=== PATIENT | female | born 1945 | race Caucasian/White ===

== ENCOUNTER 2019-07-25 00:56 | Inpatient (IN) | payer MEDICARE, SELFPAY ==
[2019-07-25] VITALS (36 sets, daily range): BP systolic 105–158; BP diastolic 72–129; PULSE 76–140; RESP 17–31; TEMP 36.4–36.8; O2SAT 91–100; BMI 19.4
--- NOTE | ~2019-07-25 | XR_ITS ---
EXAMINATION: XR chest 1V portable EXAM DATE: 07/28/2019 08:06 INDICATION: Acute on chronic respiratory failure. TECHNIQUE: Portable AP frontal chest x-ray was obtained. Comparison is made to prior examination from 07/27/2019. FINDINGS: There is moderate chronic hyperinflation. Some scattered regions of post infectious residua . No confluent consolidation, pneumothorax or pleural effusion suspected. There are mild bony degener ative changes. Right shoulder replacement. IMPRESSION: Hyperinflation. No acute cardiopulmonary findings. Reviewed, dictated and finalized at location A. SETTER LOCKSTITCH
--- NOTE | ~2019-07-25 | XR_ITS ---
EXAMINATION: XR chest 1V portable DATE: 07/26/2019 05:18 INDICATION: Acute on chronic respiratory failure. TECHNIQUE: A single frontal view of the chest was obtained. COMPARISON: Chest single view 07/25/2019 FINDINGS: The lungs are hyperexpanded with lucencies, consistent with emphysema. A calcified left magdy g nodule is consistent with old granulomatous disease. There is mild atelectasis in the lower lung zo jamila. Skinfolds overlie the chest bilaterally. No pleural effusion or pneumothorax. The heart size is normal. There is a total right shoulder arthroplasty. IMPRESSION: 1. Mild atelectasis in the lower lung zones. 2. Emphysema. Reviewed, dictated and finalized at location A. BUILDER MACHINE
--- NOTE | ~2019-07-25 | XR_ITS ---
EXAMINATION: XR chest PICC line DATE: 07/28/2019 12:34 INDICATION: Central line placement. TECHNIQUE: A single frontal view of the chest was obtained. COMPARISON: Chest single view at 8:01 AM FINDINGS: The lungs are hyperexpanded with lucencies, consistent with emphysema. There is mild atelec tasis in the lower lung zones. No pleural effusion or pneumothorax. The heart size is normal. A left upper extremity peripherally inserted central venous catheter (PICC) is seen with tip at superior cav oatrial junction. There is a total right shoulder arthroplasty. IMPRESSION: 1. PICC tip at superior cavoatrial junction. 2. Mild atelectasis in the lower lung zones. 3. Emphysema. Reviewed, dictated and finalized at location A. EOTYPE MOLDER
--- NOTE | ~2019-07-25 | XR_ITS ---
EXAMINATION: XR chest 1V portable DATE: 07/29/2019 08:05 INDICATION: Chronic obstructive pulmonary disease exacerbation. TECHNIQUE: A single frontal view of the chest was obtained. COMPARISON: Chest single view 07/28/2019 FINDINGS: The lungs are hyperexpanded with lucencies, consistent with emphysema. There is mild atelec tasis in the lower lung zones. A calcified left lung nodule is consistent with old granulomatous dise ase. No pleural effusion or pneumothorax. The heart size is normal. A left upper extremity peripheral ly inserted central venous catheter (PICC) is seen with tip in the superior vena cava. There is a tot al right shoulder arthroplasty. IMPRESSION: 1. Mild atelectasis in the lower lung zones. 2. Emphysema. Reviewed, dictated and finalized at location A. GER INTERMEDIATE
--- NOTE | ~2019-07-25 | CT_ITS ---
EXAMINATION:CT chest high resolution wo al DATE: 07/30/2019 00:59 INDICATION: Hypoxemia. TECHNIQUE: Computed tomography (CT) of the chest was performed without intravenous contrast. Automate d exposure control and iterative reconstruction technique were employed. The dose-length product (DLP ) was 116.01 mGy-cm. COMPARISON: Chest single view 07/29/2019, chest CT 06/07/2007 FINDINGS: There is severe emphysema. There is mild atelectasis in the lower lobes. A calcified left l frances nodule and calcified left hilar lymph nodes are consistent with old granulomatous disease. No ple ural effusion. The heart size is normal. There are coronary artery calcifications. No pericardial eff usion. A left upper extremity peripherally inserted central venous catheter (PICC) is seen with tip a t the superior cavoatrial junction. There is a total right shoulder arthroplasty. There is a stable 2 .4 cm nodule in left thyroid lobe, likely benign. There is moderate thoracic spondylosis and severe c ervical and lumbar spondylosis. IMPRESSION: 1. Severe emphysema. 2. Mild atelectasis in the lower lobes. Reviewed, dictated and finalized at location A. K WAGON COOK
--- NOTE | ~2019-07-25 | XR_ITS ---
EXAMINATION: XR chest 1V portable DATE: 07/25/2019 01:57 INDICATION: Shortness of breath. TECHNIQUE: A single frontal view of the chest was obtained. COMPARISON: Chest single view 06/07/2007 FINDINGS: The lungs are hyperexpanded with lucencies, consistent with emphysema. There is mild atelec tasis in the lower lung zones. A calcified left lung nodule and calcified left hilar lymph nodes are consistent with old granulomatous disease. No pleural effusion or pneumothorax. The heart size is nor mal. There is a total right shoulder arthroplasty. IMPRESSION: 1. Emphysema. 2. Mild atelectasis in the lower lung zones. Reviewed, dictated and finalized at location A. TH ANALYTICS CONSULTANT
--- NOTE | ~2019-07-25 | XR_ITS ---
EXAMINATION: XR chest 1V portable DATE: 07/27/2019 12:13 INDICATION: Chronic obstructive pulmonary disease exacerbation. TECHNIQUE: A single frontal view of the chest was obtained. COMPARISON: Chest single view 07/26/2019 FINDINGS: There are lucencies in the lungs, consistent with emphysema. There is mild atelectasis in t he lower lung zones. No pleural effusion or pneumothorax. The heart size is normal. There is a total right shoulder arthroplasty. IMPRESSION: 1. Mild atelectasis in the lower lung zones. 2. Emphysema. Reviewed, dictated and finalized at location A. CLE INSPECTOR
--- NOTE | 2019-07-25 00:59 | ECG_ITS ---
Measurements Intervals [place] Rate: 133 P: 72 PA: 112 QRS: 71 QRSD: 82 T: 148 QT: 221 QTc: 329 Interpretive Statements SINUS TACHYCARDIA WITH SHORT PA INTERVAL ATRIAL AND VENTRICULAR PREMATURE COMPLEXES NONSPECIFIC ST & T-WAVE ABNORMALITY- DIFFUSE LEADS BASELINE ARTIFACT- I, II, III, AVR, AVL, AVF, V1-V6 ABNORMAL ECG Electronically Signed On 07-25-2019 6:57:35 CONTENT ANALYST by Keny Marcos D.O.
--- NOTE | 2019-07-25 01:00 | ED.SOB ---
HPI - SOB/Dyspnea General Chief Complaint: Shortness of Breath/Dyspnea Stated Complaint: SOB Time Seen by Provider: 07/25/19 00:59 Source: patient and RN notes reviewed Mode of arrival: other Limitations: other (hypoxia and respiratory distress) History of Present Illness HPI Narrative: Pt is a 74 y/o female who presents to the ED with c/o SOB that began 3 days ago (07/22/19). Pt has a hx of COPD and is a former smoker. Pt states that she is not on O2 NC at all times. Pt arrived to the ED with an O2 saturation a in the 70s. Pt states that she can tell whenever her sx starts and she normally goes to her as400 operator at [place] [facility] to get an abx and Prednisone. Pt denies having any nebulizers at home, but she states that she has inhalers. Pt believes she has a bad infection. She states her sx are alleviated minimally whenever she lays in her bed. Pt states that she recently had a chemical stress test. Pt reports a cough producing green phlegm, but deneis a fever, CP, and leg swelling. HPI is limited due to pt hypoxia and pt's respiratory distress. MD elicited complaint: shortness of breath Pertinent past history: COPD and pneumonia Timing: other (still present) Relieving factors: other (minimally while laying in her bed) Known history of: COPD and recurrent pneumonia Associated symptoms: cough (producing green phlegm) and other (limited due to pt hypoxia and respiratory distress) Treatment prior to arrival: oxygen Related Data Home oxygen amount: none Allergies Allergy/AdvReac Type Severity Reaction Status Date / Time No Known Allergies Allergy Unknown Verified 07/25/19 01:17 Review of Systems Review of Systems: Narrative: CONSTITUTIONAL: Denies a fever. CARDIOVASCULAR: Denies chest pain. RESPIRATORY: Reports dyspnea and a cough producing green phlegm. MUSCULOSKELETAL: Denies leg swelling. A complete ROS limited due to pt hypoxia and respiratory distress. [facility] Past Medical History Medical History (Updated 07/25/19 @ 02:15 by Callie Rowe MD) Arthritis Asthma Bronchitis COPD (chronic obstructive pulmonary disease) 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 Emphysema of lung GERD (gastroesophageal reflux disease) Headache IBS (irritable bowel syndrome) Pneumonia Surgical History Surgical History (Updated 07/25/19 @ 01:02 by Nelli Fuentes) History of hysterectomy History of spinal surgery History of thumb surgery right History of tubal ligation Hx of appendectomy Family History Family History (Updated 07/25/19 @ 01:03 by Nelli Fuentes) Other Arthritis Cerebrovascular accident Hypertension Social History Social History (Updated 07/25/19 @ 01:03 by Nelli Fuentes) Smoking status: Former smoker Tobacco type: cigarettes Smoking end date: 10/18/03 Gender identity (if verbalized by the patient): Female Exam Narrative: Exam Narrative: GENERAL: Thin, Severe respiratory distress. HEAD: Normocephalic, atraumatic. EYES: PERRLA and EOMI. ENT: Nares clear, no rhinorrhea or epistaxis. Mucous membranes dry NECK: Supple. CHEST: Coarse respirations throughout, poor aeration, with inspiratory and expiratory wheezing, severe respiratory distress. Use of accessory muscles. Hypoxic. HEART: Tachycardiac with regular rhythm. No murmur heard. Normal peripheral pulses. ABDOMEN: Soft, nontender, nondistended, normal active bowel sounds. EXTREMITIES: Normal range of motion. No edema. SKIN: Warm, dry, no rash. NEURO: No focal deficits. Alert and oriented X3. Course Course Emergency Course: Patient presented for evaluation of shortness of breath. At the time of initial assessment, ABCs are intact, vital signs notable for hypertension, tachycardia, tachypnea, hypoxia. Patient is not on home oxygen, oxygen saturation when she arrived to her room are in the 70s. Patient was immediately placed on a nonrebreather, respiratory therapy was called to bedside, immediately patient was given IV fluids, Solu-Medr
[2019-07-25] MEDS: ALBUTEROL SULFATE NEB 2.5 MG/0.5 ML INH 20 MG INHALATION (01:20)
[2019-07-25] MEDS: IPRATROPIUM BR 0.02% INH SOLN 0.5 MG/2.5 ML VIAL 2 MG INHALATION (01:21)
[2019-07-25 01:23] LABS: Basophils Percent Auto 0.2 % (0.2-1.2); Hematocrit 48.9 % (37.0-47.0); Immature Granulocyte Absolute 0.05 K/mm3 (0.00-0.031); Immature Granulocyte Percent A 0.4 % (0-0.5); Lymphocytes Absolute Auto 0.59 K/mm3 (0.9-3.2); Lymphocytes Percent Auto 4.8 % (18.3-44.2); Mean Corpuscular HGB Conc 32.7 g/dl (32-36); Mean Corpuscular Hemoglobin 29.7 pg (26-34); Mean Corpuscular Volume 90.9 fl (80-100); Mean Platelet Volume 9.8 fl (7.4-10.4); Monocytes Absolute Auto 0.5 K/mm3 (0.1-0.6); Monocytes Percent Auto 3.9 % (2.6-8.5); Neutrophils Absolute Auto 11.2 K/mm3 (1.3-6.7); Neutrophils Percent Auto 90.7 % (45.5-73.1); Platelet Count Result 398 k/mm3 (150-375); Red Blood Count 5.38 M/mm3 (4.2-5.4); Red Cell Distribution Width 14.4 % (11.5-14.5); White Blood Count 12.3 K/mm3 (4.5-10.0)
[2019-07-25] MEDS: SODIUM CHLORIDE 0.9% IV 1,000 ML 999 ML IV CONT ×2 (01:24→02:16)
[2019-07-25] MEDS: methylPREDNISolone SOD SUCC 125 MG VIAL IV PUSH ×3 (01:24→21:21)
[2019-07-25] MEDS: MAGNESIUM SULF 2 GM/WATER 50ML 2 GM/50 ML BAG IVPB (01:25)
[2019-07-25 01:34] LABS: Alveolar/Arterial O2 Gradient 168.5 mmHg; Base Excess ABG 2.3 mEq/l (+/-2.0); Carboxyhemoglobin 0.7 % THb (0-2.0); Device NASAL CANNULA; Fractional Inspired Oxygen 40 %; HCO3 ABG 27.2 mEq/l (22.0-26.0); Methemoglobin ABG 0.2 %THb (0-1.5); Oxygen Content ABG 19.7 %vol (16.0-22.0); Oxygen Saturation ABG 93.6 % (95.0-100.0); Oxyhemoglobin 92.1 % THb (90.0-100.0); PCO2 ABG 43.2 mmHg (35.0-45.0); PO2 FiO2 Ratio Arterial Blood 1.67 %; Site Drawn RIGHT BRACHIAL; Total Hemoglobin 15.2 g/dL (12.0-18.0); pH ABG 7.417 (7.350-7.450)
[2019-07-25 01:35] LABS: INR 1.7; Prothrombin Time 19.7 Seconds (11.1-14.7)
[2019-07-25 01:36] LABS: Partial Thromboplastin Time 28.6 SECONDS (22.3-36.8)
[2019-07-25 02:15] LABS: Blood Urea Nitrogen 18 mg/dL (7-17); Calcium 8.6 mg/dL (8.4-10.2); Carbon Dioxide 27 mmol/L (22-30); Chloride 99 mmol/L (98-107); Estimated Glomerular Filt Rate > 60; Glucose 151 mg/dL (65-105); Potassium 4.2 mmol/L (3.4-5.0); Sodium 136 mmol/L (137-145)
[2019-07-25] MEDS: LORAZEPAM INJ 2 MG/ML VIAL 0.5 MG IV PUSH (02:16)
[2019-07-25 02:24] LABS: NT Pro B Type Natriuretic Pept 345 PG/ML (5-100)
[2019-07-25 02:37] LABS: Lactic Acid Reflex 1.1 mmol/L (0.7-2.1)
[2019-07-25] MEDS: LORAZEPAM INJ 2 MG/ML VIAL 1 MG IV PUSH (02:57)
[2019-07-25] MEDS: SODIUM CHLORIDE 0.9% IV 1,000 ML 125 ML IV CONT ×2 (04:00→12:28)
[2019-07-25 06:01] LABS: Base Excess ABG -3.4 mEq/l (+/-2.0); HCO3 ABG 24.2 mEq/l (22.0-26.0); Oxygen Saturation ABG 96.3 % (95.0-100.0); PCO2 ABG 53.8 mmHg (35.0-45.0); PO2 ABG 95.8 mmHg (80.0-100.0)
[2019-07-25 06:02] LABS: Alveolar/Arterial O2 Gradient 127.5 mmHg; Carboxyhemoglobin 0.9 % THb (0-2.0); Methemoglobin ABG 0.1 %THb (0-1.5); Oxygen Content ABG 17.9 %vol (16.0-22.0); Oxyhemoglobin 95.1 % THb (90.0-100.0); PO2 FiO2 Ratio Arterial Blood 2.39 %; Reduced Hemoglobin 3.9 %THb (0-5.0); Total Hemoglobin 13.3 g/dL (12.0-18.0)
[2019-07-25 06:03] LABS: Device NON-INVASIVE VENT; Fractional Inspired Oxygen 40 %; Site Drawn RIGHT BRACHIAL
[2019-07-25 06:04] LABS: Non-Invasive Expiratory Pressure 5 CMH2O; Non-Invasive Inspiratory Pressure 12 CMH2O; Non-Invasive Vent Rate 8 /MIN
[2019-07-25] MEDS: methylPREDNISolone SOD SUCC 125 MG VIAL 60 MG IV PUSH (06:24)
[2019-07-25 06:44] LABS: Troponin I 0.391 ng/mL (0.000-0.034)
[2019-07-25] MEDS: ALBUTEROL SULFATE NEB 2.5 MG/0.5 ML INH 5 MG INHALATION ×3 (07:49→20:04)
[2019-07-25] MEDS: IPRATROPIUM BR 0.02% INH SOLN 0.5 MG/2.5 ML VIAL INHALATION ×3 (07:49→20:04)
[2019-07-25 09:05] LABS: Troponin I 0.527 ng/mL (0.000-0.034)
--- NOTE | 2019-07-25 10:10 | HP_ITS ---
DATE OF SERVICE: 07/25/2019 TIME: 035 CHIEF COMPLAINT: Shortness of breath. HISTORY OF PRESENT ILLNESS: The patient is a 74-year-old female with a past medical history of COPD, who presented to the ER with shortness of breath for the last 3 days. The patient is a former smoker, who quit smoking about 15 years ago. She has not been hospitalized for respiratory symptoms in over 10 years. Her last COPD exacerbation was in 2006. She has never required intubation due to her respiratory symptoms. The patient reports that for the last 3 days she has had a productive cough of green sputum with some green rhinorrhea as well. She has been having some mildly elevated temperatures up to 99 degrees at home, which occurred the day prior to presentation. She reports that her symptoms were relatively manageable, but then suddenly last night she became acutely more short of breath and came to the ER. She initially thought her symptoms were due to an upper respiratory tract infection and was not all that concerned until her shortness of breath worsened. When the patient arrived to the ER, she was saturating 76% on room air and required 5 L nasal cannula in order to get her oxygen saturations to 93%. She denies any nausea or vomiting. She reports her appetite has been relatively stable. 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 During that period of time, she had lost several pounds, but reports that she has always had a rather relatively thin body habitus. She thinks that her weight has been stable since that time. She denies any chest pain, palpitations, orthopnea, or paroxysmal nocturnal dyspnea. She has not noticed any lower extremity swelling. When she arrived to the ER, her heart rate was in the 120s to 130s, but she remained in sinus rhythm. She does not have any nebulizers at home. She reports her symptoms are improved minimally when she lays down. She recently had a chemical stress test that was reportedly negative. She denies any recent ill contacts. The patient does have a history of irritable bowel syndrome and has intermittent constipation. She denies any recent hematochezia or melena. REVIEW OF SYSTEMS: Except as documented, all systems were reviewed and are negative with pertinent positives and negatives per HPI. PAST MEDICAL HISTORY: 1. Moderate COPD noted on PFTs from January 2005. 2. Hypertension. 3. Chronic pain. 4. Rheumatoid arthritis affecting the hands and knees bilaterally. 5. Vitamin D deficiency. 6. Distant history of left lower extremity DVT in 2006. 7. Lumbar spine surgery x3. She reports that they told her that the next surgery she would have to have would be a fusion, but she is unsure if she would want to undergo that procedure. 8. 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 9. Right thumb reconstructive surgery. 10. Appendectomy. 11. Hysterectomy with bilateral salpingo-oophorectomy. 12. Right bunionectomy, November 2008. 13. Right reverse shoulder surgery 3 or 4 years ago. FAMILY HISTORY: Mother who was obese and of heart disease at 62 years old. Father who was an alcoholic and of complications of cirrhosis. A younger sister had a history of breast cancer but is still living and otherwise healthy. SOCIAL HISTORY: The patient lives with her of 40 years in [place]. She is a retired chartered accountant. She rarely drinks any alcohol. She quit smoking in 2003. Prior to quitting, she smoked a pack of cigarettes per day since a teenager for a little over a 43-[id number]-[id number]-year smoking history. She denies any illicit substance use. She is independent in activities of daily living. PRIMARY CARE [facility]YSI
--- NOTE | 2019-07-25 12:29 | WPDCNINT ---
Assessment and Plan Assessment and plan (1) Acute and chronic respiratory failure: Code(s): J96.20 - Acute and chronic respiratory failure, unspecified whether with hypoxia or hypercapnia Status: Acute Assessment and Plan: acute on chronic respiratory failure most likely related to pneumonia, COPD exacerbation - continue azithromycin, ceftriaxone - continue bronchodilators, Solu-Medrol - continue BiPAP (2) Pneumonia: Qualifiers: Laterality: bilateral Lung location: lower lobe of lung Pneumonia type: due to unspecified organism Qualified Code(s): J18.9 - Pneumonia, unspecified organism Code(s): J18.9 - Pneumonia, unspecified organism Status: Acute Assessment and Plan: patient with cough, green sputum likely bronchitis/pneumonia - continue antibiotics as above - sputum cultures have been ordered (3) Acute exacerbation of chronic obstructive airways disease: Code(s): J44.1 - Chronic obstructive pulmonary disease with (acute) exacerbation Status: Acute Assessment and Plan: continue BiPAP, steroids, antibiotics and bronchodilators (4) Anxiety: Code(s): F41.9 - Anxiety disorder, unspecified Status: Acute Assessment and Plan: patient very anxious, - started on Precedex infusion and tolerating BiPAP better (5) Elevated troponin: Code(s): R79.89 - Other specified abnormal findings of blood chemistry Status: Acute Assessment and Plan: patient with elevated troponin likely related to severe respiratory distress and acute on chronic respiratory failure - will obtain 1 more value of troponin. (6) DVT prophylaxis: Code(s): Z29.9 - Encounter for prophylactic measures, unspecified Status: Acute Assessment and Plan: Lovenox Additional Plan Discussed with patient, her and her daughter and updated them with patient's condition and plan of care. I answered all questions. We will work with the patient and help her get the right fit for her BiPAP mask so she is more compliant. Also discussed with them regarding intubation if necessary which the patient agreed for intubation. Code status: Full code Critical care time spent: 41 minutes Due to a high probability of clinically significant, life threatening deterioration, the patient required my highest level of preparedness to intervene emergently and I personally spent this critical care time directly and personally managing the patient. This critical care time included obtaining a history; examining the patient; pulse oximetry; ordering and review of studies; arranging urgent treatment with development of a management plan; evaluation of patient's response to treatment; frequent reassessment; and discussions with other providers. It was exclusive of separately billable procedures and treating other patients and teaching time. Please see Assessment and Plan section and the rest of the note for further information on patient assessment and treatment Pin Game Machine Inspector Consult Note Consult date: 07/25/19 Time Seen: 06:58 Reason for consult: acute on chronic respiratory failure, pneumonia, cough, COPD exacerbation HPI: Pamela Gallegos is a 74 year old female with past medical history of COPD, emphysema, GERD, IBS, pneumonia, arthritis a bronchitis presented the ED on 07/25/2019 with complains of shortness of breath /dyspnea along with cough and green sputum production. Patient denies any fevers, chest pain leg swelling. symptoms have been ongoing for about 3 days which worsened on the day of admission which prompted her to come to the ED. Upon arrival in the ER patient was saturating 76% on room air, required 5 L nasal cannula which brought her oxygen saturations 93%. patient was placed on BiPAP and transfer the ICU for further management. Patient seen examined the ICU, is in respiratory distress and using accessory muscles. Patient has been been
[2019-07-25] MEDS: MORPHINE SULFATE 4 MG/ML INJ IV PUSH ×3 (12:32→20:30)
[2019-07-25 14:59] LABS: Troponin I 0.409 ng/mL (0.000-0.034)
--- NOTE | 2019-07-25 15:19 | PM.IMPN ---
Progress Note: A&P Assessment and Plan (1) Elevated troponin: Code(s): R79.89 - Other specified abnormal findings of blood chemistry Status: Acute Assessment and Plan: Likley secondary to respiratory distress (2) Anxiety: Code(s): F41.9 - Anxiety disorder, unspecified Status: Acute Assessment and Plan: Precedex started by ICU Attending (3) DVT prophylaxis: Code(s): Z29.9 - Encounter for prophylactic measures, unspecified Status: Acute Assessment and Plan: Lovenox (4) Acute and chronic respiratory failure: Code(s): J96.20 - Acute and chronic respiratory failure, unspecified whether with hypoxia or hypercapnia Status: Acute Assessment and Plan: Secondary to copd excerbation , breathing treatments, Iv steroids and iv rocephin and zithromax Pt is npo with iv fluids Pt encouraged to wear her BIPAP machine as she is still in distress Cxr shows emphysema Pt is still smoking (5) Acute exacerbation of chronic obstructive airways disease: Code(s): J44.1 - Chronic obstructive pulmonary disease with (acute) exacerbation Status: Acute Assessment and Plan: Previous admission in 2006 Subjective Date/time seen: 07/25/19 15:19 Interval history: 74-year-old female with a past medical history of COPD, who presented to the ER with shortness of breath for the last 3 days. Admitted with acute on chronic respiratory distress secondary to COPD. Pt is not tolerating the BIPAP encouraged to wear the mask today. Pt feels hungry and thirsty. Pt is NPO due to ongoing respiratory distress. Review of Systems Review of Systems: Narrative: Tired, fatigue Cardiovascular: Cardiovascular: Denies chest pain and Denies palpitations Respiratory: Respiratory: Reports chest congestion, Reports cough, Reports dyspnea, Reports dyspnea on exertion and Reports wheezing Exam Narrative: Exam Narrative: Thin appearing, Const: General: in distress Neck: Neck: No no JVD Resp: Auscultation: wheezes and diminished lung sounds (Bilaterally ) Cardio: Rate: tachycardic GI: Auscultation: normal bowel sounds Neuro: Cognition (Neuro): normal cognition Extrem: General: normal to inspection Psych: Affect: Anxious affect present Objective Data Vital Signs Vital Signs: Vital Signs - 24 hr 07/25/19 01:00 07/25/19 01:19 07/25/19 01:25 Temperature 36.5 C Pulse Rate 138 H 128 H 120 H Respiratory Rate 22 H 30 H 22 H Blood Pressure 158/109 H Pulse Oximetry 94 96 07/25/19 01:30 07/25/19 01:34 07/25/19 01:45 Temperature Pulse Rate 118 H 119 H 129 H Respiratory Rate 22 H 19 31 H Blood Pressure 117/83 Pulse Oximetry 97 97 98 07/25/19 01:46 07/25/19 01:55 07/25/19 02:00 Temperature Pulse Rate 128 H 130 H 132 H Respiratory Rate 20 29 H 30 H Blood Pressure 146/102 H Pulse Oximetry 97 100 98 07/25/19 02:01 07/25/19 02:15 07/25/19 02:16 Temperature Pulse Rate 132 H 136 H 134 H Respiratory Rate 31 H 26 H 29 H Blood Pressure 145/129 H 147/112 H Pulse Oximetry 99 100 99 07/25/19 02:30 07/25/19 02:32 07/25/19 02:41 Temperature Pulse Rate 133 H 134 H 134 H Respiratory Rate 31 H 21 H 23 H Blood Pressure 139/95 H Pulse Oximetry 99 99 07/25/19 03:35 07/25/19 03:40 07/25/19 06:00 Temperature 36.8 C Pulse Rate 90 130 H 128 H Respiratory Rate 28 H 27 H 28 H Blood Pressure 112/72 118/80 Pulse Oximetry 96 97 96 07/25/19 07:30 07/25/19 07:50 07/25/19 08:00 Temperature 36.4 C Pulse Rate 120 H 120 H 120 H Respiratory Rate 25 H 20 26 H Blood Pressure 131/78 Pulse Oximetry 98 98 07/25/19 10:00 07/25/19 12:00 07/25/19 14:00 Temperature 36.8 C Pulse Rate 111 H 140 H 83 Respiratory Rate 24 H 25 H 17 Blood Pressure 136/75 139/97 H 105/79 Pulse Oximetry 91 96 97 Intake/Output Intake/Output: Intake & Output 07/22/19 07/23/19 07/24/19 07/25/19 23:59 23:59 23:59 23:59 Intak
[2019-07-25 15:49] LABS: Alveolar/Arterial O2 Gradient 52.9 mmHg; Base Excess ABG -0.5 mEq/l (+/-2.0); Fractional Inspired Oxygen 24 %; HCO3 ABG 25.1 mEq/l (22.0-26.0); Oxygen Content ABG 16.7 %vol (16.0-22.0); Oxyhemoglobin 91.2 % THb (90.0-100.0); PCO2 ABG 44.9 mmHg (35.0-45.0); PO2 ABG 64.8 mmHg (80.0-100.0); pH ABG 7.365 (7.350-7.450)
[2019-07-25] MEDS: ENOXAPARIN 40 MG/0.4 ML SYRINGE SUB-Q (16:22)
[2019-07-26] VITALS (26 sets, daily range): BP systolic 116–174; BP diastolic 71–130; PULSE 77–175; RESP 14–32; TEMP 36.4–37; O2SAT 92–100; BMI 19.5
[2019-07-26] MEDS: SODIUM CHLORIDE 0.9% IV 1,000 ML 75 ML IV CONT (00:45)
[2019-07-26] MEDS: MORPHINE SULFATE 4 MG/ML INJ IV PUSH ×3 (01:06→19:25)
[2019-07-26] MEDS: IPRATROPIUM BR 0.02% INH SOLN 0.5 MG/2.5 ML VIAL INHALATION ×4 (01:51→19:25)
[2019-07-26] MEDS: ALBUTEROL SULFATE NEB 2.5 MG/0.5 ML INH 5 MG INHALATION ×3 (01:51→13:38)
[2019-07-26 04:34] LABS: Hematocrit 35.2 % (37.0-47.0); Hemoglobin 11.7 g/dL (12.0-15.0); Immature Granulocyte Absolute 0.02 K/mm3 (0.00-0.031); Immature Granulocyte Percent A 0.3 % (0-0.5); Lymphocytes Absolute Auto 0.66 K/mm3 (0.9-3.2); Lymphocytes Percent Auto 9.8 % (18.3-44.2); Mean Corpuscular HGB Conc 33.2 g/dl (32-36); Mean Corpuscular Hemoglobin 29.9 pg (26-34); Mean Platelet Volume 9.6 fl (7.4-10.4); Monocytes Absolute Auto 0.4 K/mm3 (0.1-0.6); Monocytes Percent Auto 5.5 % (2.6-8.5); Neutrophils Absolute Auto 5.7 K/mm3 (1.3-6.7); Neutrophils Percent Auto 84.4 % (45.5-73.1); Platelet Count Result 248 k/mm3 (150-375); Red Blood Count 3.91 M/mm3 (4.2-5.4); Red Cell Distribution Width 14.6 % (11.5-14.5); White Blood Count 6.7 K/mm3 (4.5-10.0)
[2019-07-26 05:03] LABS: Alanine Aminotransferase 33 U/L (4-35); Albumin Level 3.3 g/dL (3.5-5.1); Alkaline Phosphatase 79 U/L (38-126); Aspartate Amino Transferase 28 U/L (14-36); Bilirubin,Total 0.1 mg/dL (0.2-1.3); Blood Urea Nitrogen 25 mg/dL (7-17); CRP 1.5 mg/dL (<1.0); Calcium 7.9 mg/dL (8.4-10.2); Carbon Dioxide 25 mmol/L (22-30); Chloride 102 mmol/L (98-107); Estimated Glomerular Filt Rate > 60; Glucose 146 mg/dL (65-105); Magnesium 2.3 mg/dL (1.6-2.3); Phosphorus 2.4 mg/dL (2.5-4.5); Potassium 3.8 mmol/L (3.4-5.0); Sodium 135 mmol/L (137-145)
[2019-07-26 05:08] LABS: Alveolar/Arterial O2 Gradient 137.4 mmHg; Base Excess ABG -0.8 mEq/l (+/-2.0); Carboxyhemoglobin 0.3 % THb (0-2.0); Fractional Inspired Oxygen 40 %; HCO3 ABG 24.2 mEq/l (22.0-26.0); Methemoglobin ABG 0.3 %THb (0-1.5); Oxygen Content ABG 17.1 %vol (16.0-22.0); Oxygen Saturation ABG 97.5 % (95.0-100.0); Oxyhemoglobin 96.4 % THb (90.0-100.0); PO2 ABG 100.7 mmHg (80.0-100.0); PO2 FiO2 Ratio Arterial Blood 2.52 %; Total Hemoglobin 12.5 g/dL (12.0-18.0); pH ABG 7.388 (7.350-7.450)
[2019-07-26 05:14] LABS: Device NON-INVASIVE VENT; Non-Invasive Expiratory Pressure 5 CMH2O; Non-Invasive Inspiratory Pressure 12 CMH2O; Non-Invasive Vent Rate 4 /MIN; Site Drawn RIGHT BRACHIAL
[2019-07-26] MEDS: methylPREDNISolone SOD SUCC 125 MG VIAL IV PUSH (05:21)
--- NOTE | 2019-07-26 06:00 | ECG_ITS ---
Measurements Intervals [place] Rate: 81 P: 61 ND: 118 QRS: 55 QRSD: 79 T: -9 QT: 373 QTc: 434 Interpretive Statements SINUS RHYTHM WITH SHORT ND INTERVAL NONSPECIFIC T-WAVE ABNORMALITY- INFERIOR LEADS BORDERLINE ECG Electronically Signed On 07-26-2019 9:18:37 BOXING PROMOTER by Keny Marcos D.O.
[2019-07-26 07:06] LABS: Device NASAL CANNULA; Site Drawn RIGHT BRACHIAL
[2019-07-26] MEDS: ALPRAZOLAM 0.25 MG TABLET PO ×3 (08:48→19:11)
--- NOTE | 2019-07-26 11:05 | WPDINTPN ---
Progress Note: A&P Assessment and Plan (1) Acute and chronic respiratory failure: Code(s): J96.20 - Acute and chronic respiratory failure, unspecified whether with hypoxia or hypercapnia Status: Acute Assessment and Plan: acute on chronic respiratory failure most likely related to pneumonia, COPD exacerbation - continue azithromycin, ceftriaxone - continue bronchodilators, Solu-Medrol, will decrease Solu-Medrol to 60 mg q.6 hours as patient continues to wheeze - continue BiPAP - ABGs and chest x-ray reviewed (2) Pneumonia: Qualifiers: Laterality: bilateral Lung location: lower lobe of lung Pneumonia type: due to unspecified organism Qualified Code(s): J18.9 - Pneumonia, unspecified organism Code(s): J18.9 - Pneumonia, unspecified organism Status: Acute Assessment and Plan: patient with cough, green sputum likely bronchitis/pneumonia - continue antibiotics as above - sputum cultures have been ordered (3) Acute exacerbation of chronic obstructive airways disease: Code(s): J44.1 - Chronic obstructive pulmonary disease with (acute) exacerbation Status: Acute Assessment and Plan: continue BiPAP, steroids, antibiotics and bronchodilators (4) Anxiety: Code(s): F41.9 - Anxiety disorder, unspecified Status: Acute Assessment and Plan: patient very anxious, - will wean Precedex, started patient on small dose Xanax (5) Elevated troponin: Code(s): R79.89 - Other specified abnormal findings of blood chemistry Status: Acute Assessment and Plan: patient with elevated troponin likely related to severe respiratory distress and acute on chronic respiratory failure - troponins have plateaued and trending down, (6) DVT prophylaxis: Code(s): Z29.9 - Encounter for prophylactic measures, unspecified Status: Acute Assessment and Plan: Lovenox Additional Plan Discussed with patient, her and her daughter and updated them with patient's condition and plan of care. I answered all questions. I will allow the patient to eat and drink. Discussed with patient regarding intermittent BiPAP use to which she agrees Code status: Full code Critical care time spent: 32 minutes Due to a high probability of clinically significant, life threatening deterioration, the patient required my highest level of preparedness to intervene emergently and I personally spent this critical care time directly and personally managing the patient. This critical care time included obtaining a history; examining the patient; pulse oximetry; ordering and review of studies; arranging urgent treatment with development of a management plan; evaluation of patient's response to treatment; frequent reassessment; and discussions with other providers. It was exclusive of separately billable procedures and treating other patients and teaching time. Please see Assessment and Plan section and the rest of the note for further information on patient assessment and treatment Subjective Date/time seen: 07/26/19 11:05 chief complaint: acute on chronic respiratory failure, COPD exacerbation, cough, pneumonia /bronchitis 07/26/2019: Patient seen and examined this morning. Remains on Precedex infusion at 0.5 mcg. Patient is receiving Solu-Medrol 125 mg q.8 hours per hospitalist. According the bedside RN, the patient is very anxious and the state of panic attack after receiving Solu-Medrol. Patient states her breathing is much better, wants to eat and drink, denies any chest pain, abdominal pain, nausea vomiting. Patient still complains of being winded. Review of Systems Review of Systems: All systems reviewed & are unremarkable except as noted in HPI and below Exam Const: General: in distress ( Respiratory distress) and uncomfortable HENMT: Other: BiPAP mask in place Eyes: Sclera: sclerae normal Pupils: Equal, round and reactive pu
--- NOTE | 2019-07-26 11:12 | PM.IMPN ---
Progress Note: A&P Assessment and Plan (1) Elevated troponin: Code(s): R79.89 - Other specified abnormal findings of blood chemistry Status: Acute Assessment and Plan: Likley secondary to respiratory distress (2) Anxiety: Code(s): F41.9 - Anxiety disorder, unspecified Status: Acute Assessment and Plan: Precedex started by ICU Attending, wean of today. restart pts home medications (3) DVT prophylaxis: Code(s): Z29.9 - Encounter for prophylactic measures, unspecified Status: Acute Assessment and Plan: Lovenox (4) Acute and chronic respiratory failure: Code(s): J96.20 - Acute and chronic respiratory failure, unspecified whether with hypoxia or hypercapnia Status: Acute Assessment and Plan: Secondary to copd excerbation , breathing treatments, Iv steroids and iv rocephin and zithromax Pt is respiratory distress is better, can start regular diet today Pt encouraged to wear her BIPAP mask as tolerated prn Cxr shows emphysema Pt is still smoking (5) Acute exacerbation of chronic obstructive airways disease: Code(s): J44.1 - Chronic obstructive pulmonary disease with (acute) exacerbation Status: Acute Assessment and Plan: Previous admission in 2006 Subjective Date/time seen: 07/26/19 11:12 Interval history: 74-year-old female with a past medical history of COPD, who presented to the ER with shortness of breath for the last 3 days. Admitted with acute on chronic respiratory distress secondary to COPD. Pt is not tolerating the BIPAP encouraged to wear the mask today. Pt feels better today less SOB. Pt can start a regular diet today. Pt to have water to drink near by as the mask dries her mouth. Can restart her home medications today. Pt to wean of precedex hopeful transfer to medical floor soon. Review of Systems Review of Systems: All systems reviewed & are unremarkable except as noted in HPI and below Cardiovascular: Cardiovascular: Denies chest pain, Denies palpitations, Reports dyspnea and Reports dyspnea on exertion Respiratory: Respiratory: Reports chest congestion, Reports cough, Reports dyspnea, Reports dyspnea on exertion and Reports wheezing Endocrine: Endocrine: Denies palpitations Allergic/Immunologic: Allergic/Immunologic: Reports wheezing Exam Narrative: Exam Narrative: Thin appearing, Const: General: in distress Neck: Neck: No no JVD Resp: Auscultation: wheezes and diminished lung sounds (Bilaterally ) Cardio: Rate: tachycardic GI: Auscultation: normal bowel sounds Neuro: Cognition (Neuro): normal cognition Extrem: General: normal to inspection Psych: Affect: Anxious affect present Objective Data Vital Signs Vital Signs: Vital Signs - 24 hr 07/25/19 12:00 07/25/19 13:20 07/25/19 13:45 Temperature 36.8 C Pulse Rate 140 H 108 H 116 H Respiratory Rate 25 H 24 H 20 Blood Pressure 139/97 H Pulse Oximetry 96 98 07/25/19 13:55 07/25/19 14:00 07/25/19 16:00 Temperature 36.4 C Pulse Rate 118 H 83 83 Respiratory Rate 20 17 19 Blood Pressure 105/79 109/72 Pulse Oximetry 97 92 07/25/19 18:00 07/25/19 20:00 07/25/19 20:04 Temperature 36.6 C Pulse Rate 87 84 88 Respiratory Rate 23 H 25 H 22 H Blood Pressure 125/76 136/90 Pulse Oximetry 97 96 07/25/19 20:16 07/25/19 20:19 07/25/19 22:00 Temperature Pulse Rate 81 76 83 Respiratory Rate 24 H 26 H 26 H Blood Pressure 111/75 Pulse Oximetry 98 96 07/25/19 23:10 07/26/19 00:00 07/26/19 01:52 Temperature 36.6 C Pulse Rate 84 77 87 Respiratory Rate 25 H 16 27 H Blood Pressure 120/81 Pulse Oximetry 96 97 07/26/19 01:56 07/26/19 01:59 07/26/19 02:00 Temperature Pulse Rate 85 86 103 H Respiratory Rate 23 H 23 H 19 Blood Pressure 116/90 Pulse Oximetry 96 96 07/26/19 04:00 07/26/19 05:11 07/26/19 06:00 Temperature 36.4 C Pulse Rate 77 79 106 H Respiratory Rate 14 22
[2019-07-26] MEDS: ENOXAPARIN 40 MG/0.4 ML SYRINGE SUB-Q (11:50)
[2019-07-26] MEDS: methylPREDNISolone SOD SUCC 125 MG VIAL 60 MG IV PUSH ×2 (12:55→17:26)
--- NOTE | 2019-07-26 19:15 | P.PNCROSS_ITS ---
Event Note Event Note Event Note: S: I received a call from the patient's nurse, Brenda, at 19:14 with an update on the patient. For the last several hours, the patient has become progressively more tachycardic and is now in a narrow complex rhythm with a ventricular rate in the 170s. Patient feeling more short of breath and has been started back on the BiPAP. At the time my evaluation, the patient is complaining only of shortness of breath and anxiety. She is coughing up dark lawrence/green phlegm. She denies palpitations and feeling of a racing heart. No lightheadedness or dizziness. No chest or pleuritic pain. She denies nausea and diaphoresis. O: Thin, frail elderly female sitting up in bed, cross-legged style. She is receiving a nebulizer via BiPAP. She is tachypneic and tachycardic, with a respiratory rate between 30 and 35 breaths per minute and a heart rate currently at 172 beats per minute. She is using accessory muscles to help ventilate. Lung sounds are significantly diminished throughout with inspiratory and expiratory wheezing, with increased inspiratory to expiratory phase. Scattered rhonchi clear with coughing. She appears mildly anxious. She is able to speak in 4 to 5 word sentences through the BiPAP. No edema noted. Skin is warm and slightly moist. Imaging and labs were reviewed from today, and she has significant emphysematous changes on chest x-rayWith mild atelectasis. A: Acute bronchospasm and tachycardia in a patient currently being treated for pneumonia, acute on chronic respiratory failure, and COPD exacerbation. P: Stat nebulizer, but change albuterol to Xopenex. Continue BiPAP. Morphine 4 milligrams given for air hunger as well as Ativan 1 milligram for anxiety. Solu-Medrol was decreased this afternoon to 60 milligrams q.6 hours; apparently patient did have some issues with higher doses of steroids. In fact, she was requiring a Precedex drip in order to tolerate such high doses of steroids. I think that she is tachycardic due to her work of breathing, and do not feel any intervention is necessary at this time, except for trying to improve her respiratory status. Should she not improve, she will be intubated and she is agreeable to that if need be. The patient needs to stop using her vape pen, and this subject was broached for short period of time. Due to a high probability of clinically significant, life threatening deterioration, the patient required my highest level of preparedness to intervene emergently and I personally spent this critical care time directly and personally managing the patient. This critical care time included obtaining a history; examining the patient; pulse oximetry; ordering and review of studies; arranging urgent treatment with development of a management plan; evaluation of patient's response to treatment; frequent reassessment; and discussions with the enrobing machine corder. It was exclusive of separately billable procedures and treating other patients and teaching time. Please see Assessment and Plan section and the rest of the note for further information on patient assessment and treatment. A total of 36 minutes critical care time was spent in attention of this patient.
--- NOTE | 2019-07-26 19:51 | ECG_ITS ---
Measurements Intervals [place] Rate: 137 P: 61 VT: 115 QRS: 55 QRSD: 73 T: -60 QT: 270 QTc: 408 Interpretive Statements SINUS TACHYCARDIA WITH SHORT VT INTERVAL BORDERLINE ST-T WAVE ABNORMALITY- INF/LAT LEADS BASELINE ARTIFACT- V5 ABNORMAL ECG Electronically Signed On 07-27-2019 7:20:56 CERTIFIED ANESTHESIOLOGIST ASSISTANT by Keny Marcos D.O.
[2019-07-26] MEDS: LORAZEPAM INJ 2 MG/ML VIAL 0.5 MG IV PUSH ×2 (19:55→21:20)
[2019-07-26 20:21] LABS: Alveolar/Arterial O2 Gradient 137.1 mmHg; Base Excess ABG 1.1 mEq/l (+/-2.0); Carboxyhemoglobin 0.3 % THb (0-2.0); Device NON-INVASIVE VENT; Fractional Inspired Oxygen 40 %; HCO3 ABG 27.1 mEq/l (22.0-26.0); Methemoglobin ABG 0.4 %THb (0-1.5); Oxygen Content ABG 19.4 %vol (16.0-22.0); Oxygen Saturation ABG 96.8 % (95.0-100.0); Oxyhemoglobin 95.6 % THb (90.0-100.0); PCO2 ABG 48.1 mmHg (35.0-45.0); PO2 ABG 92.8 mmHg (80.0-100.0); PO2 FiO2 Ratio Arterial Blood 2.32 %; Reduced Hemoglobin 3.7 %THb (0-5.0); Site Drawn LEFT BRACHIAL; Total Hemoglobin 14.4 g/dL (12.0-18.0); pH ABG 7.368 (7.350-7.450)
[2019-07-26 20:22] LABS: Non-Invasive Expiratory Pressure 5 CMH2O; Non-Invasive Inspiratory Pressure 12 CMH2O; Non-Invasive Vent Rate 4 /MIN
[2019-07-27] VITALS (26 sets, daily range): BP systolic 102–194; BP diastolic 74–162; PULSE 69–177; RESP 17–29; TEMP 36.1–37.1; O2SAT 91–98
[2019-07-27] MEDS: methylPREDNISolone SOD SUCC 125 MG VIAL 60 MG IV PUSH ×4 (00:42→17:05)
[2019-07-27] MEDS: IPRATROPIUM BR 0.02% INH SOLN 0.5 MG/2.5 ML VIAL INHALATION ×4 (01:37→20:55)
[2019-07-27] MEDS: LORAZEPAM INJ 2 MG/ML VIAL 1 MG IV PUSH ×2 (01:47→10:24)
[2019-07-27 04:54] LABS: Basophils Percent Auto 0.1 % (0.2-1.2); Hematocrit 39.1 % (37.0-47.0); Hemoglobin 12.8 g/dL (12.0-15.0); Immature Granulocyte Absolute 0.02 K/mm3 (0.00-0.031); Immature Granulocyte Percent A 0.2 % (0-0.5); Lymphocytes Absolute Auto 0.42 K/mm3 (0.9-3.2); Lymphocytes Percent Auto 4.8 % (18.3-44.2); Mean Corpuscular HGB Conc 32.7 g/dl (32-36); Mean Corpuscular Hemoglobin 29.9 pg (26-34); Mean Corpuscular Volume 91.4 fl (80-100); Mean Platelet Volume 9.8 fl (7.4-10.4); Monocytes Absolute Auto 0.4 K/mm3 (0.1-0.6); Monocytes Percent Auto 4.6 % (2.6-8.5); Neutrophils Absolute Auto 7.9 K/mm3 (1.3-6.7); Neutrophils Percent Auto 90.3 % (45.5-73.1); Platelet Count Result 280 k/mm3 (150-375); Red Blood Count 4.28 M/mm3 (4.2-5.4); Red Cell Distribution Width 14.6 % (11.5-14.5); White Blood Count 8.8 K/mm3 (4.5-10.0)
[2019-07-27 05:13] LABS: Blood Urea Nitrogen 22 mg/dL (7-17); Calcium 8.5 mg/dL (8.4-10.2); Carbon Dioxide 29 mmol/L (22-30); Chloride 103 mmol/L (98-107); Estimated Glomerular Filt Rate > 60; Glucose 135 mg/dL (65-105); Magnesium 2.3 mg/dL (1.6-2.3); Phosphorus 2.5 mg/dL (2.5-4.5); Potassium 3.4 mmol/L (3.4-5.0); Sodium 139 mmol/L (137-145)
[2019-07-27] MEDS: AMLODIPINE BESYLATE 5 MG TABLET 10 MG PO (09:36)
[2019-07-27] MEDS: MORPHINE SULFATE 4 MG/ML INJ IV PUSH (09:36)
[2019-07-27] MEDS: ALPRAZOLAM 0.25 MG TABLET PO (09:36)
[2019-07-27] MEDS: FOLIC ACID 1 MG TABLET PO (09:36)
[2019-07-27] MEDS: ENOXAPARIN 40 MG/0.4 ML SYRINGE SUB-Q (09:36)
--- NOTE | 2019-07-27 10:37 | PCDIET ---
Patient IMU status; consumed 25-50% of meals yesterday and has not been taking Ensure Clear. Currently on breathing mask with reported anxiety. Will follow up with patient 07/28/19, as previously scheduled.
--- NOTE | 2019-07-27 11:43 | WPDINTPN ---
Progress Note: A&P Assessment and Plan (1) Acute and chronic respiratory failure: Qualifiers: Respiratory failure complication: unspecified whether with hypoxia or hypercapnia Qualified Code(s): J96.20 - Acute and chronic respiratory failure, unspecified whether with hypoxia or hypercapnia Code(s): J96.20 - Acute and chronic respiratory failure, unspecified whether with hypoxia or hypercapnia Status: Acute Assessment and Plan: acute on chronic respiratory failure most likely related to pneumonia, COPD exacerbation. PATIENT HAS BEEN COMPLIANT WITH WEARING HER BIPAP - continue azithromycin, ceftriaxone - continue bronchodilators, Solu-Medrol, - continue BiPAP - will recheck ABGs chest x-ray - pulmonology consulted - patient started on Precedex infusion, added Seroquel, patient already on p.r.n. Ativan (2) Pneumonia: Qualifiers: Laterality: bilateral Lung location: lower lobe of lung Pneumonia type: due to unspecified organism Qualified Code(s): J18.9 - Pneumonia, unspecified organism Code(s): J18.9 - Pneumonia, unspecified organism Status: Acute Assessment and Plan: patient with cough, green sputum likely bronchitis/pneumonia - continue antibiotics as above - sputum cultures have been ordered - blood cultures negative x2 from 07/25/2019 (3) Acute exacerbation of chronic obstructive airways disease: Code(s): J44.1 - Chronic obstructive pulmonary disease with (acute) exacerbation Status: Acute Assessment and Plan: continue BiPAP, steroids, antibiotics and bronchodilators (4) Anxiety: Code(s): F41.9 - Anxiety disorder, unspecified Status: Acute Assessment and Plan: patient very anxious, - restarted on Precedex, patient is on p.r.n. Ativan - will add low-dose of Seroquel (5) Elevated troponin: Code(s): R79.89 - Other specified abnormal findings of blood chemistry Status: Acute Assessment and Plan: patient with elevated troponin likely related to severe respiratory distress and acute on chronic respiratory failure - troponins have plateaued and trending down, (6) DVT prophylaxis: Code(s): Z29.9 - Encounter for prophylactic measures, unspecified Status: Acute Assessment and Plan: Lovenox Additional Plan Discussed with patient, her and her daughter and updated them with patient's condition and plan of care. I answered all questions. \ Code status: Full code Critical care time spent: 32 minutes Due to a high probability of clinically significant, life threatening deterioration, the patient required my highest level of preparedness to intervene emergently and I personally spent this critical care time directly and personally managing the patient. This critical care time included obtaining a history; examining the patient; pulse oximetry; ordering and review of studies; arranging urgent treatment with development of a management plan; evaluation of patient's response to treatment; frequent reassessment; and discussions with other providers. It was exclusive of separately billable procedures and treating other patients and teaching time. Please see Assessment and Plan section and the rest of the note for further information on patient assessment and treatment Subjective Date/time seen: 07/27/19 11:43 REASON FOR CONSULT: acute on chronic respiratory failure, COPD exacerbation, cough, pneumonia /bronchitis 07/27/2019: patient was off Precedex on 07/26/2019 and was transferred to IMU status. Last evening patient was anxious, tachycardic in the 160s to 180s, tachypneic, seemed to be in a panic attack state. Patient was given Ativan morphine with mild improvement. This morning. Patient is tachycardic in the 140s, tachypnea. I was reconsulted to start Precedex infusion. Patient seen and examined the ICU later in the morning after being reconsulted. Patient is
[2019-07-27 12:32] LABS: Base Excess ABG 5.4 mEq/l (+/-2.0); Fractional Inspired Oxygen 30 %; HCO3 ABG 31.9 mEq/l (22.0-26.0); Oxygen Content ABG 19.6 %vol (16.0-22.0); Oxygen Saturation ABG 95.6 % (95.0-100.0); Oxyhemoglobin 95.1 % THb (90.0-100.0); PO2 ABG 80.5 mmHg (80.0-100.0); PO2 FiO2 Ratio Arterial Blood 2.68 %; Total Hemoglobin 14.6 g/dL (12.0-18.0); pH ABG 7.389 (7.350-7.450)
[2019-07-27 12:33] LABS: Device NON-INVASIVE VENT; Non-Invasive Expiratory Pressure 5 CMH2O; Non-Invasive Inspiratory Pressure 12 CMH2O; Non-Invasive Vent Rate 4 /MIN; Site Drawn LEFT BRACHIAL
[2019-07-27] MEDS: QUEtiapine FUMARATE 25 MG TABLET PO ×2 (12:43→22:05)
[2019-07-27] MEDS: ALPRAZOLAM 0.5 MG TABLET PO ×2 (12:43→17:06)
--- NOTE | 2019-07-27 13:04 | PM.IMPN ---
Progress Note: A&P Assessment and Plan (1) Elevated troponin: Code(s): R79.89 - Other specified abnormal findings of blood chemistry Status: Acute Assessment and Plan: Likley secondary to respiratory distress (2) Anxiety: Code(s): F41.9 - Anxiety disorder, unspecified Status: Acute Assessment and Plan: Pt restarted on precedex, pt is back to ICU status due to respiratory distress. Restart pts home anxiety medications (3) DVT prophylaxis: Code(s): Z29.9 - Encounter for prophylactic measures, unspecified Status: Acute Assessment and Plan: Lovenox (4) Acute and chronic respiratory failure: Qualifiers: Respiratory failure complication: unspecified whether with hypoxia or hypercapnia Qualified Code(s): J96.20 - Acute and chronic respiratory failure, unspecified whether with hypoxia or hypercapnia Code(s): J96.20 - Acute and chronic respiratory failure, unspecified whether with hypoxia or hypercapnia Status: Acute Assessment and Plan: Secondary to copd excerbation , breathing treatments, Iv steroids and iv rocephin and zithromax Pt is respiratory distress is worse today Pt encouraged to wear her BIPAP mask as tolerated prn Cxr shows emphysema Pt is still smoking (5) Acute exacerbation of chronic obstructive airways disease: Code(s): J44.1 - Chronic obstructive pulmonary disease with (acute) exacerbation Status: Acute Assessment and Plan: Previous admission in 2006 Subjective Date/time seen: 07/27/19 13:04 Interval history: 74-year-old female with a past medical history of COPD, who presented to the ER with shortness of breath for the last 3 days. Admitted with acute on chronic respiratory distress secondary to COPD. Pt is not tolerating the BIPAP encouraged to wear the mask today. Pt getting very anxious when she wears the mask her HR goes up. Anxiety medications increased and precedex restarted. Pt to be watched for further resp distress may need to be intubated if she cannot tolerate the BIPAP mask. Review of Systems Review of Systems: All systems reviewed & are unremarkable except as noted in HPI and below Cardiovascular: Cardiovascular: Denies chest pain, Denies palpitations, Reports dyspnea and Reports dyspnea on exertion Respiratory: Respiratory: Reports chest congestion, Reports cough, Reports dyspnea, Reports dyspnea on exertion and Reports wheezing Psychiatric: Psychiatric: Reports anxiety Endocrine: Endocrine: Denies palpitations Allergic/Immunologic: Allergic/Immunologic: Reports wheezing Exam Narrative: Exam Narrative: Thin appearing, Const: General: in distress Neck: Neck: No no JVD Resp: Auscultation: wheezes and diminished lung sounds (Bilaterally ) Cardio: Rate: tachycardic GI: Auscultation: normal bowel sounds Neuro: Cognition (Neuro): normal cognition Extrem: General: normal to inspection Psych: Affect: Anxious affect present Objective Data Vital Signs Vital Signs: Vital Signs - 24 hr 07/26/19 13:38 07/26/19 13:46 07/26/19 14:00 Temperature Pulse Rate 106 H 104 H 89 Respiratory Rate 29 H 25 H 16 Blood Pressure 122/79 Pulse Oximetry 100 07/26/19 16:00 07/26/19 18:00 07/26/19 19:00 Temperature 36.7 C Pulse Rate 132 H 133 H 141 H Respiratory Rate 20 22 H 32 H Blood Pressure 156/98 H 156/100 H 174/130 H Pulse Oximetry 96 92 95 07/26/19 19:20 07/26/19 19:23 07/26/19 19:33 Temperature Pulse Rate 175 H 175 H 166 H Respiratory Rate 27 H 27 H 30 H Blood Pressure Pulse Oximetry 98 07/26/19 20:00 07/26/19 22:00 07/27/19 00:00 Temperature 37.0 C 36.9 C Pulse Rate 152 H 117 H 112 H Respiratory Rate 30 H 16 17 Blood Pressure 129/114 H 116/75 115/83 Pulse Oximetry 98 96 98 07/27/19 01:37 07/27/19 01:47 07/27/19 02:00 Temperature Pulse Rate 130 H 124 H 130 H Respiratory Rate 28 H 28 H 28 H Blood Pressure 141/106
--- NOTE | 2019-07-27 19:26 | P.PCNBED_ITS ---
Procedures Central Line Placement: Right Femoral: Discussed w/ patient and/or surrogate, the non-emergent placement of a central venous catheter, including its clinical necessity/indication & associated potential risks & complications.: Yes (I have discussed with the patient and/or surrogate) The patient and/or surrogate understand(s) and acknowledge(s) the need to proceed with central venous catheter insertion as an important element of the patient's clinical management.: Yes (I have discussed with the patient and/or surrogate) Emergently Placed - (Given emergent patient conditions, temporal constraints may not have permitted and aforementioned informed consent.): No Consent: Impressions Chest X-Ray 07/27/19 12:14 IMPRESSION: 1. Mild atelectasis in the lower lung zones. 2. Emphysema. Central Line Date: 07/27/19 Central Line Time: 19:00 Pre-procedural Time-Out was completed immediately before starting the procedure and confirmed: Patient Identification, Site, Procedure, Patient Position and the Availability of Requisite Equipment.: Yes Patient Position: supine Patient placed on monitor/pulse ox: Yes Provider Prep: mask, sterile gown, sterile gloves, Max. sterile barrier precaut ions, cap and hand hygiene Central line prep: Povidone-Iodine 1% and sterile full body sheet applied Local anesthesia used: lidocaine 2% Amount of anesthesia used (ml): 3 Ultrasound used for placement: Yes Central line lumen inserted: triple Faroese: 7 Length (cm): 16 Depth of Insertion (cm): 15 Post procedure: sutured in place, good blood return and all ports aspirated, flushed, capped Post procedure x-ray: other (no x ray needed) Patient tolerated procedure: well Complications: none
[2019-07-28] VITALS (24 sets, daily range): BP systolic 101–154; BP diastolic 71–118; PULSE 72–125; RESP 17–26; TEMP 36.2–36.7; O2SAT 90–97
[2019-07-28] MEDS: methylPREDNISolone SOD SUCC 125 MG VIAL 60 MG IV PUSH ×4 (00:15→16:58)
[2019-07-28] MEDS: IPRATROPIUM BR 0.02% INH SOLN 0.5 MG/2.5 ML VIAL INHALATION ×4 (03:40→19:46)
[2019-07-28 05:20] LABS: Hematocrit 39.3 % (37.0-47.0); Hemoglobin 12.8 g/dL (12.0-15.0); Immature Granulocyte Absolute 0.03 K/mm3 (0.00-0.031); Immature Granulocyte Percent A 0.4 % (0-0.5); Lymphocytes Absolute Auto 0.44 K/mm3 (0.9-3.2); Mean Corpuscular HGB Conc 32.6 g/dl (32-36); Mean Corpuscular Hemoglobin 29.3 pg (26-34); Mean Corpuscular Volume 89.9 fl (80-100); Mean Platelet Volume 9.6 fl (7.4-10.4); Monocytes Absolute Auto 0.4 K/mm3 (0.1-0.6); Monocytes Percent Auto 5.3 % (2.6-8.5); Neutrophils Absolute Auto 6.4 K/mm3 (1.3-6.7); Neutrophils Percent Auto 88.3 % (45.5-73.1); Platelet Count Result 281 k/mm3 (150-375); Red Blood Count 4.37 M/mm3 (4.2-5.4); Red Cell Distribution Width 14.2 % (11.5-14.5); White Blood Count 7.3 K/mm3 (4.5-10.0)
[2019-07-28 05:37] LABS: Alveolar/Arterial O2 Gradient 115.5 mmHg; Base Excess ABG 7.9 mEq/l (+/-2.0); Carboxyhemoglobin 0.1 % THb (0-2.0); Fractional Inspired Oxygen 35 %; HCO3 ABG 31.7 mEq/l (22.0-26.0); Methemoglobin ABG 0.3 %THb (0-1.5); Modified Allen's Test Pass; Oxygen Content ABG 19.1 %vol (16.0-22.0); Oxygen Saturation ABG 97.2 % (95.0-100.0); Oxyhemoglobin 96.3 % THb (90.0-100.0); PCO2 ABG 41.2 mmHg (35.0-45.0); PO2 ABG 86.2 mmHg (80.0-100.0); PO2 FiO2 Ratio Arterial Blood 2.46 %; Reduced Hemoglobin 3.3 %THb (0-5.0); Site Drawn LEFT RADIAL; Total Hemoglobin 14.1 g/dL (12.0-18.0); pH ABG 7.504 (7.350-7.450)
[2019-07-28 05:37] LABS: Blood Urea Nitrogen 20 mg/dL (7-17); Calcium 8.2 mg/dL (8.4-10.2); Carbon Dioxide 34 mmol/L (22-30); Chloride 98 mmol/L (98-107); Estimated Glomerular Filt Rate > 60; Glucose 138 mg/dL (65-105); Magnesium 2.2 mg/dL (1.6-2.3); Phosphorus 1.9 mg/dL (2.5-4.5); Sodium 138 mmol/L (137-145)
[2019-07-28 05:38] LABS: Device NON-INVASIVE VENT
[2019-07-28 05:39] LABS: Non-Invasive Expiratory Pressure 5 CMH2O; Non-Invasive Inspiratory Pressure 12 CMH2O; Non-Invasive Vent Rate 4 /MIN
--- NOTE | 2019-07-28 06:38 | P.CDI_ITS ---
CDI Query Clarification Request -Dr Vizcaino has documented Pneumonia. -Grisel documented, Acute bronchospasm and tachycardia in a patient currently being treated for pneumonia, acute on chronic respiratory failure, and COPD exacerbation. - Pt is on Ceftriaxone and Zithromax -You don't mention pneumonia. Please clarify if pneumonia has been ruled in or ruled out. <Tamra Mercado RN - Last Filed: 07/28/19 06:42> Clarified Diagnosis (1) Acute exacerbation of chronic obstructive airways disease: Code(s): J44.1 - Chronic obstructive pulmonary disease with (acute) exac erbation <Tamra Mercado RN - Last Filed: 07/28/19 06:42> Status: Acute <Tamra Mercado RN - Last Filed: 07/28/19 06:42> Assessment and Plan: Acute on chronic respiratory failure, secondary to COPD exacerbati on. CXR did not show pneumonia <Natacha Dumont MD - Last Filed: 07/28/19 15:45>
[2019-07-28] MEDS: POTASSIUM PHOS,M-BASIC-D-BASIC 20 MMOL in SODIUM CHLORIDE 0.9% IV 250 ML 62.5 MMOL IVPB (08:22)
[2019-07-28] MEDS: ENOXAPARIN 40 MG/0.4 ML SYRINGE SUB-Q (08:37)
[2019-07-28] MEDS: FOLIC ACID 1 MG TABLET PO (08:37)
[2019-07-28] MEDS: AMLODIPINE BESYLATE 5 MG TABLET 10 MG PO (08:37)
[2019-07-28] MEDS: POTASSIUM CHLORIDE 20 MEQ TABLET 40 MEQ PO (08:37)
[2019-07-28] MEDS: ALPRAZOLAM 0.5 MG TABLET PO ×2 (08:37→13:10)
[2019-07-28] MEDS: QUEtiapine FUMARATE 25 MG TABLET PO ×2 (08:37→19:52)
[2019-07-28] MEDS: QUEtiapine FUMARATE 12.5 MG TABLET PO ×2 (08:38→19:52)
--- NOTE | 2019-07-28 09:37 | WPDINTPN ---
Progress Note: A&P Assessment and Plan (1) Acute and chronic respiratory failure: Qualifiers: Respiratory failure complication: unspecified whether with hypoxia or hypercapnia Qualified Code(s): J96.20 - Acute and chronic respiratory failure, unspecified whether with hypoxia or hypercapnia Code(s): J96.20 - Acute and chronic respiratory failure, unspecified whether with hypoxia or hypercapnia Status: Acute Assessment and Plan: acute on chronic respiratory failure likely related to pneumonia, COPD exacerbation, bronchitis. PATIENT HAS BEEN COMPLIANT WITH WEARING HER BIPAP - continue azithromycin, ceftriaxone for total of 5 days - continue bronchodilators, Solu-Medrol, - continue BiPAP when patient to sleep and during the day as needed - ABGs and chest x-ray reviewed - pulmonology consulted - patient started on Precedex infusion and Seroquel, - patient was placed on scheduled Xanax (2) Pneumonia: Qualifiers: Laterality: bilateral Lung location: lower lobe of lung Pneumonia type: due to unspecified organism Qualified Code(s): J18.9 - Pneumonia, unspecified organism Code(s): J18.9 - Pneumonia, unspecified organism Status: Acute Assessment and Plan: patient with cough, green sputum likely bronchitis/pneumonia - continue antibiotics as above - sputum cultures have been ordered - blood cultures negative x2 from 07/25/2019 (3) Acute exacerbation of chronic obstructive airways disease: Code(s): J44.1 - Chronic obstructive pulmonary disease with (acute) exacerbation Status: Acute Assessment and Plan: continue BiPAP, steroids, antibiotics and bronchodilators (4) Anxiety: Code(s): F41.9 - Anxiety disorder, unspecified Status: Acute Assessment and Plan: patient very anxious, - continue Seroquel and Xanax - wean Precedex gradually (5) Elevated troponin: Code(s): R79.89 - Other specified abnormal findings of blood chemistry Status: Acute Assessment and Plan: patient with elevated troponin likely related to severe respiratory distress and acute on chronic respiratory failure - troponins have plateaued and trending down, (6) DVT prophylaxis: Code(s): Z29.9 - Encounter for prophylactic measures, unspecified Status: Acute Assessment and Plan: Lovenox Additional Plan Discussed with patient, her and updated them with patient's condition and plan of care. I answered all questions. Code status: Full code Critical care time spent: 33 minutes Due to a high probability of clinically significant, life threatening deterioration, the patient required my highest level of preparedness to intervene emergently and I personally spent this critical care time directly and personally managing the patient. This critical care time included obtaining a history; examining the patient; pulse oximetry; ordering and review of studies; arranging urgent treatment with development of a management plan; evaluation of patient's response to treatment; frequent reassessment; and discussions with other providers. It was exclusive of separately billable procedures and treating other patients and teaching time. Please see Assessment and Plan section and the rest of the note for further information on patient assessment and treatment Subjective Date/time seen: 07/28/19 09:37 REASON FOR CONSULT: acute on chronic respiratory failure, COPD exacerbation, cough, pneumonia /bronchitis 07/28/2019: patient seen and examined in the ICU this morning. Is awake, alert, slightly confused but knows she is at the hospital. Patient follows simple commands. Patient states she has forgotten what to place between last night and this morning. Remains tachycardic 120s blood pressures have been stable. Patient on Precedex infusion at 0.3 mcg. States she continues to have some difficulty breathing from time to t
--- NOTE | 2019-07-28 10:41 | PCDIET ---
Nutrition Follow-Up Complete: Nutrition Diagnosis: Inadequate oral intake related to decreased appetite as evidenced by patient/spouse statements, reported weight loss, apparent wasting. Nutrition Goals: Intakes >50%, supplement acceptance Goal not met. Patient did not eat yesterday due to breathing difficulty, but now has breakfast tray and feels ready to eat. Has not yet tried Ensure Clear but would like to give it a try. Reviewed higher kcal/protein supplements available; patient only agreeable to try Thrive Ice Cream (270kcal, 9g protein). Recommend continuing regular diet with Ensure Clear (240kcal, 8g protein) and adding Thrive Ice Cream BID. Last recorded weight is 44.4 kg which is increased from admission. Bowel Motility: No documented bowel movement. Labs Reviewed: BUN (20), Cr (0.6), K (3.0), PO4 (1.9) Meds Noted: Rocephin, Precedex, Folic Acid, Methotrexate, Solu Medrol, K-Phos Additional Notes: s/p KCl. No documented skin breakdown. Will continue to monitor with same goals. Nutrition Monitoring and Evaluation: Follow up in 3 days.
[2019-07-28] MEDS: LIDOCAINE HCL 1% PF INJ 5 ML VIAL INFILTRATE (11:45)
[2019-07-28] MEDS: MORPHINE SULFATE 4 MG/ML INJ IV PUSH (11:48)
--- NOTE | 2019-07-28 14:59 | PM.IMPN ---
Progress Note: A&P Assessment and Plan (1) Elevated troponin: Code(s): R79.89 - Other specified abnormal findings of blood chemistry Status: Acute Assessment and Plan: Likley secondary to respiratory distress (2) Anxiety: Code(s): F41.9 - Anxiety disorder, unspecified Status: Acute Assessment and Plan: Pt restarted on precedex, pt is back to ICU status due to respiratory distress. Restart pts home anxiety medications (3) DVT prophylaxis: Code(s): Z29.9 - Encounter for prophylactic measures, unspecified Status: Acute Assessment and Plan: Lovenox (4) Acute and chronic respiratory failure: Qualifiers: Respiratory failure complication: unspecified whether with hypoxia or hypercapnia Qualified Code(s): J96.20 - Acute and chronic respiratory failure, unspecified whether with hypoxia or hypercapnia Code(s): J96.20 - Acute and chronic respiratory failure, unspecified whether with hypoxia or hypercapnia Status: Acute Assessment and Plan: Secondary to copd excerbation, breathing treatments, Iv steroids and iv rocephin and zithromax Pt is respiratory distress is ongoing Pt encouraged to wear her BIPAP mask as tolerated prn Cxr shows emphysema Pt is still smoking CXR daily and ABG daily (5) Acute exacerbation of chronic obstructive airways disease: Code(s): J44.1 - Chronic obstructive pulmonary disease with (acute) exacerbation Status: Acute Assessment and Plan: Previous admission in 2006 (6) Sinus tachycardia: Code(s): R00.0 - Tachycardia, unspecified Status: Acute Assessment and Plan: Likely secondary to anxiety and hypoxia (7) Acute hypokalemia: Code(s): E87.6 - Hypokalemia Status: Acute Assessment and Plan: Continue to watch, pt had potassium supplements and potassium rider Subjective Date/time seen: 07/28/19 14:59 Interval history: 74-year-old female with a past medical history of COPD, who presented to the ER with shortness of breath for the last 3 days. Admitted with acute on chronic respiratory distress secondary to COPD. Pt getting very anxious HR is 120-130s today. Precedex restarted. Pt to be watched for further respiratory distress, awaiting improvement in her HR. Review of Systems Review of Systems: All systems reviewed & are unremarkable except as noted in HPI and below Cardiovascular: Cardiovascular: Denies chest pain, Denies palpitations, Reports dyspnea and Reports dyspnea on exertion Respiratory: Respiratory: Reports chest congestion, Reports cough, Reports dyspnea, Reports dyspnea on exertion and Reports wheezing Psychiatric: Psychiatric: Reports anxiety Endocrine: Endocrine: Denies palpitations Allergic/Immunologic: Allergic/Immunologic: Reports wheezing Exam Narrative: Exam Narrative: Thin appearing, thin, emphysematous Const: General: in distress Neck: Neck: No no JVD Resp: Auscultation: wheezes and diminished lung sounds (Bilaterally ) Cardio: Rate: tachycardic GI: Auscultation: normal bowel sounds Neuro: Cognition (Neuro): normal cognition Extrem: General: normal to inspection Psych: Affect: Anxious affect present Objective Data Vital Signs Vital Signs: Vital Signs - 24 hr 07/27/19 16:00 07/27/19 16:01 07/27/19 17:10 Temperature 36.1 C L Pulse Rate 80 82 79 Respiratory Rate 19 18 Blood Pressure 102/74 Pulse Oximetry 91 93 07/27/19 18:00 07/27/19 18:01 07/27/19 20:00 Temperature 36.1 C L Pulse Rate 69 69 79 Respiratory Rate 18 22 H Blood Pressure 124/80 115/81 Pulse Oximetry 94 93 07/27/19 20:55 07/27/19 21:05 07/27/19 22:00 Temperature Pulse Rate 78 73 117 H Respiratory Rate 19 20 Blood Pressure Pulse Oximetry 91 07/27/19 22:30 07/28/19 00:00 07/28/19 02:00 Temperature 36.6 C Pulse Rate 96 81 78 Respiratory Rate 21 H 21 H 18 Blood Pressure 115/82 101/71 125
[2019-07-28] MEDS: ALPRAZOLAM 0.5 MG TABLET 1 MG PO (16:58)
[2019-07-28] MEDS: METOPROLOL TARTRATE 12.5 MG TABLET PO (19:52)
[2019-07-28] MEDS: TRAMADOL HCL 50 MG TABLET PO (21:43)
--- NOTE | 2019-07-28 22:00 | PC.NURSE ---
This RN at bedside to check on patient. Pt upset and states that other nurse who responded to call light looked at her like a drug addict when she asked for pain medication. Pt is crying at this time and states that they were giving me morphine like candy this whole time and that the tramadol that was given to her for her pain will not help. Explained that if the tramadol does not help that we can try stronger pain meds and offered to get patient a heating pad. Pt emotional but calmed down and thanked this RN for listening and helping her.
[2019-07-28] MEDS: LORAZEPAM INJ 2 MG/ML VIAL 1 MG IV PUSH (22:11)
[2019-07-29] VITALS (27 sets, daily range): BP systolic 115–159; BP diastolic 78–110; PULSE 61–122; RESP 14–27; TEMP 36.3–36.8; O2SAT 92–98
[2019-07-29] MEDS: methylPREDNISolone SOD SUCC 125 MG VIAL 60 MG IV PUSH ×4 (00:07→18:18)
--- NOTE | 2019-07-29 00:17 | PC.NURSE ---
This RN went to pt bedside to put patient on bipap. Pt asked earlier that we wait since she wanted to stay up later and watch some tv. Patient asks for ice water so that she can lift up bipap mask and sip ice water through a straw. This RN explained to pt that this is inappropriate and can put pt at high risk for aspiration and can also break the seal on pt's bipap. Asked that pt call when she needs a break and this RN will come to bedside to assist her with getting a drink of water. Pt became irate immediately and claims that her RN last night allowed her to do this as well and that the doctor told her she could as well. This RN was her nurse last night and did not allow this. Pt became increasingly agitated and intentionally threw trash on the floor and when asked not to throw trash on the floor states I'm sorry if you don't like your job.
[2019-07-29] MEDS: IPRATROPIUM BR 0.02% INH SOLN 0.5 MG/2.5 ML VIAL INHALATION ×4 (01:51→20:35)
[2019-07-29 04:42] LABS: Hematocrit 36.4 % (37.0-47.0); Hemoglobin 11.9 g/dL (12.0-15.0); Mean Corpuscular HGB Conc 32.7 g/dl (32-36); Mean Corpuscular Hemoglobin 29.8 pg (26-34); Mean Platelet Volume 9.4 fl (7.4-10.4); Platelet Count Result 232 k/mm3 (150-375); Red Cell Distribution Width 14.5 % (11.5-14.5)
[2019-07-29 05:16] LABS: Blood Urea Nitrogen 22 mg/dL (7-17); Calcium 7.6 mg/dL (8.4-10.2); Carbon Dioxide 34 mmol/L (22-30); Chloride 100 mmol/L (98-107); Estimated Glomerular Filt Rate > 60; Glucose 177 mg/dL (65-105); Potassium 4.3 mmol/L (3.4-5.0); Sodium 138 mmol/L (137-145)
[2019-07-29] MEDS: ALPRAZOLAM 0.5 MG TABLET 1 MG PO (08:00)
[2019-07-29] MEDS: QUEtiapine FUMARATE 25 MG TABLET 50 MG PO (08:00)
[2019-07-29] MEDS: AMLODIPINE BESYLATE 5 MG TABLET 10 MG PO (08:02)
[2019-07-29] MEDS: ENOXAPARIN 40 MG/0.4 ML SYRINGE SUB-Q (08:03)
[2019-07-29] MEDS: METOPROLOL TARTRATE 12.5 MG TABLET PO ×2 (08:03→20:56)
[2019-07-29] MEDS: FOLIC ACID 1 MG TABLET PO (08:04)
[2019-07-29 08:13] LABS: Blood Urea Nitrogen 22 mg/dL (7-17); Carbon Dioxide 35 mmol/L (22-30); Chloride 99 mmol/L (98-107); Estimated Glomerular Filt Rate > 60; Glucose 151 mg/dL (65-105); Potassium 4.1 mmol/L (3.4-5.0); Sodium 138 mmol/L (137-145)
[2019-07-29 08:20] LABS: Alveolar/Arterial O2 Gradient 147.9 mmHg; Base Excess ABG 5.4 mEq/l (+/-2.0); Carboxyhemoglobin 0.2 % THb (0-2.0); Device NASAL CANNULA; Fractional Inspired Oxygen 36 %; HCO3 ABG 29.1 mEq/l (22.0-26.0); Methemoglobin ABG 0.3 %THb (0-1.5); Modified Allen's Test Pass; Oxygen Content ABG 18.8 %vol (16.0-22.0); Oxygen Saturation ABG 93.7 % (95.0-100.0); Oxyhemoglobin 92.7 % THb (90.0-100.0); PCO2 ABG 39.4 mmHg (35.0-45.0); PO2 ABG 63.1 mmHg (80.0-100.0); PO2 FiO2 Ratio Arterial Blood 1.75 %; Reduced Hemoglobin 6.8 %THb (0-5.0); Site Drawn RIGHT RADIAL; Total Hemoglobin 14.4 g/dL (12.0-18.0); pH ABG 7.486 (7.350-7.450)
--- NOTE | 2019-07-29 09:57 | WPDINTPN ---
Progress Note: A&P Assessment and Plan (1) Acute and chronic respiratory failure: Qualifiers: Respiratory failure complication: unspecified whether with hypoxia or hypercapnia Qualified Code(s): J96.20 - Acute and chronic respiratory failure, unspecified whether with hypoxia or hypercapnia Code(s): J96.20 - Acute and chronic respiratory failure, unspecified whether with hypoxia or hypercapnia Status: Acute Assessment and Plan: acute on chronic respiratory failure likely related to pneumonia, COPD exacerbation, bronchitis. PATIENT HAS BEEN COMPLIANT WITH WEARING HER BIPAP - continue azithromycin, ceftriaxone stop antibiotics - continue bronchodilators, Solu-Medrol, - continue BiPAP when patient to sleep and during the day as needed - ABGs and chest x-ray reviewed - pulmonology consulted, await evaluation and recommendation - Seroquel does decreased - will decrease Xanax to 0.5 mg Q 8 hours scheduled - OFF PRECEDEX INFUSION (2) Pneumonia: Qualifiers: Laterality: bilateral Lung location: lower lobe of lung Pneumonia type: due to unspecified organism Qualified Code(s): J18.9 - Pneumonia, unspecified organism Code(s): J18.9 - Pneumonia, unspecified organism Status: Acute Assessment and Plan: patient with cough, green sputum likely bronchitis/pneumonia - antibiotics stopped on 07/29/2019 - sputum cultures have been ordered and pending - blood cultures negative x2 from 07/25/2019 (3) Acute exacerbation of chronic obstructive airways disease: Code(s): J44.1 - Chronic obstructive pulmonary disease with (acute) exacerbation Status: Acute Assessment and Plan: continue BiPAP, steroids, and bronchodilators (4) Anxiety: Code(s): F41.9 - Anxiety disorder, unspecified Status: Acute Assessment and Plan: patient very anxious, - continue Seroquel and Xanax, will will reduce dosage of both medication - off Precedex infusion (5) Elevated troponin: Code(s): R79.89 - Other specified abnormal findings of blood chemistry Status: Acute Assessment and Plan: patient with elevated troponin likely related to severe respiratory distress and acute on chronic respiratory failure - troponins have plateaued and trending down, (6) DVT prophylaxis: Code(s): Z29.9 - Encounter for prophylactic measures, unspecified Status: Acute Assessment and Plan: Lovenox Additional Plan Discussed with patient, her and updated them with patient's condition and plan of care. I answered all questions. Code status: Full code Critical care time spent: 31 minutes Due to a high probability of clinically significant, life threatening deterioration, the patient required my highest level of preparedness to intervene emergently and I personally spent this critical care time directly and personally managing the patient. This critical care time included obtaining a history; examining the patient; pulse oximetry; ordering and review of studies; arranging urgent treatment with development of a management plan; evaluation of patient's response to treatment; frequent reassessment; and discussions with other providers. It was exclusive of separately billable procedures and treating other patients and teaching time. Please see Assessment and Plan section and the rest of the note for further information on patient assessment and treatment Subjective Date/time seen: 07/29/19 09:57 REASON FOR CONSULT: acute on chronic respiratory failure, COPD exacerbation, cough, pneumonia /bronchitis 07/29/2019: patient seen and examined in the ICU this morning. Is awake, alert, More coherent this morning. Less tachycardic, on 4 L nasal cannula with good O2 sats, She did wear her BiPAP overnight. OFF Precedex infusion. Hemodynamically stable, adequate urine output. Review of Systems Review of Systems: Jas
[2019-07-29] MEDS: ALPRAZOLAM 0.5 MG TABLET PO ×2 (14:19→20:56)
--- NOTE | 2019-07-29 16:28 | PM.IMPN ---
Progress Note: A&P Assessment and Plan (1) Acute exacerbation of chronic obstructive airways disease: Code(s): J44.1 - Chronic obstructive pulmonary disease with (acute) exacerbation Status: Acute Assessment and Plan: Acute on chronic respiratory failure, secondary to COPD exacerbation. CXR did not show pneumonia Additional Plan Assessment and Plan (1) Elevated troponin: Code(s): R79.89 - Other specified abnormal findings of blood chemistry Status: Acute Assessment and Plan: Likely secondary to respiratory distress (2) Anxiety: Code(s): F41.9 - Anxiety disorder, unspecified Status: Acute Assessment and Plan: Continue anxiety medications. Add metoprolol orally to bring down HR (3) DVT prophylaxis: Code(s): Z29.9 - Encounter for prophylactic measures, unspecified Status: Acute Assessment and Plan: Lovenox (4) Acute and chronic respiratory failure: Qualifiers: Respiratory failure complication: unspecified whether with hypoxia or hypercapnia Qualified Code(s): J96.20 - Acute and chronic respiratory failure, unspecified whether with hypoxia or hypercapnia Code(s): J96.20 - Acute and chronic respiratory failure, unspecified whether with hypoxia or hypercapnia Status: Acute Assessment and Plan: Secondary to copd excerbation, breathing treatments, Iv steroids and iv rocephin and zithromax Pt is respiratory distress is ongoing Pt encouraged to wear her BIPAP mask as tolerated prn Cxr shows emphysema Pt is still smoking CXR daily and ABG daily (5) Acute exacerbation of chronic obstructive airways disease: Code(s): J44.1 - Chronic obstructive pulmonary disease with (acute) exacerbation Status: Acute Assessment and Plan: Previous admission in 2006 (6) Sinus tachycardia: Code(s): R00.0 - Tachycardia, unspecified Status: Acute Assessment and Plan: Likely secondary to anxiety and hypoxia (7) Acute hypokalemia: Code(s): E87.6 - Hypokalemia Resolved Subjective Date/time seen: 07/29/19 16:28 Interval history: 74-year-old female with a past medical history of COPD, who presented to the ER with shortness of breath for the last 3 days. Admitted with acute on chronic respiratory distress secondary to COPD. Pt getting very anxious HR is 118 today. Bp is high 150/101. Pt had panic attack yesterday had to have anxoltyics and seroquel. Pt is off precedex HR and Bp raising up continue to watch in ICU increase dose of metoprolol Review of Systems Review of Systems: All systems reviewed & are unremarkable except as noted in HPI and below Cardiovascular: Cardiovascular: Denies chest pain, Denies palpitations, Reports dyspnea and Reports dyspnea on exertion Respiratory: Respiratory: Reports chest congestion, Reports cough, Reports dyspnea, Reports dyspnea on exertion and Reports wheezing Psychiatric: Psychiatric: Reports anxiety Endocrine: Endocrine: Denies palpitations Allergic/Immunologic: Allergic/Immunologic: Reports wheezing Exam Narrative: Exam Narrative: Thin appearing, thin, emphysematous Const: General: in distress Neck: Neck: No no JVD Resp: Auscultation: wheezes and diminished lung sounds (Bilaterally ) Cardio: Rate: tachycardic GI: Auscultation: normal bowel sounds Neuro: Cognition (Neuro): normal cognition Extrem: General: normal to inspection Psych: Affect: Anxious affect present Objective Data Vital Signs Vital Signs: Vital Signs - 24 hr 07/28/19 18:00 07/28/19 19:46 07/28/19 19:52 Temperature Pulse Rate 112 H 119 H 112 H Respiratory Rate 23 H 20 Blood Pressure 141/81 H Pulse Oximetry 94 07/28/19 19:53 07/28/19 20:00 07/28/19 22:00 Temperature 36.7 C Pulse Rate 118 H 118 H 104 H Respiratory Rate 20 26 H 18 Blood Pressure 146/104 H 154/113 H Pulse Oximetry 96 93 07/28/19 22:45 07/29/19 00:00 07/29/19 01:51 Jazzy
[2019-07-29] MEDS: METOPROLOL TARTRATE 25 MG TABLET PO (17:13)
[2019-07-29] MEDS: SODIUM CHLORIDE 0.9% IV 1,000 ML 75 ML IV CONT (18:18)
[2019-07-29] MEDS: TRAMADOL HCL 50 MG TABLET PO (18:20)
--- NOTE | 2019-07-29 20:49 | PM.PNPUL ---
Subjective Date/time seen: 07/29/19 20:49 Please see dictation#[id number]. Thank you for the consultation. 1. COPD exacerbation 2. Acute hypoxemic resp failure now on 4 L/min, none at home 2. history tobacco none x 15 years 3. 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 *Check HRCT for possible signs of pneumonia that cannot be seen on plain CXR, as well as RA-related lung changes or side effects from mtx/hydroxychloriquine. RA can be associated with opportunistic infections. *Will check an echo for possible cardiac dysfunction that may be contributing to this prolonged episode of hypoxemia. She is taking a while to improve, which may be normal for her, or may be due to something else in addition to her COPD. Objective Data Vital Signs Vital Signs: Vital Signs - 24 hr 07/28/19 22:00 07/28/19 22:45 07/29/19 00:00 Temperature 36.8 C Pulse Rate 104 H 72 112 H Respiratory Rate 18 20 21 H Blood Pressure 154/113 H 148/110 H Pulse Oximetry 93 93 92 07/29/19 01:51 07/29/19 01:57 07/29/19 01:59 Temperature Pulse Rate 88 77 86 Respiratory Rate 20 22 H 20 Blood Pressure Pulse Oximetry 94 07/29/19 02:00 07/29/19 04:00 07/29/19 05:55 Temperature 36.5 C Pulse Rate 72 66 62 Respiratory Rate 21 H 20 Blood Pressure 115/78 120/83 Pulse Oximetry 92 93 07/29/19 06:00 07/29/19 08:00 07/29/19 08:03 Temperature 36.3 C L Pulse Rate 61 80 82 Respiratory Rate 16 21 H Blood Pressure 139/94 H 135/92 H Pulse Oximetry 94 93 07/29/19 08:35 07/29/19 08:45 07/29/19 10:00 Temperature Pulse Rate 73 75 88 Respiratory Rate 20 20 21 H Blood Pressure 119/84 Pulse Oximetry 92 92 07/29/19 12:00 07/29/19 13:40 07/29/19 13:50 Temperature 36.5 C Pulse Rate 89 95 93 Respiratory Rate 17 20 20 Blood Pressure 131/87 Pulse Oximetry 95 07/29/19 14:00 07/29/19 15:56 07/29/19 16:00 Temperature 36.8 C Pulse Rate 103 H 118 H Respiratory Rate 24 H 27 H Blood Pressure 140/89 150/101 H Pulse Oximetry 93 94 94 07/29/19 17:13 07/29/19 18:00 07/29/19 20:00 Temperature 36.6 C Pulse Rate 122 H 91 110 H Respiratory Rate 14 18 Blood Pressure 159/96 H 147/92 H Pulse Oximetry 96 94 07/29/19 20:36 Temperature Pulse Rate 99 Respiratory Rate 20 Blood Pressure Pulse Oximetry 96 Intake/Output Intake/Output: Intake & Output 07/26/19 07/27/19 07/28/19 07/29/19 23:59 23:59 23:59 23:59 Intake Total 1975 814.2 1645.8 960 Output Total 952 1450 2350 1325 Balance 1023 -635.8 -704.2 -365 Meds/Results Medications: Active Medications Generic Name Dose Route Start Last Admin Trade Name Freq PRN Reason Stop Dose Admin Alprazolam 0.5 mg 07/29/19 10:15 07/29/19 14:19 Xanax PO 0.5 mg Q8HR NATALIE Administration Amlodipine Besylate 10 mg 07/27/19 09:00 07/29/19 08:02 Norvasc PO 10 mg DAILY NATALIE Administration Folic Acid 1 mg 07/27/19 09:00 07/29/19 08:04 Folic Acid PO 1 mg DAILY NATALIE Administration Sodium Chloride 1,000 mls @ 75 mls/hr 07/29/19 17:40 07/29/19 18:18 Normal Saline Iv IV CONT 75 mls/hr .[id number] NATALIE Administration Ipratropium [place] 0.5 mg 07/25/19 08:00 07/29/19 20:35 Atrovent Neb INHALATION 0.5 mg Q6HRT NATALIE Administration Levalbuterol HCl 1.25 mg 07/27/19 02:00 07/29/19 20:35 Xopenex 1.25 Mg/0.5 Ml INHALATION 1.25 mg Q6HRT NATALIE Administration Lorazepam 1 mg 07/26/19 21:34 07/28/19 22:11 Ativan Inj IV PUSH 1 mg Q6H PRN Administration Anxiety Methotrexate 7.5 mg 07/26/19 09:00 07/26/19 11:51 Methotrexate Tab (*Chemo) PO Not Given We@0900 NATALIE Methylprednisolone Sodium Succinate 60 mg 07/26/19 12:00 07/29/19 18:18 Solu-Medrol IV PUSH 60 mg Q6HR NATALIE Administration Metoprolol Tartrate 12.5 mg 07/28/19 21:00 07/29/19 08:03 Lopressor PO 12.5
[2019-07-29] MEDS: QUEtiapine FUMARATE 25 MG TABLET PO (20:56)
[2019-07-29] MEDS: MORPHINE SULFATE 4 MG/ML INJ IV PUSH (23:29)
--- NOTE | 2019-07-29 23:58 | PC.NURSE ---
I went into Pamela's room at approximately 2330 on 07/29/19 to check on her and bring her mouth swabs because she had expressed earlier that the bipap was making her mouth extra dry. When I got into her room she started crying and yelling at me that her mask was digging into her face so I told her I would go grab some padding and be right back. I came back to her room with some foam pads to put under the mask to keep it from digging into her skin but she again was crying and yelling and cursing at me and she ripped the mask off her face. She said I would like to see you all take a walk in my shoes and lay in this bed in pain and have no one try to help you. You're making me wear this thing and it's cutting into my face and my mouth is so dry I'm gagging. This is the most cruel thing anyone has ever done to me. She again started crying hysterically and cursing at me so I told her that I would leave the mouth swabs for her and we could just wear the nasal cannula for a little bit instead of the bipap. She kept saying she wanted to talk to the doctor in the morning about all of this even though Dr. Reyes was in her room about an hour before this started and she said she was not going to wear that bipap anymore tonight. I told her that's fine and that she has the right to refuse and I would just pass it along to the doctor in the morning, and then all of a sudden her whole attitude changed and she again began crying and saying she would wear the bipap and she's so sorry and she told me she didn't want me to get in trouble by anyone for her not doing what she is supposed to. I suggested that we just take a break from the bipap and stay on the nasal cannula and maybe try the mask again in a little while. She was ok with this solution and she is now laying in bed quietly on 4L NC.
[2019-07-30] VITALS (26 sets, daily range): BP systolic 127–160; BP diastolic 69–108; PULSE 75–137; RESP 11–23; TEMP 36.7–36.9; O2SAT 93–97
--- NOTE | 2019-07-30 00:30 | CONS_ITS ---
DATE OF CONSULTATION: 07/29/2019 REASON FOR CONSULTATION: Dr. Vizcaino consulted me to see the patient for hypoxemic respiratory failure, severe COPD. HISTORY: This is a charming 74-year-old woman, who is in ICU bed 6, and her , Vargas, is at the bedside. She was admitted on July 25 with at least 3 days of increasing shortness of breath, increased purulent sputum production with failure to respond to outpatient prednisone taper and amoxicillin. She is followed by the Pulmonary group at [facility]. The patient is very cautious to avoid taking excessive antibiotics. Her last COPD exacerbation was in 2006, She has not had antibiotics for many years. She does not use oxygen at home. Her COPD regimen includes Symbicort, Spiriva and p.r.n. albuterol. At 1 point in the past, she was on Combivent. She described having a low-grade fever at home below 100 degrees, no sore throat, nasal congestion, earache, nausea, vomiting, diarrhea or abdominal pain. Around the holidays, she and her were around 6 grand children, who were below the age of 55 years old. None of them were obviously sick. As soon as she began developing symptoms, she went ahead and started the prednisone taper with the amoxicillin, but even after 3 days, her symptoms were worsening. When she arrived in the emergency department saturation was 76% on room air, she required 5 L/minute nasal cannula to improve the saturation to 93%. Overall, she says that she has been doing well with her chronic obstructive pulmonary disease and it sounds like that accurate. She does not use a nebulizer at home. Never been intubated. Chest x-ray showed atelectasis in the bases and hyperinflation. She has had several x-rays and none of them have showed an infiltrate. Her initial white blood cell count was elevated at 12.3 thousand and she had some erythrocytosis. Hemoglobin was 16 and hematocrit was 48.9%. She had a left shift with 90.7 neutrophils. She does not have any elevated eosinophils. Her CRP was minimally elevated at 1.5. Initial blood gas showed pH 7.38, pCO2 41, pO2 100.7, HCO3 is 24.2, saturation 97.5% with an elevated PF ratio of 252. She was started on high-dose Solu-Medrol 125 mg and has been maintained on 60 mg IV q.6 hours. She feels much improved. Yesterday, she was quite anxious, receives Seroquel 25 mg q.12 hours and Xanax 0.5 mg q.8 hours, but became a little over-sedated. She had a PICC line placed yesterday July 28, due to access issues. The patient has rheumatoid arthritis, but no history of any lung involvement. She is on hydroxychloroquine and methotrexate. There is no history of any opportunistic infections. Her rheumatoid arthritis is under good control. Her initial joints included her ankles. Now, she has mild symptoms in the hands and her knees. She is followed by Dr. Marquez in [place]. She smoked for years, none in approximately 15 years. Last admission for COPD was 2006. She is up to date on flu shot and pneumonia vaccines. She has no exposure to secondhand smoke. ALLERGIES: NO DRUG ALLERGIES. HOME MEDICATIONS: 1. Amlodipine 10 mg a day. 2. Diclofenac 50 mg t.i.d. p.r.n. 3. Folic acid 1 mg a day. 4. Hydroxychloroquine 200 mg daily. 5. Methotrexate 7.5 mg weekly. 6. Tramadol 50 mg p.o. t.i.d. p.r.n. pain. 7. Symbicort 160/4.5 two puffs twice a day. 8. Spiriva 1 puff daily. 9. Albuterol rescue inhaler p.r.n. infrequent use. PAST MEDICAL HISTORY: 1. Moderate chronic obstructive pulmonary disease. 2. Hypertension. 3. Rheumatoid arthritis involving hands and knees, diagnosed about 5 years ago. 4. Remote history of a left lower extremity DVT 2006. 5. 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 6. History of a type 2 myocardial infarct
[2019-07-30] MEDS: IPRATROPIUM BR 0.02% INH SOLN 0.5 MG/2.5 ML VIAL INHALATION ×4 (02:16→21:01)
--- NOTE | 2019-07-30 03:30 | PC.NURSE ---
This patient used her call light to ask to use the bathroom so I (her RN for the night) went in her room to assist her to the commode. When I got in there this patient was asking about the bipap and why she should have to use it since she's never had to before. As mentioned in my earlier note she was refusing to wear it at this time. I explained to her again the benefit of the bipap and that she has a chronic condition so she might require different forms of treatment with each new exacerbation. She was also upset that someone had told her she couldn't use her mouth swabs to moisten her mouth, however I told her this was fine as long as she put the mask back on as soon as she was done swabbing. At this time radiology called my vocera and asked if they could take this patient down for a CT tonight instead of tomorrow and I said yes since the patient was wide awake and I also explained that by getting it done tonight then Dr. Reyes would have the results to look at as soon as she gets here tomorrow. This patient was very emotional during this whole conversation and my charge nurse Jessica entered the room. The two of us talked to her for an hour. The patient expressed the fact that she had been in [place] years back and she caught two staph infections while here. She then said she's not impressed with us again and she is scared to ever come here again. She told Jessica and I that it wasn't us specifically that was the problem, but the hospital as a whole because no other hospitals use machines like the bipap because these machines are just cruel to use on somebody and because whoever puts these things together doesn't know what they're doing because my mask is tighter today than it was yesterday. She ended up letting me take her down for the CT scan but she still didn't want to wear the bipap.
[2019-07-30 04:42] LABS: Hematocrit 38.9 % (37.0-47.0); Hemoglobin 12.7 g/dL (12.0-15.0); Mean Corpuscular HGB Conc 32.6 g/dl (32-36); Mean Corpuscular Hemoglobin 29.9 pg (26-34); Mean Corpuscular Volume 91.5 fl (80-100); Mean Platelet Volume 9.7 fl (7.4-10.4); Platelet Count Result 250 k/mm3 (150-375); Red Blood Count 4.25 M/mm3 (4.2-5.4); Red Cell Distribution Width 14.4 % (11.5-14.5); White Blood Count 13.3 K/mm3 (4.5-10.0)
[2019-07-30 05:07] LABS: Blood Urea Nitrogen 21 mg/dL (7-17); Calcium 7.9 mg/dL (8.4-10.2); Carbon Dioxide 34 mmol/L (22-30); Chloride 97 mmol/L (98-107); Estimated Glomerular Filt Rate > 60; Glucose 145 mg/dL (65-105); Potassium 3.4 mmol/L (3.4-5.0); Sodium 136 mmol/L (137-145)
[2019-07-30] MEDS: ALPRAZOLAM 0.5 MG TABLET PO ×3 (06:21→20:50)
[2019-07-30] MEDS: methylPREDNISolone SOD SUCC 40 MG VIAL IV PUSH ×3 (06:21→20:50)
[2019-07-30] MEDS: METOPROLOL TARTRATE 12.5 MG TABLET PO (08:11)
[2019-07-30] MEDS: AMLODIPINE BESYLATE 5 MG TABLET 10 MG PO (08:12)
[2019-07-30] MEDS: FOLIC ACID 1 MG TABLET PO (08:12)
[2019-07-30] MEDS: QUEtiapine FUMARATE 25 MG TABLET PO ×2 (08:12→20:50)
[2019-07-30] MEDS: SODIUM CHLORIDE 0.9% IV 1,000 ML 75 ML IV CONT (08:50)
--- NOTE | 2019-07-30 10:27 | PC.NURSE ---
Patient transferred to room 203 on tele, bedside report given to AYE Willard. Belongings sent with patient.
--- NOTE | 2019-07-30 10:35 | PC.NURSE ---
This patient, Pamela Gallegos, was received from ICU 6 on 07/30/19 at 1030. Personal belongings list checked and signed. Patient/family oriented to unit policies and routines
[2019-07-30] MEDS: FAMOTIDINE 20 MG TABLET PO ×2 (11:40→20:50)
--- NOTE | 2019-07-30 12:45 | PM.IMPN ---
Progress Note: A&P Assessment and Plan (1) Acute exacerbation of chronic obstructive airways disease: Code(s): J44.1 - Chronic obstructive pulmonary disease with (acute) exacerbation Status: Acute Assessment and Plan: Acute on chronic respiratory failure, secondary to COPD exacerbation. CXR did not show pneumonia. Pt has stabilised , transfer to medical floor, HR and resp much better today. Additional Plan Assessment and Plan (1) Elevated troponin: Code(s): R79.89 - Other specified abnormal findings of blood chemistry Status: Acute Assessment and Plan: Likely secondary to respiratory distress (2) Anxiety: Code(s): F41.9 - Anxiety disorder, unspecified Status: Acute Assessment and Plan: Continue anxiety medications. Add metoprolol orally to bring down HR (3) DVT prophylaxis: Code(s): Z29.9 - Encounter for prophylactic measures, unspecified Status: Acute Assessment and Plan: Lovenox (4) Acute and chronic respiratory failure: Qualifiers: Respiratory failure complication: unspecified whether with hypoxia or hypercapnia Qualified Code(s): J96.20 - Acute and chronic respiratory failure, unspecified whether with hypoxia or hypercapnia Code(s): J96.20 - Acute and chronic respiratory failure, unspecified whether with hypoxia or hypercapnia Status: Acute Assessment and Plan: Secondary to copd excerbation, breathing treatments, Iv steroids and iv rocephin and zithromax Pt is respiratory distress is ongoing Pt encouraged to wear her BIPAP mask as tolerated prn Cxr shows emphysema Ex smoker of 40 pk year history (5) Acute exacerbation of chronic obstructive airways disease: Code(s): J44.1 - Chronic obstructive pulmonary disease with (acute) exacerbation Status: Acute Assessment and Plan: Previous admission in 2006 (6) Sinus tachycardia: controlled with anxiety medications Code(s): R00.0 - Tachycardia, unspecified Status: Acute Assessment and Plan: Likely secondary to anxiety and hypoxia (7) Acute hypokalemia: Code(s): E87.6 - Hypokalemia Resolved Subjective Date/time seen: 07/30/19 12:45 Interval history: 74-year-old female with a past medical history of COPD, who presented to the ER with shortness of breath for the last 3 days. Admitted with acute on chronic respiratory distress secondary to COPD. Pt HR is better breathing better through face mask. Stable for transfer to medical floor. Cxr is improving. Long discussion about nebulizer treatments on discharge. Pt states she has quit smoking. EX smoker 40 pk year history. Review of Systems Review of Systems: All systems reviewed & are unremarkable except as noted in HPI and below Cardiovascular: Cardiovascular: Denies chest pain, Denies palpitations, Reports dyspnea and Reports dyspnea on exertion Respiratory: Respiratory: Reports chest congestion, Reports cough, Reports dyspnea, Reports dyspnea on exertion and Reports wheezing Psychiatric: Psychiatric: Reports anxiety Endocrine: Endocrine: Denies palpitations Allergic/Immunologic: Allergic/Immunologic: Reports wheezing Exam Narrative: Exam Narrative: Thin appearing, thin, emphysematous Const: General: in distress Neck: Neck: No no JVD Resp: Auscultation: wheezes and diminished lung sounds (Bilaterally ) Cardio: Rate: tachycardic GI: Auscultation: normal bowel sounds Neuro: Cognition (Neuro): normal cognition Extrem: General: normal to inspection Psych: Affect: Anxious affect present Objective Data Vital Signs Vital Signs: Vital Signs - 24 hr 07/29/19 13:40 07/29/19 13:50 07/29/19 14:00 Temperature Pulse Rate 95 93 103 H Respiratory Rate 20 20 24 H Blood Pressure 140/89 Pulse Oximetry 93 07/29/19 15:56 07/29/19 16:00 07/29/19 17:13 Temperature 36.8 C Pulse Rate 118 H 122 H Respiratory Rate 27 H Blood Pressure 150/1
[2019-07-30] MEDS: METOPROLOL TARTRATE 50 MG TAB PO (15:46)
--- NOTE | 2019-07-30 16:58 | WPDCN ---
Assessment and Plan Assessment and plan (1) Sinus tachycardia: Code(s): R00.0 - Tachycardia, unspecified Status: Acute Assessment and Plan: Some sinus tachycardia, generally reasonable rate, reactive secondary to COPD exacerbation. (2) PSVT (paroxysmal supraventricular tachycardia): Code(s): I47.1 - Supraventricular tachycardia Status: Acute Assessment and Plan: A couple brief episodes of PSVT have been noted. Likely a consequence of her COPD exacerbation and physiologic stress. So far no atrial fibrillation or sustained SVT. She was started on metoprolol 50 mg p.o. x1 then 25 mg b.i.d. which should be adequate. Will follow to see if there was any sustained episodes. Check an echo. P.r.n. Cardizem for sustained tachycardia. (3) Pneumonia: Qualifiers: Laterality: bilateral Lung location: lower lobe of lung Pneumonia type: due to unspecified organism Qualified Code(s): J18.9 - Pneumonia, unspecified organism Code(s): J18.9 - Pneumonia, unspecified organism Status: Acute (4) History of DVT (deep vein thrombosis): Code(s): Z86.718 - Personal history of other venous thrombosis and embolism Status: Acute Assessment and Plan: Patient has had 2 DVTs in her life, once when she was in her 30s and once in her 60s. She states that she was taking Xarelto prior to admission though I do not see it on her medication list. Had been on Lovenox which was discontinued today. Not sure why. DVT prophylaxis? (5) Chronic anticoagulation: Code(s): Z79.01 - skilled nursing (current) use of anticoagulants Status: Acute Assessment and Plan: Took Xarelto chronically prior to admission (6) Elevated troponin: Code(s): R79.89 - Other specified abnormal findings of blood chemistry Status: Acute Assessment and Plan: Elevated troponins on admission secondary to physiologic stress, no NC (7) Hypertension: Code(s): I10 - Essential (primary) hypertension Status: Acute Assessment and Plan: Takes amlodipine at home, metoprolol just started HPI Data of Consult Date/Time: 07/30/19 16:58 Requesting Physician: Jessica Girard DO Primary Care Provider: Shey QuezadaMD Consult Narrative Narrative: Date of service: 07/30/2019 Pamela Gallegos is a 74 year old female whom we are asked to see at the request of Dr. Dumont for our advice and opinion for her SVT and tachycardia in consultation. Mrs. Gallegos was admitted July 25 with an exacerbation of COPD and pneumonia. She was in the ICU for several days on CPAP, and was transferred to telemetry recently. She has had problems with some sinus tachycardia at times, heart rate going up into the 120s to 130s, though generally in the 90-100 beat per minute range. She has also had a couple runs of rapid SVT, the longest being for 16 beats. Telemetry also shows occasional APCs. The patient has no history of any heart disease. She has hypertension but no diabetes or hyperlipidemia. She quit smoking 40 years ago. 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 She denies any chest pain, palpitations, dizziness or edema. She of course does have some LUI but has not been hospitalized for many years. She has a history of DVTs, 1 time when she was in her 30s and once in her 60s. She saw risk reduction counselor a couple years ago who recommended Xarelto, which she states that she was taking on admission but is not on her med list.. No known prothrombotic disorder. Review of Systems Review of Systems: Narrative: No history of any cancers or strokes, no infection such as TB or hepatitis. Constitutional: Constitutional: Denies fatigue, Denies fever(s), Denies frequent falls and Denies lethargy Eyes: Eyes: Denies blurry vision ENT: Reports Normal hearing present Cardiovascular: Cardiovascular: Denies chest pain, Denies chest maty
[2019-07-30] MEDS: TRAMADOL HCL 50 MG TABLET PO (19:30)
--- NOTE | 2019-07-30 20:27 | PM.PNPUL ---
Progress Note: A&P Assessment and Plan (1) Acute exacerbation of chronic obstructive airways disease: Code(s): J44.1 - Chronic obstructive pulmonary disease with (acute) exacerbation Status: Acute Assessment and Plan: Gradual improvement, remains on 4 L/min, was not on supplemental O2 prior to admission. HRCT shows no infiltrate, severe emphysema. She is now off antibiotics, can tolerate lower steroids, can convert to prednisone orally. Echo is ordered for tomorrow. She is followed by Dinah Abbott NP at [facility] in [place]. (2) Respiratory failure: Qualifiers: Chronicity: acute on chronic Respiratory failure complication: hypoxia Qualified Code(s): J96.21 - Acute and chronic respiratory failure with hypoxia Code(s): J96.90 - Respiratory failure, unspecified, unspecified whether with hypoxia or hypercapnia Status: Acute Assessment and Plan: She has been on supplemental O2 since admission, was not on O2 before admission. She remains on 4 L/min. Saturation is 92 to 96%, indicating that O2 can be weaned. (3) History of DVT (deep vein thrombosis): Code(s): Z86.718 - Personal history of other venous thrombosis and embolism Status: Acute Assessment and Plan: history of LE DVT in her 30s and in her 60s (4) DVT prophylaxis: Code(s): Z29.9 - Encounter for prophylactic measures, unspecified Status: Acute Assessment and Plan: Lovenox 40 mg subcutaneously Q day. Subjective Date/time seen: 07/30/19 20:27 This 74 yo female is seen in follow up for COPD exacerbation with acute hypoxemic respiratory failure. She does not use supplemental O2 at home. She has RA and is treated with methotrexate and hydroxychloriquine. She has had persistent hypoxemia, and an echo was requested. Today she is feeling much improved, has moved from ICU to IMU Room 203. She has been out of the bed, able to walk to the bathroom with supervision although she does not need assistance. She has had episodes of sinus tachycardia and PSVT due tophysiologic stress of COPD exacerbation. She failed outpatient amoxicillin; on admission was on IV Rocephin, azithromycin, IV steroids. High res chest CT showed no infiltrate, only emphysema. She is on no antibiotics, and lower steroid dose. We can continue to wean O2, check echo results tomorrow. She has a history of DVT in the lower extremity in her 30s and again in her 60s, was on Xarelto prior to admission. Lovenox is now at DVT dose, 40 mg subcut daily. Review of Systems Review of Systems: Narrative: Good appetite. Feeling better overall. Eyes: Eyes: Reports no additional eye complaints ENT: Reports system reviewed and no additional complaints, except as documented Cardiovascular: Cardiovascular: Denies chest pain Musculoskeletal: Musculoskeletal: Reports back pain (chronic; she is not planning to have any surgical treatment.) Neurologic: Reports system reviewed and no additional complaints, except as documented Exam Const: General: no acute distress Eyes: General: appearance normal, both eyes and all related structures Neck: Neck: no JVD Resp: Auscultation: diminished lung sounds Other: Increased chest wall excursion with improved air movement. Cardio: Rate: regular rate Rhythm: regular rhythm Heart sounds: no gallops and no murmurs Skin: General skin exam: normal color Neuro: Speech: normal speech Extrem: General: normal to inspection Psych: Mental Status: mental status grossly normal Objective Data Vital Signs Vital Signs: Vital Signs - 24 hr 07/29/19 20:36 07/29/19 20:50 07/29/19 20:56 Temperature Pulse Rate 99 95 105 H Respiratory Rate 20 20 Blood Pressure Pulse Oximetry 96 07/29/19 22:00 07/29/19 22:39 07/30/19 00:00 Temperature 36.8 C Pulse Rate 92 84 95 Respiratory Rate 19 19 19 Blood Pressure 137/92 H 146/94 H Pulse Oximetry 98 94 94 07/30/19 02:00 07/30/19 02:18 01
[2019-07-30] MEDS: METOPROLOL TARTRATE 25 MG TABLET PO (20:51)
[2019-07-31] VITALS (26 sets, daily range): BP systolic 125–163; BP diastolic 79–96; PULSE 74–135; RESP 16–24; TEMP 36.5–37; O2SAT 92–99
--- NOTE | 2019-07-31 | ECHO_ITS ---
Patient Info Name: Pamela Gallegos Age: 74 years : 1945 Gender: Female Ht: 58 in Wt: 94 lbs BSA: 1.32 m2 HR: 88 bpm BP: 125 / 88 mmHg Heart Rhythm: Tachycardia Technical Quality: Good Exam Date: 07/31/2019 9:12 AM Exam Location: [facility] Patient Status: Inpatient Admit Date: 07/25/2019 Staff Ordering Physician: Karin Reyes MD Lip Reading Teacher: Aliyah Hassan RDCS Attending Provider: Jessica Girard DO Referring Physician: Amy BARNTLEY; Exam Type: CA echo doppler color flow Study Info Indications - sob Complete two-dimensional, color flow and Doppler transthoracic echocardiogram is performed. Summary 1. Left ventricular systolic function is normal, estimated at >70%. 2. There is no increased left ventricular wall thickness. 3. Left ventricular septal wall motion is normal. 4. The left ventricular diastolic function is grade I diastolic dysfunction. 5. There is mild mitral valve regurgitation. 6. Moderate pulmonary hypertension, estimated pulmonary arterial systolic pressure is 42 mmHg. 7. There is trace tricuspid valve regurgitation. 8. There is small pericardial effusion without evidence of tamponade physiology. Left Ventricle Left ventricular chamber dimension is normal. Left ventricular systolic function is normal, estimated at >70%. There is no increased left ventricular wall thickness. Left ventricular septal wall motion is normal. The left ventricular diastolic function is grade I diastolic dysfunction. Right Ventricle Right ventricular chamber dimension is normal. Right ventricular systolic function is normal. Left Atria Left atrial chamber dimension is normal. Right Atria Right atrial chamber dimension is normal. Aortic Valve The aortic valve is trileaflet. There is mild aortic valve sclerosis. There is no aortic valve stenosis. There is trace aortic valve regurgitation. Pulmonic Valve The pulmonic valve is not well visualized. Mitral Valve The mitral valve has normal leaflets. There is mild mitral valve regurgitation. Tricuspid Valve The tricuspid valve leaflets are normal. There is trace tricuspid valve regurgitation. Moderate pulmonary hypertension, estimated pulmonary arterial systolic pressure is 42 mmHg. Pericardium/Pleural The pericardium appears normal. There is small pericardial effusion without evidence of tamponade physiology. Inferior Vena Cava Normal inferior vena cava with >50% collapse upon inspiration consistent with normal right atrial pressure, 5 mmHg. Aorta The aortic root size at the sinus of Valsalva is normal. There is mild aortic atherosclerosis. Left Ventricular Outflow Tract Name Value Normal LVOT 2D LVOT Diameter 2.0 cm LVOT Doppler LVOT Peak Velocity 157 cm/s LVOT Peak Gradient 10 mmHg LVOT Mean Gradient 4 mmHg LVOT VTI 22 cm LVOT VTI/AV VTI Ratio 0.9 LVOT Stroke Volume 68 ml LVOT CO
[2019-07-31] MEDS: IPRATROPIUM BR 0.02% INH SOLN 0.5 MG/2.5 ML VIAL INHALATION ×4 (03:01→19:36)
[2019-07-31] MEDS: ALPRAZOLAM 0.5 MG TABLET PO ×3 (05:08→21:15)
[2019-07-31 05:20] LABS: Hematocrit 42.9 % (37.0-47.0); Hemoglobin 13.8 g/dL (12.0-15.0); Mean Corpuscular HGB Conc 32.2 g/dl (32-36); Mean Corpuscular Hemoglobin 29.4 pg (26-34); Mean Corpuscular Volume 91.5 fl (80-100); Mean Platelet Volume 9.7 fl (7.4-10.4); Platelet Count Result 216 k/mm3 (150-375); Red Blood Count 4.69 M/mm3 (4.2-5.4); Red Cell Distribution Width 14.5 % (11.5-14.5); White Blood Count 17.1 K/mm3 (4.5-10.0)
[2019-07-31 05:35] LABS: Blood Urea Nitrogen 19 mg/dL (7-17); Calcium 8.3 mg/dL (8.4-10.2); Carbon Dioxide 33 mmol/L (22-30); Chloride 97 mmol/L (98-107); Estimated Glomerular Filt Rate > 60; Glucose 143 mg/dL (65-105); Sodium 137 mmol/L (137-145)
[2019-07-31] MEDS: METOPROLOL TARTRATE 25 MG TABLET PO ×2 (08:59→21:15)
[2019-07-31] MEDS: FOLIC ACID 1 MG TABLET PO (08:59)
[2019-07-31] MEDS: QUEtiapine FUMARATE 25 MG TABLET PO ×2 (08:59→21:15)
[2019-07-31] MEDS: ENOXAPARIN 40 MG/0.4 ML SYRINGE SUB-Q (08:59)
[2019-07-31] MEDS: FAMOTIDINE 20 MG TABLET PO ×2 (08:59→21:15)
[2019-07-31] MEDS: AMLODIPINE BESYLATE 5 MG TABLET 10 MG PO (08:59)
[2019-07-31] MEDS: methylPREDNISolone SOD SUCC 40 MG VIAL IV PUSH ×2 (09:00→21:15)
--- NOTE | 2019-07-31 12:23 | PCDIET ---
Nutrition Follow-Up Complete: Nutrition Diagnosis: Inadequate oral intake related to decreased appetite as evidenced by patient/spouse statements, reported weight loss, apparent wasting. Nutrititon Goals: Intakes >50%, supplement acceptance Goals met. Patient consumed average of 59% of meals since 07/28/19 and reports appetite much improved. Does not take all supplements, but tries to take them most of the time, she reports. Discussed where patient may obtain these supplements on discharge. present during visit. Last recorded weight is 43 kg which is stable. Bowel Motility: +BM on 07/30/19. Labs Reviewed: Glu (143), BUN (19), Cr (0.4) Meds Noted: Folic Acid, Solu Medrol, Methotrexate Additional Notes: No documented skin breakdown. Will continue to monitor with same goals. Agree with diet and supplement orders. Nutrition Monitoring and Evaluation: Follow up in 5 days.
--- NOTE | 2019-07-31 15:31 | PM.PNCARD ---
Progress Note: A&P Assessment and Plan (1) Sinus tachycardia: Code(s): R00.0 - Tachycardia, unspecified Status: Acute Assessment and Plan: Some sinus tachycardia, generally reasonable rate, reactive secondary to COPD exacerbation. (2) PSVT (paroxysmal supraventricular tachycardia): Code(s): I47.1 - Supraventricular tachycardia Status: Acute Assessment and Plan: A couple brief episodes of PSVT have been noted. Mostly sinus tachycardia worsen with activity improves at rest. Continue for now with beta-rayne therapy. Likely a consequence of her COPD exacerbation and physiologic stress. So far no atrial fibrillation or sustained SVT. Will review echocardiogram when available. Pjuan manuel Mallory for sustained tachycardia. (3) Pneumonia: Qualifiers: Laterality: bilateral Lung location: lower lobe of lung Pneumonia type: due to unspecified organism Qualified Code(s): J18.9 - Pneumonia, unspecified organism Code(s): J18.9 - Pneumonia, unspecified organism Status: Acute Assessment and Plan: Per primary service, antibiotics, bronchodilator therapy. 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 She states that she was taking Xarelto prior to admission though I do not see it on her medication list. (5) Chronic anticoagulation: Code(s): Z79.01 - shelter (current) use of anticoagulants Status: Acute Assessment and Plan: Took Xarelto chronically prior to admission (6) Elevated troponin: Code(s): R79.89 - Other specified abnormal findings of blood chemistry Status: Acute Assessment and Plan: Elevated troponins on admission secondary to physiologic stress, no IL (7) Hypertension: Code(s): I10 - Essential (primary) hypertension Status: Acute Assessment and Plan: Takes amlodipine at home, metoprolol just started Subjective Date/time seen: Date of service: 07/31/2019 15:31 Follow-up for SVT tachycardia patient feeling much better. Denies significant shortness of breath. Occasional cough persists. Denies dizziness or lightheadedness. Discussed her extensive back pain, plans to cancel her surgery in detail an likelihood for referral for pain management in the future. Denies palpitations, chest pain. Remains tachycardic heart rate faster with any activity slows down at rest. Review of Systems Constitutional: Constitutional: Denies fatigue, Denies fever(s), Denies frequent falls and Denies lethargy Eyes: Eyes: Denies blurry vision ENT: Reports Normal hearing present Cardiovascular: Cardiovascular: Denies chest pain, Denies chest pain with activity, Denies syncope, Denies rapid heart rate, Denies pedal edema, Denies edema, Denies leg edema, Denies lightheadedness, Reports dyspnea, Reports dyspnea on exertion and Denies orthopnea Respiratory: Respiratory: Reports chest congestion, Reports cough, Reports dyspnea and Reports dyspnea on exertion Gastrointestinal: Gastrointestinal: Denies abdominal pain and Denies hematochezia Genitourinary: Genitourinary: Denies hematuria Musculoskeletal: Musculoskeletal: Reports back pain (Has bad DJD of the spine) and Denies arthralgias Integumentary/Breasts: Skin/Breast: Denies rash and Denies wounds Neurologic: Reports Normal hearing present, Denies confusion, Denies syncope and Denies frequent falls Psychiatric: Psychiatric: Reports anxiety and Denies confusion Endocrine: Endocrine: Denies fatigue Hematologic/Lymphatic: Hematologic/Lymphatic: Denies easy bleeding Exam Narrative: Exam Narrative: Very petite older lady, very talkative and chatty, no distress Const: General: comfortable and no acute distress; No confusion Orientation/conscio
--- NOTE | 2019-07-31 17:29 | PM.IMPN ---
Progress Note: A&P Assessment and Plan (1) Acute exacerbation of chronic obstructive airways disease: Code(s): J44.1 - Chronic obstructive pulmonary disease with (acute) exacerbation Status: Acute Assessment and Plan: 74-year-old female with a past medical history of COPD, who presented to the ER with shortness of breath for the last 3 days. Admitted with acute on chronic respiratory distress secondary to COPD. Pt HR was better breathing better through face mask and transferred out of ICU to IMU. Cxr is improving. Today patient is feeling better was able to ambulate to the bathroom without getting significant shortness of breath, . Pt states she has quit smoking. EX smoker 40 pk year history. Patient denies any chest pain shortness of breath dizziness palpitation fever or chills at rest, however does get short winded with a significant exertion patient seen by Dr. Reyes being treated with Solu-Medrol updraft symptoms are improving will taper her Solu-Medrol. (2) PSVT (paroxysmal supraventricular tachycardia): Code(s): I47.1 - Supraventricular tachycardia Status: Acute Assessment and Plan: Patient with a proximal supplemental tachycardia most likely secondary to exacerbation of COPD patient is on beta-rayne seen by recruiter coordinator rate is now controlled unlikely AFib Additional Plan Assessment and Plan (1) Elevated troponin: Code(s): R79.89 - Other specified abnormal findings of blood chemistry Status: Acute Assessment and Plan: Likely secondary to respiratory distress (2) Anxiety: Code(s): F41.9 - Anxiety disorder, unspecified Status: Acute Assessment and Plan: Continue anxiety medications. Add metoprolol orally to bring down HR (3) DVT prophylaxis: Code(s): Z29.9 - Encounter for prophylactic measures, unspecified Status: Acute Assessment and Plan: Lovenox (4) Acute and chronic respiratory failure: Qualifiers: Respiratory failure complication: unspecified whether with hypoxia or hypercapnia Qualified Code(s): J96.20 - Acute and chronic respiratory failure, unspecified whether with hypoxia or hypercapnia Code(s): J96.20 - Acute and chronic respiratory failure, unspecified whether with hypoxia or hypercapnia Status: Acute Assessment and Plan: Secondary to copd excerbation, breathing treatments, Iv steroids and iv rocephin and zithromax Pt is respiratory distress is ongoing Pt encouraged to wear her BIPAP mask as tolerated prn Cxr shows emphysema Ex smoker of 40 pk year history (5) Acute exacerbation of chronic obstructive airways disease: Code(s): J44.1 - Chronic obstructive pulmonary disease with (acute) exacerbation Status: Acute Assessment and Plan: Previous admission in 2006 (6) Sinus tachycardia: controlled with anxiety medications Code(s): R00.0 - Tachycardia, unspecified Status: Acute Assessment and Plan: Likely secondary to anxiety and hypoxia (7) Acute hypokalemia: Code(s): E87.6 - Hypokalemia Resolved Subjective Date/time seen: 07/31/19 17:29 Interval history: 74-year-old female with a past medical history of COPD, who presented to the ER with shortness of breath for the last 3 days. Admitted with acute on chronic respiratory distress secondary to COPD. Pt HR was better breathing better through face mask and transferred out of ICU to IMU. Cxr is improving. Today patient is feeling better was able to ambulate to the bathroom without getting significant shortness of breath, . Pt states she has quit smoking. EX smoker 40 pk year history. Patient denies any chest pain shortness of breath dizziness palpitation fever or chills at rest, however does get short winded with a significant exertion Review of Systems Review of Systems: All systems reviewed & are unremarkable except as noted in HPI and below Exam Narrative: Exam Narrative: Marge
--- NOTE | 2019-07-31 21:50 | PM.PNPUL ---
Progress Note: A&P Assessment and Plan (1) COPD exacerbation: Code(s): J44.1 - Chronic obstructive pulmonary disease with (acute) exacerbation Status: Acute Assessment and Plan: - continue current nebulized regimen, systemic steroids for 5-7 days - resume Spiriva and Symbicort upon disharge home - flue and pneumoonia immunizations are up to date. - f/u in pulmonary clinc 2-4 weeks after discharge. - PT/OT Time Spent With Patient Time with patient: 25 - 35 minutes Subjective Date/time seen: 07/31/19 21:50 Interval history: Feeling much better and wants to go home Review of Systems Review of Systems: All systems reviewed & are unremarkable except as noted in HPI and below Exam Const: General: comfortable and no acute distress Neck: Neck: supple and no JVD Resp: Auscultation: wheezes and diminished lung sounds Cardio: Rate: regular rate Rhythm: regular rhythm Heart sounds: no murmurs and no rubs GI: Auscultation: normal bowel sounds Neuro: Speech: normal speech Extrem: General: normal to inspection and no edema Objective Data Vital Signs Vital Signs: Vital Signs - 24 hr 07/30/19 22:00 07/30/19 23:41 07/31/19 00:00 Temperature Pulse Rate 79 102 H 76 Respiratory Rate 18 Blood Pressure Pulse Oximetry 07/31/19 02:00 07/31/19 03:01 07/31/19 03:10 Temperature Pulse Rate 74 77 86 Respiratory Rate 18 18 Blood Pressure Pulse Oximetry 07/31/19 04:00 07/31/19 06:00 07/31/19 07:51 Temperature 36.6 C 36.8 C Pulse Rate 88 88 89 Respiratory Rate 22 H 24 H Blood Pressure 125/88 163/96 H Pulse Oximetry 95 95 07/31/19 08:00 07/31/19 08:59 07/31/19 09:50 Temperature Pulse Rate 89 123 H 106 H Respiratory Rate 20 Blood Pressure Pulse Oximetry 94 07/31/19 10:02 07/31/19 10:15 07/31/19 12:00 Temperature 37.0 C Pulse Rate 113 H 114 H 112 H Respiratory Rate 20 16 Blood Pressure 134/79 Pulse Oximetry 94 07/31/19 14:25 07/31/19 15:40 07/31/19 15:51 Temperature Pulse Rate 108 H 116 H 112 H Respiratory Rate 20 18 Blood Pressure Pulse Oximetry 07/31/19 16:00 07/31/19 18:00 07/31/19 19:37 Temperature 36.5 C Pulse Rate 119 H 126 H 124 H Respiratory Rate 24 H 18 Blood Pressure 146/96 H Pulse Oximetry 95 07/31/19 19:39 07/31/19 19:41 07/31/19 19:44 Temperature 36.7 C Pulse Rate 130 H 129 H Respiratory Rate 20 18 Blood Pressure 163/89 H Pulse Oximetry 95 92 07/31/19 20:00 07/31/19 21:15 Temperature Pulse Rate 129 H 135 H Respiratory Rate Blood Pressure Pulse Oximetry Intake/Output Intake/Output: Intake & Output 07/28/19 07/29/19 07/30/19 07/31/19 23:59 23:59 23:59 23:59 Intake Total 1645.8 960 2546 860 Output Total 2350 1925 1775 3375 [facility] -[phone] Meds/Results Medications: Active Medications Generic Name Dose Route Start Last Admin Trade Name Freq PRN Reason Stop Dose Admin Alprazolam 0.5 mg 07/29/19 10:15 07/31/19 21:15 Xanax PO 0.5 mg Q8HR NATALIE Administration Amlodipine Besylate 10 mg 07/27/19 09:00 07/31/19 08:59 Norvasc PO 10 mg DAILY NATALIE Administration Diltiazem HCl 5 mg 07/30/19 17:25 Cardizem Inj IV PUSH Q4H PRN Tachycardia Enoxaparin Sodium 40 mg 07/31/19 09:00 07/31/19 08:59 Lovenox SUB-Q 40 mg DAILY NATALIE Administration Famotidine 20 mg 07/30/19 11:10 07/31/19 21:15 Pepcid PO 20 mg Q12HR NATALIE Administration Folic Acid 1 mg 07/27/19 09:00 07/31/19 08:59 Folic Acid PO 1 mg DAILY NATALIE Administration Ipratropium [place] 0.5 mg 07/25/19 08:00 07/31/19 19:36 Atrovent Neb INHALATION 0.5 mg Q6HRT NATALIE Administration Levalbuterol HCl 1.25 mg 07/27/19 02:00 07/31/19 19:36 Xopenex 1.25 Mg/0.5 Ml INHALATION 1.25 mg Q6HRT NATALIE Administration Lorazepam 1 mg 07/26/19 21:34 07/28/19 22:11 Ativan Inj IV PUSH 1 mg Q6H PRN Administration
[2019-08-01] VITALS (25 sets, daily range): BP systolic 131–156; BP diastolic 87–94; PULSE 76–119; RESP 18–22; TEMP 36.6–37.3; O2SAT 92–97
[2019-08-01] MEDS: IPRATROPIUM BR 0.02% INH SOLN 0.5 MG/2.5 ML VIAL INHALATION ×4 (01:48→19:33)
[2019-08-01 04:17] LABS: Hematocrit 42.8 % (37.0-47.0); Mean Corpuscular HGB Conc 32.7 g/dl (32-36); Mean Corpuscular Hemoglobin 29.8 pg (26-34); Mean Corpuscular Volume 91.1 fl (80-100); Mean Platelet Volume 9.9 fl (7.4-10.4); Platelet Count Result 198 k/mm3 (150-375); Red Cell Distribution Width 14.1 % (11.5-14.5); White Blood Count 11.9 K/mm3 (4.5-10.0)
[2019-08-01 04:31] LABS: Blood Urea Nitrogen 20 mg/dL (7-17); Calcium 7.9 mg/dL (8.4-10.2); Carbon Dioxide 34 mmol/L (22-30); Chloride 96 mmol/L (98-107); Estimated Glomerular Filt Rate > 60; Glucose 173 mg/dL (65-105); Potassium 3.5 mmol/L (3.4-5.0); Sodium 135 mmol/L (137-145)
[2019-08-01] MEDS: ALPRAZOLAM 0.5 MG TABLET PO ×3 (06:55→21:00)
[2019-08-01] MEDS: methylPREDNISolone SOD SUCC 40 MG VIAL IV PUSH ×2 (08:42→21:01)
[2019-08-01] MEDS: FAMOTIDINE 20 MG TABLET PO ×2 (08:42→21:00)
[2019-08-01] MEDS: QUEtiapine FUMARATE 25 MG TABLET PO ×2 (08:42→21:01)
[2019-08-01] MEDS: AMLODIPINE BESYLATE 5 MG TABLET 10 MG PO (08:42)
[2019-08-01] MEDS: METOPROLOL TARTRATE 25 MG TABLET PO ×2 (08:42→13:59)
[2019-08-01] MEDS: ENOXAPARIN 40 MG/0.4 ML SYRINGE SUB-Q (08:43)
[2019-08-01] MEDS: FOLIC ACID 1 MG TABLET PO (11:15)
--- NOTE | 2019-08-01 13:02 | PM.PNCARD ---
Progress Note: A&P Assessment and Plan (1) Sinus tachycardia: Code(s): R00.0 - Tachycardia, unspecified Status: Acute Assessment and Plan: HR reasonable, faster with activity generally around 100bpm consistent with compensatory sinus tachycardia. (2) PSVT (paroxysmal supraventricular tachycardia): Code(s): I47.1 - Supraventricular tachycardia Status: Acute Assessment and Plan: A couple of brief episodes of PSVT have been noted earlier in this hospitalization. Probably aberrantly conducted SVT this AM, although cannot entirely exclude NSVT. EF >70% by Echo, NSVT less likely. K+ 3.5, Mg2+ 2.0. May give additional 20MEQ po x1. Increase Metoprolol to 50mg BID as tolerated. Follow up with Dr. Aceves as an outpatient regarding PSVT. (3) Pneumonia: Qualifiers: Laterality: bilateral Lung location: lower lobe of lung Pneumonia type: due to unspecified organism Qualified Code(s): J18.9 - Pneumonia, unspecified organism Code(s): J18.9 - Pneumonia, unspecified organism Status: Acute Assessment and Plan: Per primary service, antibiotics, bronchodilator therapy. PT/OT. 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 She states that she was taking Xarelto prior to admission though I do not see it on her medication list. (5) Chronic anticoagulation: Code(s): Z79.01 - intermediate frame tender (current) use of anticoagulants Status: Acute Assessment and Plan: Took Xarelto chronically prior to admission (6) Elevated troponin: Code(s): R79.89 - Other specified abnormal findings of blood chemistry Status: Acute Assessment and Plan: Elevated troponins on admission secondary to physiologic stress, no MT (7) Hypertension: Code(s): I10 - Essential (primary) hypertension Status: Acute Assessment and Plan: Marginal control, elevated at times. Continue to monitor. Subjective Date/time seen: Date of Service: 08/01/19 13:02 Follow up for sinus tachycardia, SVT Feels stronger today, ambulating without difficulty. No CP or SOB. No palps. Around 0406 this AM had approximately 15 beats WCT aberrantly conducted SVT vs NSVT, asymptomatic. No palpitations, edema or bleeding. Eating well. Review of Systems Constitutional: Constitutional: Denies fatigue, Denies fever(s), Denies frequent falls and Denies lethargy Eyes: Eyes: Denies blurry vision ENT: Reports Normal hearing present Cardiovascular: Cardiovascular: Denies chest pain, Denies chest pain with activity, Denies syncope, Denies rapid heart rate, Denies pedal edema, Denies edema, Denies leg edema, Denies lightheadedness, Reports dyspnea, Reports dyspnea on exertion and Denies orthopnea Respiratory: Respiratory: Reports chest congestion, Reports cough, Reports dyspnea and Reports dyspnea on exertion Gastrointestinal: Gastrointestinal: Denies abdominal pain and Denies hematochezia Genitourinary: Genitourinary: Denies hematuria Musculoskeletal: Musculoskeletal: Reports back pain (Has bad DJD of the spine) and Denies arthralgias Integumentary/Breasts: Skin/Breast: Denies rash and Denies wounds Neurologic: Reports Normal hearing present, Denies confusion, Denies syncope and Denies frequent falls Psychiatric: Psychiatric: Reports anxiety and Denies confusion Endocrine: Endocrine: Denies fatigue Hematologic/Lymphatic: Hematologic/Lymphatic: Denies easy bleeding Exam Narrative: Exam Narrative: Very petite older lady, very talkative and chatty, no distress Const: General: comfortable and no acute distress; No confusion Orientation/consciousness: No confusion HENMT: Mouth: Yes moist mucous membranes Eyes: EOM: EOMs intact bilaterally Neck: Neck: supp
--- NOTE | 2019-08-01 13:30 | PM.PNPUL ---
Progress Note: A&P Assessment and Plan (1) COPD exacerbation: Code(s): J44.1 - Chronic obstructive pulmonary disease with (acute) exacerbation Status: Acute Assessment and Plan: - continue current nebulized regimen, systemic steroids for 5-7 days - resume Spiriva and Symbicort upon discharge home - flu and pneumonia immunizations are up to date. - f/u in pulmonary clinic 2-4 weeks after discharge. - PT/OT Time Spent With Patient Time with patient: 15 - 25 minutes Subjective Date/time seen: 08/01/19 13:30 Interval history: Feeling better. Could be discharged home tomorrow. Exam Const: General: comfortable and no acute distress HENMT: Mouth: Yes moist mucous membranes Neck: Neck: supple and no JVD Resp: Auscultation: no crackles, wheezes (very minimal on the left ) and diminished lung sounds Cardio: Rate: regular rate Rhythm: regular rhythm Heart sounds: no gallops and no murmurs GI: Auscultation: normal bowel sounds Skin: General skin exam: normal color Other: upper extremity echymosis and petichia Neuro: Speech: normal speech Extrem: General: normal to inspection, no edema and no pedal edema Objective Data Vital Signs Vital Signs: Vital Signs - 24 hr 07/31/19 14:25 07/31/19 15:40 07/31/19 15:51 Temperature Pulse Rate 108 H 116 H 112 H Respiratory Rate 20 18 Blood Pressure Pulse Oximetry 07/31/19 16:00 07/31/19 18:00 07/31/19 19:37 Temperature 36.5 C Pulse Rate 119 H 126 H 124 H Respiratory Rate 24 H 18 Blood Pressure 146/96 H Pulse Oximetry 95 07/31/19 19:39 07/31/19 19:41 07/31/19 19:44 Temperature 36.7 C Pulse Rate 130 H 129 H Respiratory Rate 20 18 Blood Pressure 163/89 H Pulse Oximetry 95 92 07/31/19 20:00 07/31/19 21:15 07/31/19 21:54 Temperature Pulse Rate 129 H 135 H 109 H Respiratory Rate Blood Pressure Pulse Oximetry 07/31/19 23:11 08/01/19 00:00 08/01/19 01:49 Temperature 36.7 C Pulse Rate 104 H 94 82 Respiratory Rate 18 18 Blood Pressure 130/90 Pulse Oximetry 99 08/01/19 01:54 08/01/19 02:00 08/01/19 03:51 Temperature 36.6 C Pulse Rate 87 86 81 Respiratory Rate 18 20 Blood Pressure 150/88 H Pulse Oximetry 97 08/01/19 04:00 08/01/19 06:00 08/01/19 08:00 Temperature 36.9 C Pulse Rate 82 95 108 H Respiratory Rate 22 H Blood Pressure 156/94 H Pulse Oximetry 94 08/01/19 08:42 08/01/19 09:09 08/01/19 10:00 Temperature Pulse Rate 119 H 104 H 115 H Respiratory Rate 20 Blood Pressure Pulse Oximetry 08/01/19 12:00 Temperature 36.9 C Pulse Rate 116 H Respiratory Rate 22 H Blood Pressure 131/90 Pulse Oximetry 94 Intake/Output Intake/Output: Intake & Output 07/29/19 07/30/19 07/31/19 08/01/19 23:59 23:59 23:59 23:59 Intake Total 960 2902 860 860 Output Total 0590 7791 7661 2100 Balance -[facility] [phone] Meds/Results Medications: Active Medications Generic Name Dose Route Start Last Admin Trade Name Freq PRN Reason Stop Dose Admin Alprazolam 0.5 mg 07/29/19 10:15 08/01/19 06:55 Xanax PO 0.5 mg Q8HR NATALIE Administration Amlodipine Besylate 10 mg 07/27/19 09:00 08/01/19 08:42 Norvasc PO 10 mg DAILY NATALIE Administration Diltiazem HCl 5 mg 07/30/19 17:25 Cardizem Inj IV PUSH Q4H PRN Tachycardia Enoxaparin Sodium 40 mg 07/31/19 09:00 08/01/19 08:43 Lovenox SUB-Q 40 mg DAILY NATALIE Administration Famotidine 20 mg 07/30/19 11:10 08/01/19 08:42 Pepcid PO 20 mg Q12HR NATALIE Administration Folic Acid 1 mg 07/27/19 09:00 08/01/19 11:15 Folic Acid PO 1 mg DAILY NATALIE Administration Ipratropium [place] 0.5 mg 07/25/19 08:00 08/01/19 09:09 Atrovent Neb INHALATION 0.5 mg Q6HRT NATALIE Administration Levalbuterol HCl 1.25 mg 07/27/19 02:00 08/01/19 09:09 Xopenex 1.25 Mg/0.5 Ml INHALATION 1.25 mg Q6HRT NATALIE Administration Lorazepam 1 mg 07/26/19 21:34
[2019-08-01] MEDS: TRAMADOL HCL 50 MG TABLET PO (16:10)
--- NOTE | 2019-08-01 17:03 | PM.IMPN ---
Progress Note: A&P Assessment and Plan (1) Acute exacerbation of chronic obstructive airways disease: Code(s): J44.1 - Chronic obstructive pulmonary disease with (acute) exacerbation Status: Acute Assessment and Plan: 74-year-old female with a past medical history of COPD, who presented to the ER with shortness of breath for the last 3 days. Admitted with acute on chronic respiratory distress secondary to COPD. Pt HR was better breathing better through face mask and transferred out of ICU to IMU. Cxr is improving. again Today patient is feeling better was able to ambulate to the bathroom without getting significant shortness of breath, . Pt states she has quit smoking. EX smoker 40 pk year history. Patient denies any chest pain shortness of breath dizziness palpitation fever or chills at rest, however does get short winded with a significant exertion patient seen by Dr. Reyes being treated with Solu-Medrol updraft symptoms are improving will taper her Solu-Medrol. (2) PSVT (paroxysmal supraventricular tachycardia): Code(s): I47.1 - Supraventricular tachycardia Status: Acute Assessment and Plan: Patient with a proximal supplemental tachycardia most likely secondary to exacerbation of COPD patient is on beta-rayne seen by cooling tower operator rate is now controlled unlikely AFib Additional Plan Assessment and Plan (1) Elevated troponin: Code(s): R79.89 - Other specified abnormal findings of blood chemistry Status: Acute Assessment and Plan: Likely secondary to respiratory distress (2) Anxiety: Code(s): F41.9 - Anxiety disorder, unspecified Status: Acute Assessment and Plan: Continue anxiety medications. Add metoprolol orally to bring down HR (3) DVT prophylaxis: Code(s): Z29.9 - Encounter for prophylactic measures, unspecified Status: Acute Assessment and Plan: Lovenox (4) Acute and chronic respiratory failure: Qualifiers: Respiratory failure complication: unspecified whether with hypoxia or hypercapnia Qualified Code(s): J96.20 - Acute and chronic respiratory failure, unspecified whether with hypoxia or hypercapnia Code(s): J96.20 - Acute and chronic respiratory failure, unspecified whether with hypoxia or hypercapnia Status: Acute Assessment and Plan: Secondary to copd excerbation, breathing treatments, Iv steroids and iv rocephin and zithromax Pt is respiratory distress is ongoing Pt encouraged to wear her BIPAP mask as tolerated prn Cxr shows emphysema Ex smoker of 40 pk year history (5) Acute exacerbation of chronic obstructive airways disease: Code(s): J44.1 - Chronic obstructive pulmonary disease with (acute) exacerbation Status: Acute Assessment and Plan: Previous admission in 2006 (6) Sinus tachycardia: controlled with anxiety medications Code(s): R00.0 - Tachycardia, unspecified Status: Acute Assessment and Plan: Likely secondary to anxiety and hypoxia (7) Acute hypokalemia: Code(s): E87.6 - Hypokalemia Resolved Subjective Date/time seen: 08/01/19 17:03 74-year-old female with a past medical history of COPD, who presented to the ER with shortness of breath for the last 3 days. Admitted with acute on chronic respiratory distress secondary to COPD. Pt HR was better breathing better through face mask and transferred out of ICU to IMU. Cxr is improving. again Today patient is feeling better was able to ambulate to the bathroom without getting significant shortness of breath, . Pt states she has quit smoking. EX smoker 40 pk year history. Patient denies any chest pain shortness of breath dizziness palpitation fever or chills at rest, however does get short winded with a significant exertion patient seen by Dr. Reyes being treated with Solu-Medrol updraft symptoms are improving will taper her Solu-Medrol. Review of Systems Review of Systems: All
[2019-08-01] MEDS: METOPROLOL TARTRATE 50 MG TAB PO (21:00)
[2019-08-02] VITALS (20 sets, daily range): BP systolic 120–162; BP diastolic 71–98; PULSE 68–118; RESP 16–22; TEMP 36.6–37.2; O2SAT 91–97
[2019-08-02] MEDS: TRAMADOL HCL 50 MG TABLET PO ×2 (00:04→21:24)
[2019-08-02] MEDS: IPRATROPIUM BR 0.02% INH SOLN 0.5 MG/2.5 ML VIAL INHALATION ×4 (01:25→19:56)
[2019-08-02 04:57] LABS: Hematocrit 41.1 % (37.0-47.0); Hemoglobin 13.3 g/dL (12.0-15.0); Mean Corpuscular HGB Conc 32.4 g/dl (32-36); Mean Corpuscular Hemoglobin 29.6 pg (26-34); Mean Corpuscular Volume 91.3 fl (80-100); Mean Platelet Volume 10.7 fl (7.4-10.4); Platelet Count Result 180 k/mm3 (150-375); Red Cell Distribution Width 14.2 % (11.5-14.5); White Blood Count 12.3 K/mm3 (4.5-10.0)
[2019-08-02 05:12] LABS: Blood Urea Nitrogen 30 mg/dL (7-17); Calcium 7.9 mg/dL (8.4-10.2); Carbon Dioxide 35 mmol/L (22-30); Chloride 94 mmol/L (98-107); Estimated Glomerular Filt Rate > 60; Glucose 166 mg/dL (65-105); Potassium 4.4 mmol/L (3.4-5.0); Sodium 133 mmol/L (137-145)
[2019-08-02] MEDS: ALPRAZOLAM 0.5 MG TABLET PO ×3 (05:58→21:25)
[2019-08-02] MEDS: METOPROLOL TARTRATE 50 MG TAB PO ×2 (08:36→21:25)
[2019-08-02] MEDS: AMLODIPINE BESYLATE 5 MG TABLET 10 MG PO (08:36)
[2019-08-02] MEDS: METHOTREXATE 2.5 MG TAB (*CHEMO) 7.5 MG PO (08:36)
[2019-08-02] MEDS: QUEtiapine FUMARATE 25 MG TABLET PO ×2 (08:36→21:25)
[2019-08-02] MEDS: methylPREDNISolone SOD SUCC 40 MG VIAL IV PUSH (08:36)
[2019-08-02] MEDS: ENOXAPARIN 40 MG/0.4 ML SYRINGE SUB-Q (08:37)
[2019-08-02] MEDS: FOLIC ACID 1 MG TABLET PO (08:37)
[2019-08-02] MEDS: FAMOTIDINE 20 MG TABLET PO ×2 (08:37→21:25)
--- NOTE | 2019-08-02 09:34 | PM.PNCARD ---
Progress Note: A&P Assessment and Plan (1) Sinus tachycardia: Code(s): R00.0 - Tachycardia, unspecified Status: Acute Assessment and Plan: HR reasonable, faster with activity generally around 100bpm consistent with compensatory sinus tachycardia. (2) PSVT (paroxysmal supraventricular tachycardia): Code(s): I47.1 - Supraventricular tachycardia Status: Acute Assessment and Plan: Still with a couple of brief episodes of PSVT on telemetry. EF >70% by Echo, NSVT less likely. K+ better this AM. Will observe response to increased Metoprolol today with further adjustment based upon tolerance and control of SVT. Repeat 12 lead EKG today. Continue Metoprolol 50mg BID for now, may increase if significant recurrence of SVT or sustained episodes. PRN Diltiazem discontinued to simplify management. Follow up with Dr. Aceves as an outpatient regarding PSVT. (3) Pneumonia: Qualifiers: Laterality: bilateral Lung location: lower lobe of lung Pneumonia type: due to unspecified organism Qualified Code(s): J18.9 - Pneumonia, unspecified organism Code(s): J18.9 - Pneumonia, unspecified organism Status: Acute Assessment and Plan: Per primary service, antibiotics, bronchodilator therapy. PT/OT. (4) History of DVT (deep vein thrombosis): Code(s): Z86.718 - Personal history of other venous thrombosis and embolism Status: Acute Assessment and Plan: Defer to Primary service to resume/manage as appropriate. No new cardiovascular indication for systemic anticoagulation. 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 She states that she was taking Xarelto prior to admission though I do not see it on her medication list and primary service has not restarted. (5) Chronic anticoagulation: Code(s): Z79.01 - detention (current) use of anticoagulants Status: Acute Assessment and Plan: As above. Took Xarelto chronically prior to admission per pt. She is currently receiving Enoxaparin DVT prophylaxis. (6) Elevated troponin: Code(s): R79.89 - Other specified abnormal findings of blood chemistry Status: Acute Assessment and Plan: Non-NV troponin elevation. Elevated troponins on admission secondary to physiologic stress. (7) Hypertension: Code(s): I10 - Essential (primary) hypertension Status: Acute Assessment and Plan: BP generally remains moderately high. Resume Amlodipine she was taking at home but at 5mg daily and monitor BP closely to avoid hypotension. Subjective Date/time seen: Date of Service: 08/02/19 09:34 Follow up for SVT, sinus tachycardia Feels ok, weak but slowly improving. Denies SOB, CP, dizziness, or palpitations. Still with occ brief SVT on telemetry 10-15 beats in duration, one 4 beat WCT. Notes mild sore throat she blames on BiPAP/CPAP use after admission, no dysphagia. Eating well. Review of Systems Constitutional: Constitutional: Reports no additional constitutional complaints, Reports fatigue, Denies fever(s), Denies frequent falls and Reports weakness Eyes: Eyes: Reports no additional eye complaints and Denies blurry vision ENT: Reports system reviewed and no additional complaints, except as documented and Reports Normal hearing present Comments: notes mild sore throat Cardiovascular: Cardiovascular: Reports no additional cardiovascular complaints, Denies chest pain, Denies chest pain with activity, Denies syncope, Denies rapid heart rate, Denies pedal edema, Denies edema, Denies leg edema, Denies lightheadedness, Reports dyspnea, Reports dyspnea on exertion and Denies orthopnea Respiratory: Respiratory: Reports no additional respiratory complaints and Reports cough Gastrointestinal: Gastrointestinal: Reports no additional gastrointestinal complaints, Denies abdominal pain and Denies hematochezia Genitourinary: Genitourinary: Reports no ad
--- NOTE | 2019-08-02 09:47 | ECG_ITS ---
Measurements Intervals [place] Rate: 95 P: 16 KS: 105 QRS: 52 QRSD: 73 T: -6 QT: 329 QTc: 415 Interpretive Statements SINUS RHYTHM WITH SINUS ARRHYTHMIA WITH SHORT [place] INTERVAL SUPRAVENTRICULAR BIGEMINY DELAYED PRECORDIAL R/S TRANSITION NONSPECIFIC T-WAVE ABNORMALITY- INFERIOR LEADS BASELINE WANDER- I, II, III, V2, V4-V6 ABNORMAL ECG Electronically Signed On 08-02-2019 10:39:55 END MAKER by Keny Marcos D.O.
--- NOTE | 2019-08-02 12:47 | PM.PNPUL ---
Progress Note: A&P Assessment and Plan (1) COPD exacerbation: Code(s): J44.1 - Chronic obstructive pulmonary disease with (acute) exacerbation Status: Acute Assessment and Plan: - will discontinue solumedrol today, no further systemic steroids are needed. - can be discharged home from pulmonary perspective - can resume all home inhalers/nebulized regimen upon discharge. 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 No complaints. Almost back to baseline. Review of Systems Review of Systems: All systems reviewed & are unremarkable except as noted in HPI and below Constitutional: Constitutional: Reports as per HPI Exam Neck: Neck: supple and no JVD Resp: Auscultation: clear to auscultation bilaterally and diminished lung sounds Cardio: Rate: regular rate Rhythm: regular rhythm GI: Auscultation: normal bowel sounds Skin: General skin exam: normal color Neuro: Speech: normal speech Extrem: General: normal to inspection, no edema and no pedal edema Psych: Mental Status: mental status grossly normal Affect: normal affect Objective Data Vital Signs Vital Signs: Vital Signs - 24 hr 08/01/19 13:59 08/01/19 14:20 08/01/19 14:26 Temperature Pulse Rate 118 H 108 H 110 H Respiratory Rate 20 Blood Pressure Pulse Oximetry 08/01/19 14:36 08/01/19 16:00 08/01/19 18:00 Temperature 37.3 C Pulse Rate 113 H 90 95 Respiratory Rate 20 22 H Blood Pressure 145/88 H Pulse Oximetry 93 08/01/19 19:03 08/01/19 19:33 08/01/19 19:35 Temperature 36.9 C Pulse Rate 102 H 98 Respiratory Rate 22 H 20 Blood Pressure 145/87 H Pulse Oximetry 95 92 08/01/19 19:42 08/01/19 20:00 08/01/19 21:00 Temperature Pulse Rate 102 H 105 H 102 H Respiratory Rate 20 Blood Pressure Pulse Oximetry 08/01/19 22:00 08/02/19 00:00 08/02/19 01:25 Temperature Pulse Rate 76 79 68 Respiratory Rate 20 Blood Pressure 160/98 H Pulse Oximetry 94 08/02/19 01:34 08/02/19 02:00 08/02/19 04:00 Temperature 36.6 C Pulse Rate 70 79 79 Respiratory Rate 20 18 Blood Pressure 122/75 Pulse Oximetry 92 08/02/19 05:59 08/02/19 08:00 08/02/19 08:36 Temperature 36.8 C Pulse Rate 85 93 108 H Respiratory Rate 22 H Blood Pressure 162/83 H Pulse Oximetry 93 08/02/19 09:45 08/02/19 09:56 08/02/19 10:00 Temperature Pulse Rate 101 H 97 88 Respiratory Rate 20 20 Blood Pressure Pulse Oximetry 08/02/19 12:00 Temperature 37.2 C Pulse Rate 82 Respiratory Rate 20 Blood Pressure 127/74 Pulse Oximetry 91 Intake/Output Intake/Output: Intake & Output 07/30/19 07/31/19 08/01/19 08/02/19 23:59 23:59 23:59 23:59 Intake Total 2546 860 1650 600 Output Total 1775 3375 2450 800 Balance 771 -2515 -800 -200 Meds/Results Medications: Active Medications Generic Name Dose Route Start Last Admin Trade Name Freq PRN Reason Stop Dose Admin Alprazolam 0.5 mg 07/29/19 10:15 08/02/19 05:58 Xanax PO 0.5 mg Q8HR NATALIE Administration Amlodipine Besylate 5 mg 08/03/19 09:00 Norvasc PO QAM NATALIE Enoxaparin Sodium 40 mg 07/31/19 09:00 08/02/19 08:37 Lovenox SUB-Q 40 mg DAILY NATALIE Administration Famotidine 20 mg 07/30/19 11:10 08/02/19 08:37 Pepcid PO 20 mg Q12HR NATALIE Administration Folic Acid 1 mg 07/27/19 09:00 08/02/19 08:37 Folic Acid PO 1 mg DAILY NATALIE Administration Ipratropium [place] 0.5 mg 07/25/19 08:00 08/02/19 09:45 Atrovent Neb INHALATION 0.5 mg Q6HRT NATALIE Administration Levalbuterol HCl 1.25 mg 07/27/19 02:00 08/02/19 09:45 Xopenex 1.25 Mg/0.5 Ml INHALATION 1.25 mg Q6HRT NATALIE Administration Lorazepam 1 mg 07/26/19 21:34 07/28/19 22:11 Ativan Inj IV PUSH 1 mg Q6H PRN Administration Anxiety Methotre
[2019-08-02] MEDS: BENZOCAINE/MENTHOL (*BKC) 18 EA LOZENGE 1 LOZENGE PO (22:26)
[2019-08-03] VITALS (20 sets, daily range): BP systolic 108–135; BP diastolic 75–91; PULSE 72–105; RESP 16–20; TEMP 36.8–37.6; O2SAT 86–93
[2019-08-03] MEDS: IPRATROPIUM BR 0.02% INH SOLN 0.5 MG/2.5 ML VIAL INHALATION ×3 (01:17→14:22)
[2019-08-03 05:20] LABS: Hematocrit 40.3 % (37.0-47.0); Hemoglobin 13.5 g/dL (12.0-15.0); Mean Corpuscular HGB Conc 33.5 g/dl (32-36); Mean Corpuscular Hemoglobin 30.3 pg (26-34); Mean Corpuscular Volume 90.4 fl (80-100); Mean Platelet Volume 10.1 fl (7.4-10.4); Platelet Count Result 151 k/mm3 (150-375); Red Blood Count 4.46 M/mm3 (4.2-5.4); Red Cell Distribution Width 14.1 % (11.5-14.5); White Blood Count 13.2 K/mm3 (4.5-10.0)
[2019-08-03 05:36] LABS: Blood Urea Nitrogen 23 mg/dL (7-17); Calcium 8.1 mg/dL (8.4-10.2); Carbon Dioxide 36 mmol/L (22-30); Chloride 93 mmol/L (98-107); Estimated Glomerular Filt Rate > 60; Glucose 92 mg/dL (65-105); Potassium 4.9 mmol/L (3.4-5.0); Sodium 133 mmol/L (137-145)
[2019-08-03] MEDS: ALPRAZOLAM 0.5 MG TABLET PO ×2 (05:47→14:06)
[2019-08-03] MEDS: FOLIC ACID 1 MG TABLET PO (09:06)
[2019-08-03] MEDS: QUEtiapine FUMARATE 25 MG TABLET PO (09:07)
[2019-08-03] MEDS: ENOXAPARIN 40 MG/0.4 ML SYRINGE SUB-Q (09:07)
[2019-08-03] MEDS: AMLODIPINE BESYLATE 5 MG TABLET PO (09:07)
[2019-08-03] MEDS: FAMOTIDINE 20 MG TABLET PO (09:07)
[2019-08-03] MEDS: METOPROLOL TARTRATE 50 MG TAB PO (09:08)
--- NOTE | 2019-08-03 10:06 | PM.PNCARD ---
Progress Note: A&P Assessment and Plan (1) Sinus tachycardia: Code(s): R00.0 - Tachycardia, unspecified Status: Acute Assessment and Plan: Heart rate as above (2) PSVT (paroxysmal supraventricular tachycardia): Code(s): I47.1 - Supraventricular tachycardia Status: Acute Assessment and Plan: EF >70% by Echo. Potassium was corrected. Tolerating increased dose of Metoprolol. Only 3 very short burst of SVT. Noted to have sinus tachycardia to 120 with long period of exertional activity. EKG personally reviewed from 08/02/2019 at 10:30:25 sinus rhythm at 95 beats per minute with sinus arrhythmia and short IA interval. PACs are noted. Nonspecific T-wave abnormality in the inferior leads. OK to discharge from cardiac standpoint. See discharge instructions for follow-up. (3) Pneumonia: Qualifiers: Laterality: bilateral Lung location: lower lobe of lung Pneumonia type: due to unspecified organism Qualified Code(s): J18.9 - Pneumonia, unspecified organism Code(s): J18.9 - Pneumonia, unspecified organism Status: Acute Assessment and Plan: Per primary service and per corporate security officer She states she does not use oxygen at home. Wean as able. 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 No new cardiovascular indication for systemic anticoagulation (5) Chronic anticoagulation: Code(s): Z79.01 - USP (current) use of anticoagulants Status: Acute Assessment and Plan: As above. Per primary service (6) Elevated troponin: Code(s): R79.89 - Other specified abnormal findings of blood chemistry Status: Acute Assessment and Plan: Non-TX troponin elevation. Elevated troponins on admission secondary to physiologic stress Reports that she has had a recent negative stress test (7) Hypertension: Code(s): I10 - Essential (primary) hypertension Status: Acute Assessment and Plan: BP improved. Continue amlodipine at 5 mg daily Additional Plan OK to discharge from cardiac standpoint See discharge instructions for follow-up Plan discussed with Dr. Pruitt [id number] 08/03/2019 Time Spent With Patient Time with patient: 15 - 25 minutes Subjective Date/time seen: 08/03/19 10:06 Interval history: Follow-up for: PSVT, sinus tachycardia, pneumonia, history of DVT, elevated troponin, hypertension Date of service: 08/03/2019 Subjective: Talkative. Denied chest discomfort. No shortness of breath with exertional activities. No lightheadedness or palpitations. Review of Systems Constitutional: Constitutional: Denies fatigue, Denies fever(s), Denies frequent falls and Reports weakness Eyes: Eyes: Denies blurry vision ENT: Reports Normal hearing present Cardiovascular: Cardiovascular: Denies chest pain, Denies chest pain with activity, Denies syncope, Denies rapid heart rate, Denies pedal edema, Denies edema, Denies leg edema, Denies lightheadedness and Denies orthopnea Respiratory: Respiratory: Reports cough (Improved) Gastrointestinal: Gastrointestinal: Denies abdominal pain and Denies hematochezia Genitourinary: Genitourinary: Denies hematuria Musculoskeletal: Musculoskeletal: Reports back pain (Has bad DJD of the spine) and Denies arthralgias Integumentary/Breasts: Skin/Breast: Denies rash and Denies wounds Neurologic: Reports Normal hearing present, Denies confusion, Denies syncope, Denies frequent falls and Reports weakness Psychiatric: Psychiatric: Reports anxiety and Denies confusion Endocr
--- NOTE | 2019-08-03 11:04 | PM.PNPUL ---
Progress Note: A&P Assessment and Plan (1) COPD exacerbation: Code(s): J44.1 - Chronic obstructive pulmonary disease with (acute) exacerbation Status: Acute Assessment and Plan: - can be discharged home from pulmonary perspective - can resume all home inhalers/nebulized regimen upon discharge. - f/u with her established outpatient [employer]er Subjective Date/time seen: 08/03/19 11:04 Interval history: Doing well. complains of slight sore throat but otherwise no complaints Review of Systems Review of Systems: All systems reviewed & are unremarkable except as noted in HPI and below Exam Const: General: comfortable and no acute distress Neck: Neck: supple and no JVD Cardio: Rate: regular rate Rhythm: regular rhythm Heart sounds: no gallops and no murmurs GI: Auscultation: normal bowel sounds Neuro: General: gait normal Psych: Affect: normal affect Objective Data Vital Signs Vital Signs: Vital Signs - 24 hr 08/02/19 12:00 08/02/19 13:50 08/02/19 14:00 Temperature 37.2 C 36.9 C Pulse Rate 82 86 87 Respiratory Rate 20 16 16 Blood Pressure 127/74 120/71 Pulse Oximetry 91 96 08/02/19 14:05 08/02/19 16:00 08/02/19 19:57 Temperature Pulse Rate 91 85 76 Respiratory Rate 16 20 Blood Pressure Pulse Oximetry 08/02/19 20:00 08/02/19 21:25 08/02/19 22:00 Temperature 36.9 C Pulse Rate 118 H 76 98 Respiratory Rate 20 Blood Pressure 140/94 H Pulse Oximetry 94 08/03/19 00:00 08/03/19 01:18 08/03/19 01:29 Temperature Pulse Rate 72 88 Respiratory Rate 18 18 Blood Pressure Pulse Oximetry 08/03/19 04:00 08/03/19 06:00 08/03/19 08:26 Temperature 36.8 C Pulse Rate 80 82 88 Respiratory Rate 20 18 Blood Pressure 135/91 H Pulse Oximetry 88 L 08/03/19 08:36 08/03/19 09:08 08/03/19 11:02 Temperature Pulse Rate 91 90 84 Respiratory Rate 18 Blood Pressure Pulse Oximetry 92 Intake/Output Intake/Output: Intake & Output 07/31/19 08/01/19 08/02/19 08/03/19 23:59 23:59 23:59 23:59 Intake Total 860 1650 1140 790 Output Total 2546 9330 1200 Balance -2515 -800 -60 790 Meds/Results Medications: Active Medications Generic Name Dose Route Start Last Admin Trade Name Freq PRN Reason Stop Dose Admin Alprazolam 0.5 mg 07/29/19 10:15 08/03/19 05:47 Xanax PO 0.5 mg Q8HR NATALIE Administration Amlodipine Besylate 5 mg 08/03/19 09:00 08/03/19 09:07 Norvasc PO 5 mg QAM NATALIE Administration Benzocaine 1 lozenge 08/02/19 21:15 08/02/19 22:26 Chloraseptic Lozenge PO 1 lozenge PRN PRN Administration Sore Throat Enoxaparin Sodium 40 mg 07/31/19 09:00 08/03/19 09:07 Lovenox SUB-Q 40 mg DAILY NATALIE Administration Famotidine 20 mg 07/30/19 11:10 08/03/19 09:07 Pepcid PO 20 mg Q12HR NATALIE Administration Folic Acid 1 mg 07/27/19 09:00 08/03/19 09:06 Folic Acid PO 1 mg DAILY NATALIE Administration Ipratropium [place] 0.5 mg 07/25/19 08:00 08/03/19 08:25 Atrovent Neb INHALATION 0.5 mg Q6HRT NATALIE Administration Levalbuterol HCl 1.25 mg 07/27/19 02:00 08/03/19 08:25 Xopenex 1.25 Mg/0.5 Ml INHALATION 1.25 mg Q6HRT NATALIE Administration Lorazepam 1 mg 07/26/19 21:34 07/28/19 22:11 Ativan Inj IV PUSH 1 mg Q6H PRN Administration Anxiety Methotrexate 7.5 mg 07/26/19 09:00 08/02/19 08:36 Methotrexate Tab (*Chemo) PO 7.5 mg We@0900 NATALIE Administration Metoprolol Tartrate 50 mg 08/01/19 21:00 08/03/19 09:08 Lopressor PO 50 mg Q12HR NATALIE Administration Morphine Sulfate 4 mg 07/26/19 21:35 07/29/19 23:29 Morphine Sulfate Inj IV PUSH 4 mg Q2H PRN Administration Pain Rated 7-10 or Air Hunger Quetiapine Fumarate 25 mg 07/29/19 10:14 08/03/19 09:07 Seroquel PO 25 mg Q12HR NATALIE Administration Sodium Chloride 1 applic 07/29/19 21:38 [place] Saline Nasal Gel NASAL 5 TIMES DAILY PRN Dry
--- NOTE | 2019-08-03 13:50 | HOMEO2EVAL ---
Home Oxygen Evaluation RC: Home Oxygen (O2) Evaluation Start: 08/03/19 11:40 Freq: ONCE Status: Active Protocol: RPE Activity Type Activity Date Activity User E-Sign Co-Sign Detail Recorded Client Recorded Date Recorded By Document 08/03/19 13:15 SANJAY [email or web address] 08/03/19 13:50 SANJAY Document 08/03/19 13:17 SANJAY [email or web address] 08/03/19 13:50 SANJAY Document 08/03/19 13:19 SANJAY [email or web address] 08/03/19 13:50 SANJAY Document 08/03/19 13:21 SANJAY [email or web address] 08/03/19 13:50 SANJAY Document 08/03/19 13:49 SANJAY [email or web address] 08/03/19 13:50 SANJAY 08/03/19 08/03/19 08/03/19 13:15 13:17 13:19 Home O2 Evaluation Test Phase Resting Resting Resting Oxygen Delivery Room Air Nasal Cannula Nasal Cannula Oxygen Flow Rate (L/min) 1 2 Pulse Oximetry (90-100 %) 86 L 87 L 90 Home Oxygen Evaluation Comments Treatment Charges O2 Evaluation 08/03/19 08/03/19 13:21 13:49 Home O2 Evaluation Test Phase Exercise Resting Oxygen Delivery Nasal Cannula Nasal Cannula Oxygen Flow Rate (L/min) 2 2 Pulse Oximetry (90-100 %) 92 92 Home Oxygen Evaluation Comments pt requires 2 at rest and with activity/ exertion Treatment Charges
--- NOTE | 2019-08-03 14:04 | WPDPN ---
Objective Data Vital Signs Vital Signs: Vital Signs - 24 hr 08/02/19 14:05 08/02/19 16:00 08/02/19 19:57 Temperature Pulse Rate 91 85 76 Respiratory Rate 16 20 Blood Pressure Pulse Oximetry 08/02/19 20:00 08/02/19 21:25 08/02/19 22:00 Temperature 98.4 F Pulse Rate 118 H 76 98 Respiratory Rate 20 Blood Pressure 140/94 H Pulse Oximetry 94 08/03/19 00:00 08/03/19 01:18 08/03/19 01:29 Temperature Pulse Rate 72 88 Respiratory Rate 18 18 Blood Pressure Pulse Oximetry 08/03/19 04:00 08/03/19 06:00 08/03/19 08:00 Temperature 98.2 F Pulse Rate 80 82 105 H Respiratory Rate 20 Blood Pressure 135/91 H Pulse Oximetry 88 L 08/03/19 08:26 08/03/19 08:36 08/03/19 09:08 Temperature Pulse Rate 88 91 90 Respiratory Rate 18 18 Blood Pressure Pulse Oximetry 08/03/19 11:02 08/03/19 13:15 08/03/19 13:17 Temperature Pulse Rate 84 Respiratory Rate Blood Pressure Pulse Oximetry 92 86 L 87 L 08/03/19 13:19 08/03/19 13:21 08/03/19 13:49 Temperature Pulse Rate Respiratory Rate Blood Pressure Pulse Oximetry 90 92 92 Intake/Output Intake/Output: Intake & Output 07/31/19 08/01/19 08/02/19 08/03/19 23:59 23:59 23:59 23:59 Intake Total 860 1650 1140 790 Output Total 9285 1760 1200 Balance -2515 -800 -60 790 Meds/Results Medications: Active Medications Generic Name Dose Route Start Last Admin Trade Name Freq PRN Reason Stop Dose Admin Alprazolam 0.5 mg 07/29/19 10:15 08/03/19 05:47 Xanax PO 0.5 mg Q8HR NATALIE Administration Amlodipine Besylate 5 mg 08/03/19 09:00 08/03/19 09:07 Norvasc PO 5 mg QAM NATALIE Administration Benzocaine 1 lozenge 08/02/19 21:15 08/02/19 22:26 Chloraseptic Lozenge PO 1 lozenge PRN PRN Administration Sore Throat Enoxaparin Sodium 40 mg 07/31/19 09:00 08/03/19 09:07 Lovenox SUB-Q 40 mg DAILY NATALIE Administration Famotidine 20 mg 07/30/19 11:10 08/03/19 09:07 Pepcid PO 20 mg Q12HR NATALIE Administration Folic Acid 1 mg 07/27/19 09:00 08/03/19 09:06 Folic Acid PO 1 mg DAILY NATALIE Administration Ipratropium [place] 0.5 mg 07/25/19 08:00 08/03/19 08:25 Atrovent Neb INHALATION 0.5 mg Q6HRT NATALIE Administration Levalbuterol HCl 1.25 mg 07/27/19 02:00 08/03/19 08:25 Xopenex 1.25 Mg/0.5 Ml INHALATION 1.25 mg Q6HRT NATALIE Administration Lorazepam 1 mg 07/26/19 21:34 07/28/19 22:11 Ativan Inj IV PUSH 1 mg Q6H PRN Administration Anxiety Methotrexate 7.5 mg 07/26/19 09:00 08/02/19 08:36 Methotrexate Tab (*Chemo) PO 7.5 mg We@0900 NATALIE Administration Metoprolol Tartrate 50 mg 08/01/19 21:00 08/03/19 09:08 Lopressor PO 50 mg Q12HR NATALIE Administration Morphine Sulfate 4 mg 07/26/19 21:35 07/29/19 23:29 Morphine Sulfate Inj IV PUSH 4 mg Q2H PRN Administration Pain Rated 7-10 or Air Hunger Quetiapine Fumarate 25 mg 07/29/19 10:14 08/03/19 09:07 Seroquel PO 25 mg Q12HR NATALIE Administration Sodium Chloride 1 applic 07/29/19 21:38 [place] Saline Nasal Gel NASAL 5 TIMES DAILY PRN Dry Nasal Passages Tramadol HCl 50 mg 07/26/19 11:21 08/02/19 21:24 Ultram PO 50 mg TID PRN Administration Back Pain Radiology Results: ITS Impressions Chest X-Ray 07/29/19 08:12 IMPRESSION: 1. Mild atelectasis in the lower lung zones. 2. Emphysema. High Resolution CT 07/30/19 07:46 IMPRESSION: 1. Severe emphysema. 2. Mild atelectasis in the lower lobes. Labs Labs: Laboratory Results - last 24 hr 08/03/19 08/03/19 05:10 05:10 WBC 13.2 H RBC 4.46 Hgb 13.5 Hct 40.3 MCV 90.4 MCH 30.3 MCHC 33.5 RDW 14.1 Plt Count 151 MPV 10.1 Sodium 133 L Potassium 4.9 Chloride 93 L Carbon Dioxide 36 H BUN 23 H Creatinine 0.40 L Estim Creat Clear Calc Not Reportable Estimated GFR > 60 Glucose 92 Ca
--- NOTE | 2019-08-03 14:15 | PM.DS ---
DS: Diagnosis Admitting Diagnosis Admitting Diagnosis: Acute and chronic respiratory failure, unspecified whether with hypoxia or hypercapnia PATIENT WITH HISTORY OF COPD IS REQUIRING 2 L OXYGEN AT REST AND WITH EXERTION. Discharge Diagnosis (1) Acute exacerbation of chronic obstructive airways disease: Code(s): J44.1 - Chronic obstructive pulmonary disease with (acute) exacerbation Status: Acute Assessment and Plan: 74-year-old female with a past medical history of COPD, who presented to the ER with shortness of breath for the last 3 days. Admitted with acute on chronic respiratory distress secondary to COPD. Pt HR was better breathing better through face mask and transferred out of ICU to IMU. Cxr is improving. again Today patient is feeling better was able to ambulate to the bathroom without getting significant shortness of breath, . Pt states she has quit smoking. EX smoker 40 pk year history. Patient denies any chest pain shortness of breath dizziness palpitation fever or chills at rest, however does get short winded with a significant exertion patient seen by Dr. Reyes being treated with Solu-Medrol updraft symptoms are improving will taper her Solu-Medrol. (2) PSVT (paroxysmal supraventricular tachycardia): Code(s): I47.1 - Supraventricular tachycardia Status: Acute Assessment and Plan: Patient with a proximal supplemental tachycardia most likely secondary to exacerbation of COPD patient is on beta-rayne seen by bulker rate is now controlled unlikely AFib DS: Summary Hospital Course Reason for hospitalization: The patient is a 74-year-old female with a past medical history of COPD, who presented to the ER with shortness of breath for the last 3 days. The patient is a former smoker, who quit smoking about 15 years ago. She has not been hospitalized for respiratory symptoms in over 10 years. Her last COPD exacerbation was in 2006. She has never required intubation due to her respiratory symptoms. The patient reports that for the last 3 days she has had a productive cough of green sputum with some green rhinorrhea as well. She has been having some mildly elevated temperatures up to 99 degrees at home, which occurred the day prior to presentation. She reports that her symptoms were relatively manageable, but then suddenly last night she became acutely more short of breath and came to the ER. She initially thought her symptoms were due to an upper respiratory tract infection and was not all that concerned until her shortness of breath worsened. When the patient arrived to the ER, she was saturating 76% on room air and required 5 L nasal cannula in order to get her oxygen saturations to 93%. She denies any nausea or vomiting. She reports her appetite has been relatively stable. 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 During that period of time, she had lost several pounds, but reports that she has always had a rather relatively thin body habitus. She thinks that her weight has been stable since that time. She denies any chest pain, palpitations, orthopnea, or paroxysmal nocturnal dyspnea. She has not noticed any lower extremity swelling. When she arrived to the ER, her heart rate was in the 120s to 130s, but she remained in sinus rhythm. She does not have any nebulizers at home. She reports her symptoms are improved minimally when she lays down. She recently had a chemical stress test that was reportedly negative. She denies any recent ill contacts. Hospital Course: 74-year-old female with a past medical history of COPD, who presented to the ER with shortness of breath for the last 3 days. Admitted with acute on chronic respiratory distress secondary to COPD. Pt HR was better breathing better through face mask and transferred out of ICU to IMU. Cxr is improving. again Today patient is feeling better was able to ambulate t
== END 2019-08-03 18:20 | disposition home or self-care (01) | DRG 189 ==
LOC: ANHED 02:19 → ANHICU 08:50 → ANH3MEDSUR 08-03 14:15 → ANHICU 08-04 09:02 → ANHIMU 08-04 09:02
PROVIDERS: Family Medicine; Internal Medicine; Physician Assistant; Admitting Provider Internal Medicine; Emergency Provider Emergency Medicine; PCP Family Medicine; Visit Provider Family Medicine
DX: J96.21 Acute and chronic respiratory failure with hypoxia (principal); I47.2 Ventricular tachycardia; Z87.891 Personal history of nicotine dependence; K58.1 Irritable bowel syndrome with constipation; I10 Essential (primary) hypertension; R52 Pain, unspecified; M06.842 Other specified rheumatoid arthritis, left hand; M06.841 Other specified rheumatoid arthritis, right hand; M06.862 Other specified rheumatoid arthritis, left knee; M06.861 Other specified rheumatoid arthritis, right knee; E55.9 Vitamin D deficiency, unspecified; Z86.718 Personal history of other venous thrombosis and embolism; Z90.710 Acquired absence of both cervix and uterus; Z90.79 Acquired absence of other genital organ(s); Z90.722 Acquired absence of ovaries, bilateral; J43.9 Emphysema, unspecified; M51.36 Other intervertebral disc degeneration, lumbar region; K21.9 Gastro-esophageal reflux disease without esophagitis; F41.9 Anxiety disorder, unspecified; Z96.611 Presence of right artificial shoulder joint; E87.6 Hypokalemia; F41.0 Panic disorder [episodic paroxysmal anxiety]
CPT/HCPCS: 36415; 36569; 36600; 71045; 71250; 80048; 80053; 82375; 82805; 83050; 83605; 83735; 83880; 84100; 84484; 85025; 85027; 85610; 85730; 86140; 87040; 87081; 87086; 93005; 93306; 94002; 94003; 94618; 94640; 96365; 96367; 96375; 96376; 97161; 97165; 99285; A9270; C1751; J0456; J0696; J1650; J2060; J2270; J2920; J2930; J3475; J7030; J7050

== ENCOUNTER 2020-06-10 13:36 | Outpatient (CLI) | payer MEDICARE, SELFPAY ==
--- NOTE | ~2020-06-10 | XR_ITS ---
EXAMINATION: XR shoulder LT min 2V DATE: 06/10/2020 14:01 INDICATION: Left shoulder pain. TECHNIQUE: 2 views of left shoulder were obtained. COMPARISON: None. FINDINGS: There is superior subluxation of humeral head with narrowing of the subacromial space and r emodeling of the undersurface of the acromion, consistent with chronic rotator cuff tear with cuff ar thropathy. No fracture. There is severe glenohumeral joint osteoarthritis. There is mild acromioclavi cular joint osteoarthritis. Calcified left lung nodules are consistent with old granulomatous disease . IMPRESSION: 1. Severe left glenohumeral joint osteoarthritis. 2. Chronic left rotator cuff tear with cuff arthropathy. Reviewed, dictated and finalized at location A. T TRIMMER
== END 2020-06-10 13:37 | disposition home or self-care (01) ==
PROVIDERS: PCP Family Medicine; Visit Provider Nurse Practitioner Family
DX: M19.012 Primary osteoarthritis, left shoulder (principal)
CPT/HCPCS: 73030

== ENCOUNTER → 2020-11-18 13:51 | Outpatient (CLI) | payer MEDICARE, SELFPAY ==
--- NOTE | ~2020-11-18 | MR_ITS ---
EXAMINATION: MR thoracic spine wo con DATE: 11/18/2020 15:27 INDICATION: Mid to low back pain. TECHNIQUE: Magnetic resonance imaging (MRI) of the thoracic spine was performed without intravenous c ontrast. Sagittal localizer T1-weighted FSE of the cervical spine was obtained. Thoracic spine sequen amada included sagittal T2-weighted FSE, sagittal T1-weighted FSE, sagittal STIR FSE, and axial T2-weig hted FSE. COMPARISON: Chest CT 07/30/2019, 06/07/07 FINDINGS: There is 10 degrees levoscoliosis of upper thoracic spine and 19 degrees dextroscoliosis of lower thoracic spine. Vertebral body heights are normal and thoracic spine. There is mildly decrease d disc height at T4-T5, T5-T6 and moderately decreased disc height at T8-T9 and T9-T10. At T5-T6, the re is a central protrusion with mild central canal stenosis. At T8-T9, there is a left central protru karl with mild central canal stenosis. At T9-T10, there is a left central extrusion with mild central canal stenosis. At T10-T11, there is a left central protrusion with mild central canal stenosis. At T11-T12, the disc is bulging with mild central canal stenosis. There is multilevel facet joint osteoa rthritis, severe in the lower thoracic spine. There is multilevel mild neural foraminal stenosis bila terally. On the left, there is moderate neural foraminal stenosis at T8-T9, T9-T10, and T11-T12. The spinal cord signal intensity is normal. There is a 2.0 cm nodule in left thyroid lobe, stable from , likely benign. There is atelectasis versus scarring in the lower lobes of the lungs. IMPRESSION: 1. Moderate thoracic spondylosis. 2. Scoliosis. Reviewed, dictated and finalized at location B.
--- NOTE | ~2020-11-18 | MR_ITS ---
EXAMINATION: MR lumbar spine wo/w con DATE: 11/18/2020 15:32 INDICATION: Low back pain. TECHNIQUE: Magnetic resonance imaging (MRI) of the lumbar spine was performed without and with 7 mL M ultiHance intravenous contrast. Sequences included sagittal T2-weighted FSE, sagittal STIR FSE, and s agittal and axial T1-weighted FSE. Postcontrast sequences included axial T2-weighted FSE and axial an d sagittal T1-weighted FS FSE. COMPARISON: chest CT 07/30/19 FINDINGS: There is 42 degrees levoscoliosis of thoracolumbar spine. There is 3 mm retrolisthesis of L 1 on L2, 8 mm retrolisthesis of L2 on L3, 4 mm anterolisthesis of L4 on L5 and L5 on S1. There is a c hronic burst fracture of L1 with 2/5 loss of height and retropulsion of bone 4 mm into central spinal canal. There is a chronic burst fracture of L2 with 3/5 loss of height and retropulsion of bone 3 mm into central spinal canal. There is severely decreased disc height at L1-L2 with fluid in the disc s pace and increased T2-weighted signal intensity and edema of the endplates, consistent with pseudoart hrosis. There is severely decreased disc height at L2-L3 and L4-L5 and mildly decreased disc height a t L3-L4 and L5-S1. There is interbody fusion at L4-L5. 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 The distal spinal cord signal i ntensity is normal. The conus medullaris is at T12-L1. The following disc levels are specifically dis cussed: T12-L1: The disc is bulging. There is moderate bilateral facet joint osteoarthritis. There is mild bi lateral neural foraminal stenosis. There is mild central canal stenosis. L1-L2: The disc is bulging. There is severe bilateral facet joint osteoarthritis. There is severe rig ht and moderate left neural foraminal stenosis. There is mild central canal stenosis. L2-L3: The disc does not extend beyond the endplate margin. There is severe bilateral facet joint ost eoarthritis. There is severe bilateral neural foraminal stenosis. There is mild central canal stenosi s. L3-L4: The disc is bulging. There is severe bilateral facet joint osteoarthritis. There is mild bilat eral neural foraminal stenosis. There is mild central canal stenosis. L4-L5: The disc does not extend beyond the endplate margin. There is severe bilateral facet joint hyp ertrophy. There is mild left neural foraminal stenosis. There is no central canal stenosis. L5-S1: The disc is bulging. There is severe bilateral facet joint osteoarthritis. There is mild bilat eral neural foraminal stenosis. There is mild central canal stenosis. IMPRESSION: 1. Severe lumbar spondylosis. 2. Thoracolumbar levoscoliosis. 3. Anterior and posterior fusion at L4-L5. Reviewed, dictated and finalized at location B.
[2020-11-18 14:48] LABS: Estimated Glomerular Filt Rate > 60
== END ==
PROVIDERS: Visit Provider Nurse Practitioner Family
DX: M47.894 Other spondylosis, thoracic region (principal); M96.1 Postlaminectomy syndrome, not elsewhere classified; M47.896 Other spondylosis, lumbar region; Z98.1 Arthrodesis status
CPT/HCPCS: 72146; 72158; A9577

== ENCOUNTER 2021-01-28 21:49 | Observation (INO) | payer MEDICARE, SELFPAY ==
[2021-01-28] VITALS (15 sets, daily range): BP systolic 112–180; BP diastolic 71–111; PULSE 79–139; RESP 14–30; TEMP 36.6; O2SAT 93–100
--- NOTE | ~2021-01-28 | XR_ITS ---
EXAMINATION: XR chest 1V portable EXAM DATE: 01/28/2021 22:14 INDICATION: Worsening shortness of breath, HX COPD . TECHNIQUE: Portable AP frontal chest x-ray was obtained. Comparison is made to prior examination from 07/29/2019. FINDINGS: The lungs are hyperinflated which can be seen with chronic obstructive pulmonary disease (a clinical diagnosis of functional impairment), but is not diagnostic of it. Some linear regions of ba silar scarring unchanged. No confluent consolidation, pneumothorax or pleural effusion suspected. Car diomediastinal silhouette is normal. There is tortuosity of the aorta. The bones are osteopenic. The re are bony degenerative changes. Right shoulder replacement. Accounting for differences in technique , there is no significant interval change. IMPRESSION: Chronic hyperinflation and basilar scarring. Reviewed, dictated and finalized at location G.
--- NOTE | 2021-01-28 21:51 | ECG_ITS ---
Measurements Intervals [place] Rate: 123 P: 72 PA: 113 QRS: 60 QRSD: 74 T: 68 QT: 246 QTc: 353 Interpretive Statements SINUS TACHYCARDIA WITH SHORT PA INTERVAL ATRIAL PREMATURE COMPLEX NONSPECIFIC T-WAVE ABNORMALITY- HIGH LATERAL LEADS BASELINE ARTIFACT- I, II, III, AVL, AVF ABNORMAL ECG Electronically Signed On 01-29-2021 6:19:18 CDT by Keny Marcos D.O.
--- NOTE | 2021-01-28 22:15 | ED.GENADULT ---
HPI - General Adult General Chief complaint: Shortness of Breath/Dyspnea Stated complaint: short of breath, worsening Time Seen by Provider: 01/28/21 21:58 History of Present Illness HPI narrative: Patient 75-year-old female presents the emergency department with chief complaint of shortness of breath. Patient reports that she has history of COPD and has been treated by her primary doctor and supervisor of way with p.o. steroids and antibiotics has had 2 rounds at home but has been having worsening shortness of breath particularly with exertion. Patient reports whenever she lays still she does completely fine but reports that now she is with any form of activity getting very winded the patient reports she had to use her oxygen more than what she normally uses it and reports that she has had no fever with this. The patient states this feels like a normal exacerbation for her she did report that she had pneumonia and required hospitalization in the past. Related Data Home Medications Medication Instructions Recorded Confirmed diclofenac sodium 50 mg PO TID PRN 07/25/19 07/25/19 folic acid 1 mg PO DAILY 07/25/19 07/25/19 hydroxychloroquine 200 mg PO DAILY 07/25/19 07/25/19 methotrexate sodium 7.5 mg PO WEEKLY 07/25/19 07/25/19 tramadol 50 mg PO TID PRN 07/25/19 07/25/19 Allergies Allergy/AdvReac Type Severity Reaction Status Date / Time No Known Allergies Allergy Unknown Verified 01/28/21 22:04 Review of Systems Review of Systems: Narrative: A 10 system review of systems was completed on the patient and is negative except for what is stated in the HPI. Nursing and ancillary documentation was reviewed. [facility] Past Medical History Medical History Arthritis Asthma Bronchitis COPD (chronic obstructive pulmonary disease) COPD exacerbation 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 Emphysema of lung GERD (gastroesophageal reflux disease) Headache IBS (irritable bowel syndrome) Pneumonia Surgical History Surgical History History of hysterectomy History of spinal surgery History of thumb surgery right History of tubal ligation Hx of appendectomy Family History Family History Mother Arthritis Heart disease Father Cerebrovascular accident Father Hypertension Social History Social History Smoking packs per day: 1 Smoking cigarettes per day: 20.0 Years smoked: 25 Smoking pack-years: 25.00 Smoking status: Former smoker Tobacco type: cigarettes Smoking end date: 07/12/04 Alcohol intake: never Substance use: never Gender identity (if verbalized by the patient): Female Spiritual care concerns: No Agree to blood products: No Exam Narrative: Exam Narrative: GENERAL: Well-appearing, well-nourished, and in no acute distress. HEAD: Normocephalic, atraumatic. EYES: PERRLA and EOMI. ENT: Nares clear, no rhinorrhea or epistaxis. Mucous membranes moist. NECK: Supple. CHEST: Clear to auscultation. Mild respiratory distress. HEART: Regular rate and rhythm. No murmur heard. Normal peripheral pulses. ABDOMEN: Soft, nontender, nondistended, normal active bowel sounds. EXTREMITIES: Normal range of motion. No edema. SKIN: Warm, dry, no rash. NEURO: No focal deficits. Alert and oriented x3. PSYCH: Normal mood and affect. Course Vital Signs Vital signs: Vital Signs Temperature 36.6 C 01/28/21 21:54 Pulse Rate 139 H 01/28/21 21:54 Respiratory Rate 30 H 01/28/21 21:54 Blood Pressure 180/105 H 01/28/21 21:54 Pulse Oximetry 94 01/28/21 21:54 Temperature 36.6 C 01/28/21 21:54 Pulse Rate 79 01/28/21 23:38 Respiratory Rate 17 01/28/21 23:38 Blood Pressure 125/81 01/28/21 23:38 Pulse Oximetry 97 01/28/21 23:38
[2021-01-28] MEDS: IPRATROPIUM BR 0.02% INH SOLN 0.5 MG/2.5 ML VIAL INHALATION (22:31)
[2021-01-28] MEDS: ALBUTEROL SULFATE NEB 2.5 MG/0.5 ML INH 5 MG INHALATION (22:31)
[2021-01-28 22:37] LABS: Basophils Percent Auto 0.4 % (0.2-1.2); Eosinophils Absolute Auto 0.2 K/mm3 (0-0.3); Eosinophils Percent Auto 2.8 % (0-4.4); Hematocrit 39.1 % (37.0-47.0); Hemoglobin 12.5 g/dL (12.0-15.0); Immature Granulocyte Absolute 0.05 K/mm3 (0.00-0.031); Immature Granulocyte Percent A 0.7 % (0-0.5); Lymphocytes Absolute Auto 1.55 K/mm3 (0.9-3.2); Lymphocytes Percent Auto 20.8 % (18.3-44.2); Mean Corpuscular Hemoglobin 29.8 pg (26-34); Mean Corpuscular Volume 93.3 fl (80-100); Mean Platelet Volume 9.6 fl (7.4-10.4); Monocytes Absolute Auto 0.6 K/mm3 (0.1-0.6); Monocytes Percent Auto 8.2 % (2.6-8.5); Neutrophils Percent Auto 67.1 % (45.5-73.1); Platelet Count Result 243 k/mm3 (150-375); Red Blood Count 4.19 M/mm3 (4.2-5.4); Red Cell Distribution Width 14.1 % (11.5-14.5); White Blood Count 7.5 K/mm3 (4.5-10.0)
[2021-01-28] MEDS: methylPREDNISolone SOD SUCC 125 MG VIAL IV PUSH (22:40)
[2021-01-28 22:47] LABS: Anion Gap 7 mmol/L (8-16); Blood Urea Nitrogen 21 mg/dL (7-17); Calcium 9.3 mg/dL (8.4-10.2); Carbon Dioxide 33 mmol/L (22-30); Chloride 101 mmol/L (98-107); Estimated Glomerular Filt Rate > 60; Glucose 94 mg/dL (65-110); Potassium 3.5 mmol/L (3.4-5.0); Sodium 141 mmol/L (137-145)
[2021-01-28 23:00] LABS: NT Pro B Type Natriuretic Pept 264 pg/mL (5-100); Troponin I < 0.012 ng/mL (0.000-0.034)
[2021-01-29] VITALS (29 sets, daily range): BP systolic 131–168; BP diastolic 82–93; PULSE 81–120; RESP 13–21; TEMP 36.1–37; O2SAT 93–97; BMI 19.7
--- NOTE | 2021-01-29 02:11 | ADMGEN ---
This patient, Pamela Gallegos, was admitted to [facility] Surg Room 319-01 at 0200. Patient/family oriented to hospital policies and general routines including ID bracelet, bed and alarms, visiting hours, pain management, procedures, bathroom and other care routines, personal items, smoking policy, room service/diet, and visiting hours. Information on how to activate the Rapid Response Team has been discussed. Patient/Family are encouraged to report perceived risks to care and to ask questions if they do not understand what they are told or what they should do.
--- NOTE | 2021-01-29 02:29 | PM.IMHP ---
H&P: HPI History of Present Illness Date/Time: 01/29/21 02:29 Chief Complaint: SHORTNESS OF BREATH Narrative: THIS IS A 75-YEAR-OLD FEMALE WITH PAST MEDICAL HISTORY SIGNIFICANT FOR COPD /EMPHYSEMA ON SUPPLEMENTAL OXYGEN AT HOME SHE COMES TO THE EMERGENCY ROOM DUE TO WORSENING SHORTNESS OF BREATH ONGOING NOW FOR THE LAST 2 MONTHS OR SO SHE HAS HAD OUTPATIENT TREATMENT WITH ANTIBIOTICS AND ORAL STEROID IS STATES THAT SHE DID WELL FOR A WHILE BUT THEN SHE BECAME AGAIN PROGRESSIVELY WORSE SHE ALSO HAS CHANGED COLOR OF THE SPUTUM TO YELLOWISH S STATES THAT HER PULSE OX HAS REMAINED THE SAME BUT SHE FEELS VERY SHORT OF BREATH THAT HAS BEEN INTERFERING WITH HER DAILY ACTIVITIES. SHE CALLED HER DOCTOR WHO ASKED HER TO COME TO THE EMERGENCY ROOM. SHE DENIES ANY FEVERS RIGORS CHILLS NAUSEA VOMITING DIARRHEA ABDOMINAL PAIN PAIN OR BURNING WITH URINATION NO LEG SWELLING NO SYNCOPE OR NEAR SYNCOPE. PRELIMINARY WORKUP BLOOD GAS WITH A PO2 OF 63. CHEST X-RAY WAS SIGNIFICANT FOR CHRONIC HYPERINFLATION. Review of Systems Review of Systems: Narrative: WORSENING SHORTNESS OF BREATH AND CHANGE IN SPUTUM QUITE Constitutional: Constitutional: Denies chills and Denies fever(s) Eyes: Eyes: Denies change in vision ENT: Denies dysphagia, Denies nasal congestion, Denies nasal discharge, Denies nasal obstruction and Denies odynophagia Cardiovascular: Cardiovascular: Denies claudication, Denies radiating jaw, neck or arm pain, Denies palpitations and Reports dyspnea on exertion Respiratory: Respiratory: Reports change in phlegm color, Reports cough and Reports dyspnea Gastrointestinal: Gastrointestinal: Denies dyspepsia, Denies heartburn, Denies nausea and Denies vomiting Genitourinary: Genitourinary: Reports no additional female genitourinary complaints Musculoskeletal: Musculoskeletal: Reports no additional musculoskeletal complaints Integumentary/Breasts: Skin/Breast: Reports system reviewed and no additional complaints, except as docu Neurologic: Reports system reviewed and no additional complaints, except as documented Psychiatric: Psychiatric: Reports no additional psychiatric complaints Endocrine: Endocrine: Reports no additional endocrine complaints Hematologic/Lymphatic: Hematologic/Lymphatic: Reports no additional hematologic/lymphatic complaints Allergic/Immunologic: Allergic/Immunologic: Reports no additional allergic/immunologic complaints PMFSH Past Medical History Medical History (Updated 01/29/21 @ 02:38 by Arianna Mackay MD) Arthritis Asthma Bronchitis COPD (chronic obstructive pulmonary disease) COPD exacerbation 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 Emphysema of lung GERD (gastroesophageal reflux disease) Headache IBS (irritable bowel syndrome) Pneumonia Surgical History Surgical History History of hysterectomy History of spinal surgery History of thumb surgery right History of tubal ligation Hx of appendectomy Family History Family History Mother Arthritis Heart disease Father Cerebrovascular accident Father Hypertension Social History Social History Smoking packs per day: 1 Smoking cigarettes per day: 20.0 Years smoked: 25 Smoking pack-years: 25.00 Smoking status: Former smoker Alcohol intake: never Substance use: never Gender identity (if verbalized by the patient): Female Spiritual care concerns: No Agree to blood products: No Meds Home Medications and Allergies Home Medications Medication Instructions Recorded Confirmed Type diclofenac sodium 50 mg PO TID PRN 07/25/19 07/25/19 History folic acid 1 mg PO DAILY 07/25/19 07/25/19 History hydroxychloroquine 200 mg PO DAILY 07/25/19 07/25/19 History methotrexate sodium 7.5 mg PO WEEKLY 07/25/19 07/25/19 History tramadol 50
[2021-01-29] MEDS: ALBUTEROL SULFATE NEB 2.5 MG/0.5 ML INH 5 MG INHALATION ×4 (04:08→20:33)
[2021-01-29] MEDS: IPRATROPIUM BR 0.02% INH SOLN 0.5 MG/2.5 ML VIAL INHALATION ×4 (04:08→20:34)
[2021-01-29] MEDS: methylPREDNISolone SOD SUCC 125 MG VIAL 60 MG IV PUSH ×4 (05:24→23:50)
[2021-01-29] MEDS: UMECLIDINIUM BROMIDE 62.5 MCG ELLIPTA 1 PUFF INHALATION (07:56)
[2021-01-29] MEDS: amLODIPine BESYLATE 5 MG TABLET PO (09:28)
[2021-01-29] MEDS: DICLOFENAC SOD 25 MG TABLET.EC 50 MG PO ×2 (12:45→17:19)
--- NOTE | 2021-01-29 16:15 | P.PNIM_ITS ---
Progress Note: A&P Assessment and Plan (1) COPD exacerbation: Code(s): J44.1 - Chronic obstructive pulmonary disease with (acute) exacerbation Status: Acute Assessment and Plan: * complaints of shortness of breath with exertion * chest xray shows Chronic hyperinflation and basilar scarring. * Solumedrol 60mg IV Q6hr * Albuterol nb, atrovent neb symbicort neb * Levequin 750mg IV daily * Supplement o2 * Wean o2 to maintain saturation above 90% * Pulmonology consult thank you for your recommendations (2) Acute and chronic respiratory failure: Qualifiers: Respiratory failure complication: unspecified whether with hypoxia or hypercapnia Qualified Code(s): J96.20 - Acute and chronic respiratory failure, unspecified whether with hypoxia or hypercapnia Code(s): J96.20 - Acute and chronic respiratory failure, unspecified whether with hypoxia or hypercapnia Status: Acute Assessment and Plan: * Supplemental oxygen * Wean to maintain SPO2 > 90% * SPO2 check (3) Arthritis: Code(s): M19.90 - Unspecified osteoarthritis, unspecified site Status: Acute Assessment and Plan: * Continue home diclofenac sodium 50mg PO TID (4) Hypertension: Code(s): I10 - Essential (primary) hypertension Status: Acute Assessment and Plan: * Current BP is 157/89 * Continue home amlodipine 5mg PO daily * Trend blood pressure * Adjust medications as needed (5) Anxiety: Code(s): F41.9 - Anxiety disorder, unspecified Status: Acute Assessment and Plan: * Patient has anxiety issues * Need education about coping * Talked to patient about getting medication from PCP Subjective Date/time seen: 01/29/21 15:35 Interval history: Patient is 75-year-old female with past medical history COPD, emphysema, chronic oxygen use who comes to the ED with worsening shortness of breath. Patient stated that she has been on and off oral antibiotics and steroids which she has been getting from her information security analyst but it has not been helping. She called her information security analyst yesterday about her situation and she got a call back last night who said for her to go to the hospital so she can get better drugs that are stronger for her. Patient stated that she is short of breath with exertion however lying there she is okay. She also stated that she can get really anxious and that will trigger her to have an exacerbations. She listed and named multiple exacerbations, however, she is stating that nothing is making it better. She also stated that she had some information security analyst MDs that would give her medications to have on hand for when she has exacerbations. Currently she does have a cough, but is having a hard time getting up any sputum. She denies chest pain, nausea, vomiting, abdominal pain, numbness and tingling, syncope, or falls. Review of Systems Review of Systems: All systems reviewed & are unremarkable except as noted in HPI and below Exam Const: General: cooperative, comfortable, no acute distress, well developed, alert, awake and ill appearing chronically Nutritional Appearance: thin Orientation/consciousness: patient oriented x3 HENMT: Head: normal to inspection, normocephalic and atraumatic Ears: hearing grossly normal bilaterally General nose exam: Normal external nose present Face and sinus: normal facial exam Mouth: Yes Normal oral and palatal mucosa present Eyes: General: appearance normal, margo
--- NOTE | 2021-01-29 16:15 | PM.IMPN ---
Progress Note: A&P Assessment and Plan (1) COPD exacerbation: Code(s): J44.1 - Chronic obstructive pulmonary disease with (acute) exacerbation Status: Acute Assessment and Plan: complaints of shortness of breath with exertion chest xray shows Chronic hyperinflation and basilar scarring. Solumedrol 60mg IV Q6hr Albuterol nb, atrovent neb symbicort neb Levequin 750mg IV daily Supplement o2 Wean o2 to maintain saturation above 90% Pulmonology consult thank you for your recommendations (2) Acute and chronic respiratory failure: Qualifiers: Respiratory failure complication: unspecified whether with hypoxia or hypercapnia Qualified Code(s): J96.20 - Acute and chronic respiratory failure, unspecified whether with hypoxia or hypercapnia Code(s): J96.20 - Acute and chronic respiratory failure, unspecified whether with hypoxia or hypercapnia Status: Acute Assessment and Plan: Supplemental oxygen Wean to maintain SPO2 > 90% SPO2 check (3) Arthritis: Code(s): M19.90 - Unspecified osteoarthritis, unspecified site Status: Acute Assessment and Plan: Continue home diclofenac sodium 50mg PO TID (4) Hypertension: Code(s): I10 - Essential (primary) hypertension Status: Acute Assessment and Plan: Current BP is 157/89 Continue home amlodipine 5mg PO daily Trend blood pressure Adjust medications as needed (5) Anxiety: Code(s): F41.9 - Anxiety disorder, unspecified Status: Acute Assessment and Plan: Patient has anxiety issues Need education about coping Talked to patient about getting medication from PCP Subjective Date/time seen: 01/29/21 15:35 Interval history: Patient is 75-year-old female with past medical history COPD, emphysema, chronic oxygen use who comes to the ED with worsening shortness of breath. Patient stated that she has been on and off oral antibiotics and steroids which she has been getting from her furniture restorer but it has not been helping. She called her furniture restorer yesterday about her situation and she got a call back last night who said for her to go to the hospital so she can get better drugs that are stronger for her. Patient stated that she is short of breath with exertion however lying there she is okay. She also stated that she can get really anxious and that will trigger her to have an exacerbations. She listed and named multiple exacerbations, however, she is stating that nothing is making it better. She also stated that she had some furniture restorer MDs that would give her medications to have on hand for when she has exacerbations. Currently she does have a cough, but is having a hard time getting up any sputum. She denies chest pain, nausea, vomiting, abdominal pain, numbness and tingling, syncope, or falls. Review of Systems Review of Systems: All systems reviewed & are unremarkable except as noted in HPI and below Exam Const: General: cooperative, comfortable, no acute distress, well developed, alert, awake and ill appearing chronically Nutritional Appearance: thin Orientation/consciousness: patient oriented x3 HENMT: Head: normal to inspection, normocephalic and atraumatic Ears: hearing grossly normal bilaterally General nose exam: Normal external nose present Face and sinus: normal facial exam Mouth: Yes Normal oral and palatal mucosa present Eyes: General: appearance normal, both eyes and all related structures Sclera: sclerae normal Pupils: Equal, round and reactive pupils present EOM: EOMs intact bilaterally Neck: Neck: full ROM, no lymphadenopathy and no JVD Thyroid: thyroid normal Lymphatic: no lymphadenopathy noted Resp: Effort & Inspection: normal respiratory effort, able to speak in complete sentences, not labored, no pursed lip breathing and no retractions Auscultation: diminished lung sounds Cardio: Jugular venous distens
[2021-01-29] MEDS: MORPHINE SULFATE (*CRX) 30 MG TABCR PO (20:19)
[2021-01-30] VITALS (10 sets, daily range): BP systolic 113–150; BP diastolic 73–95; PULSE 83–122; RESP 18–20; TEMP 36.5–36.8; O2SAT 93–97
[2021-01-30] MEDS: ALBUTEROL SULFATE NEB 2.5 MG/0.5 ML INH 5 MG INHALATION ×2 (02:11→08:48)
[2021-01-30] MEDS: IPRATROPIUM BR 0.02% INH SOLN 0.5 MG/2.5 ML VIAL INHALATION ×3 (02:12→14:16)
[2021-01-30 06:39] LABS: Basophils Percent Auto 0.1 % (0.2-1.2); Hematocrit 36.7 % (37.0-47.0); Hemoglobin 11.6 g/dL (12.0-15.0); Immature Granulocyte Absolute 0.04 K/mm3 (0.00-0.031); Immature Granulocyte Percent A 0.5 % (0-0.5); Lymphocytes Percent Auto 4.6 % (18.3-44.2); Mean Corpuscular HGB Conc 31.6 g/dl (32-36); Mean Corpuscular Hemoglobin 29.5 pg (26-34); Mean Corpuscular Volume 93.4 fl (80-100); Mean Platelet Volume 10.1 fl (7.4-10.4); Monocytes Absolute Auto 0.4 K/mm3 (0.1-0.6); Neutrophils Absolute Auto 7.8 K/mm3 (1.3-6.7); Neutrophils Percent Auto 89.8 % (45.5-73.1); Platelet Count Result 217 k/mm3 (150-375); Red Blood Count 3.93 M/mm3 (4.2-5.4); Red Cell Distribution Width 14.2 % (11.5-14.5); White Blood Count 8.6 K/mm3 (4.5-10.0)
[2021-01-30] MEDS: BUMETANIDE INJ 1 MG/4 ML VIAL IV PUSH (06:49)
[2021-01-30] MEDS: methylPREDNISolone SOD SUCC 125 MG VIAL 60 MG IV PUSH (06:50)
[2021-01-30 06:55] LABS: Anion Gap 2 mmol/L (8-16); Blood Urea Nitrogen 19 mg/dL (7-17); Calcium 8.7 mg/dL (8.4-10.2); Carbon Dioxide 32 mmol/L (22-30); Chloride 104 mmol/L (98-107); Estimated Glomerular Filt Rate > 60; Glucose 144 mg/dL (65-110); Sodium 138 mmol/L (137-145)
[2021-01-30] MEDS: MORPHINE SULFATE (*CRX) 30 MG TABCR PO ×2 (06:56→19:58)
--- NOTE | 2021-01-30 07:18 | PM.CNPUL ---
Assessment and Plan Assessment and plan (1) Acute exacerbation of chronic obstructive airways disease: Code(s): J44.1 - Chronic obstructive pulmonary disease with (acute) exacerbation Status: Acute Assessment and Plan: Patient carries a diagnosis of COPD for 20 years with PFTs from 12/19/2004 demonstrating moderate obstructive abnormality, high-resolution CT scan on 07/30/2019 showing severe apical centrilobular and mild apical paraseptal emphysema who is maintained on 2 L oxygen at night and triple inhalers. Patient currently has about a 8 week history of worsening shortness of breath cough and phlegm production who failed to outpatient courses of prednisone and 1 outpatient course of Levaquin. COVID vaccine J and J in 09/2019. Patient is currently admitted for COPD exacerbation on 01/28. I do not see any evidence of fluid overload. Patient has been off methotrexate since to I do not think this is an interstitial lung disease related to methotrexate. Will try to obtain CT scan of the chest report from [facility]. 01/30 Today she tells me she is 50% better, she is no longer wheezing, her phlegm production has decreased and her shortness of breath is better. I will change her Solu-Medrol 60 q.6h to prednisone 50. I will continue albuterol nebs at 2.5 q.6 hours, continue ipratropium 0.5 mg nebs q.6 hours. I will order hold her Symbicort and in cruise as she is on the above-mentioned nebulizers. Patient has no evidence of pneumonia on her CT chest x-ray. I will continue levofloxacin for tracheobronchitis. She states she is having some difficulty bringing up sputum and I will order a flutter valve q.4 hours while awake. I will check a ABG on 2 L to assess for hypercarbia. I will order an overnight oximetry on 2 L to assess oxygenation at night. I will plan on home O2 assessment tomorrow to assess her oxygen needs at rest and with ambulation. Today she tells me that she may be feeling well enough to go home tomorrow so this will be a tentative discharge date. Discussed with Frankie Hamilton. Will follow with you. History of Present Illness History of Present Illness Consult date: 01/30/21 Reason for consult: COPD Chief complaint: COPD Exacerbation Narrative: this is a new pulmonary consult for COPD with hypoxemic respiratory failure 75-year-old with a history of COPD for 20 years, quit tobacco use 15 years ago, on 2 L nasal cannula at night, rheumatoid arthritis previously on methotrexate and hydroxychloroquine until 11/28 presented to the emergency department on 01/28 with shortness of breath, wheezing, and production of increased sputum which had changed color to yellow. For the last 2 months patient has had worsening shortness of breath and about 2 months ago she was given a prednisone taper by her outpatient Pulmonary team at [facility]. She took the prednisone and felt better but 2-3 days after she stopped taking the prednisone she developed worsening shortness of breath. About 2-3 weeks after this she called her pulmonary team with similar complaints and was given prednisone and Levaquin which she finished about 7 days ago. After she completed these medicines her shortness of breath returned, she had wheezing, minimal cough with minimal phlegm production, no hemoptysis no fever no chills no rigors no chest pains. Patient called her doctor and they recommended that she go to the emergency department. Patient presented to the emergency department with a white blood cell count of 7.5, 2.8% eosinophils, a chest x-ray that showed hyperinflation, right greater than left basilar infiltrate versus scarring with no change since 07/29/2019. Patient was admitted for COPD exacerbation and treated with Solu-Medrol, ipratropium nebulizer, albuterol nebulizer and levofloxacin. 01/30 Today the patient tells me that she is 50% better. She states that her shortness of breath is better and she has been able to walk [place]
[2021-01-30] MEDS: amLODIPine BESYLATE 5 MG TABLET PO (09:05)
[2021-01-30] MEDS: DICLOFENAC SOD 25 MG TABLET.EC 50 MG PO ×3 (09:05→17:41)
[2021-01-30] MEDS: UMECLIDINIUM BROMIDE 62.5 MCG ELLIPTA 1 PUFF INHALATION (09:13)
[2021-01-30 11:36] LABS: Alveolar/Arterial O2 Gradient 63.9 mmHg; Base Excess ABG 8.9 mEq/l (+/-2.0); Fractional Inspired Oxygen 24 %; HCO3 ABG 32.6 mEq/l (22.0-26.0); Oxygen Content ABG 17.1 %vol (16.0-22.0); Oxygen Saturation ABG 92.7 % (95.0-100.0); Oxyhemoglobin 90.9 % THb (90.0-100.0); PCO2 ABG 41.1 mmHg (35.0-45.0); PO2 ABG 58.3 mmHg (80.0-100.0); PO2 FiO2 Ratio Arterial Blood 2.43 %; Total Hemoglobin 13.4 g/dL (12.0-18.0)
[2021-01-30 11:37] LABS: Device NASAL CANNULA; Site Drawn RIGHT BRACHIAL; pH ABG 7.517 (7.350-7.450)
[2021-01-30] MEDS: predniSONE 10 MG TABLET 50 MG PO (11:54)
--- NOTE | 2021-01-30 14:11 | PM.IMPN ---
Progress Note: A&P Assessment and Plan (1) COPD exacerbation: Code(s): J44.1 - Chronic obstructive pulmonary disease with (acute) exacerbation Status: Acute Assessment and Plan: complaints of shortness of breath with exertion chest xray shows Chronic hyperinflation and basilar scarring. Solumedrol 60mg IV Q6hr Albuterol nb, atrovent neb Levequin 750mg IV daily Supplement o2 Wean o2 to maintain saturation above 90% Pulmonology consult thank you for your recommendations apneic sleep test for today blood gas respiratory alkalosis pep therapy IS (2) Acute and chronic respiratory failure: Qualifiers: Respiratory failure complication: unspecified whether with hypoxia or hypercapnia Qualified Code(s): J96.20 - Acute and chronic respiratory failure, unspecified whether with hypoxia or hypercapnia Code(s): J96.20 - Acute and chronic respiratory failure, unspecified whether with hypoxia or hypercapnia Status: Acute Assessment and Plan: Supplemental oxygen Wean to maintain SPO2 > 90% SPO2 check (3) Arthritis: Code(s): M19.90 - Unspecified osteoarthritis, unspecified site Status: Acute Assessment and Plan: Continue home diclofenac sodium 50mg PO TID (4) Hypertension: Code(s): I10 - Essential (primary) hypertension Status: Acute Assessment and Plan: Current BP is 113/73 Continue home amlodipine 5mg PO daily Trend blood pressure Adjust medications as needed (5) Anxiety: Code(s): F41.9 - Anxiety disorder, unspecified Status: Acute Assessment and Plan: Patient has anxiety issues Need education about coping Talked to patient about getting medication from PCP Time Spent With Patient Time: 48 minutes Time with patient: Greater than 35 minutes Subjective Date/time seen: 01/30/21 13:31 Interval history: Patient is 75-year-old female with past medical history COPD, emphysema, chronic oxygen use who comes to the ED with worsening shortness of breath. patient states that she feels better today and she feels like she could probably go home tomorrow. She is little bit short of breath when she moves however she did say that she know she is feeling better because she could talk longer without being more short of breath. She also stated that she really wanted to take continue her PEP therapy and the incentive spirometer. Dr. Peter did come and see the patient and would like a couple of test tonight to see if the patient needs her oxygen or if she would need a NIVD. Patient denies chest pain, shortness of breath, nausea, vomiting, diarrhea, constipation, sweats, chills, or fevers Review of Systems Review of Systems: All systems reviewed & are unremarkable except as noted in HPI and below Exam Const: General: cooperative, comfortable, no acute distress, well developed, alert, awake and ill appearing chronically Nutritional Appearance: thin Orientation/consciousness: oriented to person, oriented to place, oriented to time and patient oriented x3 HENMT: Head: normal to inspection, normocephalic and atraumatic Ears: hearing grossly normal bilaterally General nose exam: Normal external nose present Face and sinus: normal facial exam Mouth: Yes Normal oral and palatal mucosa present Eyes: General: appearance normal, both eyes and all related structures Sclera: sclerae normal Pupils: Equal, round and reactive pupils present EOM: EOMs intact bilaterally Neck: Neck: full ROM, no lymphadenopathy and no JVD Thyroid: thyroid normal Lymphatic: no lymphadenopathy noted Resp: Effort & Inspection: normal respiratory effort, able to speak in complete sentences and Actively coughing Auscultation: wheezes and diminished lung sounds Cardio: Jugular venous distension: no JVD Rate: regular rate Rhythm: regular rhythm Heart sounds: S1 normal heart sound present and S2 normal heart soun
[2021-01-30] MEDS: ALBUTEROL SULFATE NEB 2.5 MG/0.5 ML INH INHALATION (14:15)
--- NOTE | 2021-01-30 23:51 | PCRCNOTE ---
Window of time for administration has passed. See next scheduled administration.
[2021-01-31] VITALS (8 sets, daily range): BP systolic 141; BP diastolic 90; PULSE 84–134; RESP 20; TEMP 36.7; O2SAT 86–93
[2021-01-31] MEDS: ALBUTEROL SULFATE NEB 2.5 MG/0.5 ML INH INHALATION (08:40)
[2021-01-31] MEDS: IPRATROPIUM BR 0.02% INH SOLN 0.5 MG/2.5 ML VIAL INHALATION (08:40)
[2021-01-31] MEDS: DICLOFENAC SOD 25 MG TABLET.EC 50 MG PO ×2 (08:52→12:04)
[2021-01-31] MEDS: predniSONE 10 MG TABLET 50 MG PO (08:52)
[2021-01-31] MEDS: amLODIPine BESYLATE 5 MG TABLET PO (08:52)
--- NOTE | 2021-01-31 08:56 | PM.PNPUL ---
Progress Note: A&P Assessment and Plan (1) Acute exacerbation of chronic obstructive airways disease: Code(s): J44.1 - Chronic obstructive pulmonary disease with (acute) exacerbation Status: Acute Assessment and Plan: Patient carries a diagnosis of COPD for 20 years with PFTs from 12/19/2004 demonstrating moderate obstructive abnormality, high-resolution CT scan on 07/30/2019 showing severe apical centrilobular and mild apical paraseptal emphysema who is maintained on 2 L oxygen at night and triple inhalers. Patient currently has about a 8 week history of worsening shortness of breath cough and phlegm production who failed to outpatient courses of prednisone and 1 outpatient course of Levaquin. COVID vaccine J and J in 09/2019. Patient is currently admitted for COPD exacerbation on 01/28. I do not see any evidence of fluid overload. Patient has been off methotrexate since to I do not think this is an interstitial lung disease related to methotrexate. Will try to obtain CT scan of the chest report from [facility]. 01/30 Today she tells me she is 50% better, she is no longer wheezing, her phlegm production has decreased and her shortness of breath is better. I will change her Solu-Medrol 60 q.6h to prednisone 50. I will continue albuterol nebs at 2.5 q.6 hours, continue ipratropium 0.5 mg nebs q.6 hours. I will order hold her Symbicort and in cruise as she is on the above-mentioned nebulizers. Patient has no evidence of pneumonia on her CT chest x-ray. I will continue levofloxacin for tracheobronchitis. She states she is having some difficulty bringing up sputum and I will order a flutter valve q.4 hours while awake. I will check a ABG on 2 L to assess for hypercarbia. I will order an overnight oximetry on 2 L to assess oxygenation at night. I will plan on home O2 assessment tomorrow to assess her oxygen needs at rest and with ambulation. Today she tells me that she may be feeling well enough to go home tomorrow so this will be a tentative discharge date. 01/31 01/31 patient states that she continues to improve and is now close to her baseline. She slept well and has been ambulating in the room. She had an overnight oximetry on 2 L nasal cannula that demonstrated an average saturation of 95%. Lowest saturation 90%. Time with saturation less than or equal to 88% was 0 minutes. She tells me she is ready for discharge today. Ready for discharge from pulmonary perspective on these pulmonary medications: Prednisone 50 mg PO Q day X 6 days Levaquin 750 mg PO Q day X 4 days Symbicort 160/4.5 mcg at 2 puffs b.i.d. Incruse Ellipta 62.5 mcg at 1 puff q.day Rescue albuterol at 2 puffs q.4 hours p.r.n. shortness of breath and wheezing Oxygen 2 L at night Oxygen at rest and with ambulation per home O2 assessment today (I have ordered this test) Follow up in Pulmonary Clinic in 4 weeks. I gave the patient our business card and informed our cow trimmer. Discussed with Frankie Hamilton. Subjective Date/time seen: 01/31/21 08:57 Interval history: 01/30 Narrative: this is a new pulmonary consult for COPD with hypoxemic respiratory failure 75-year-old with a history of COPD for 20 years, quit tobacco use 15 years ago, on 2 L nasal cannula at night, rheumatoid arthritis previously on methotrexate and hydroxychloroquine until 11/28 presented to the emergency department on 01/28 with shortness of breath, wheezing, and production of increased sputum which had changed color to yellow. For the last 2 months patient has had worsening shortness of breath and about 2 months ago she was given a prednisone taper by her outpatient Pulmonary team at [facility]. She took the prednisone and felt better but 2-3 days after she stopped taking the prednisone she developed worsening shortness of breath. About 2-3 weeks after this she called her pulmonary team with similar complaints and was given prednisone and Levaquin which she finishe
[2021-01-31] MEDS: MORPHINE SULFATE (*CRX) 30 MG TABCR PO (08:58)
--- NOTE | 2021-01-31 09:37 | PM.DS ---
DS: Admitting Diagnosis Admitting Diagnosis COPD exacerbation DS: Discharge Diagnosis Discharge Diagnosis (1) COPD exacerbation: Code(s): J44.1 - Chronic obstructive pulmonary disease with (acute) exacerbation Status: Acute Assessment and Plan: complaints of shortness of breath with exertion chest xray shows Chronic hyperinflation and basilar scarring. Solumedrol 60mg IV Q6hr Albuterol nb, atrovent neb Levequin 750mg IV daily Supplement o2 Wean o2 to maintain saturation above 90% Pulmonology consult thank you for your recommendations apneic sleep test for today blood gas respiratory alkalosis pep therapy IS Home O2 eval ordered. patient will be DC with prednisone 50 mg for 6 days, level Floxin 750 for 4 days, 2 L nasal cannula at night patient should follow-up in the pulmonary clinic in 4 weeks. Continue home Symbicort, Incruse, albuterol (2) Acute and chronic respiratory failure: Qualifiers: Respiratory failure complication: unspecified whether with hypoxia or hypercapnia Qualified Code(s): J96.20 - Acute and chronic respiratory failure, unspecified whether with hypoxia or hypercapnia Code(s): J96.20 - Acute and chronic respiratory failure, unspecified whether with hypoxia or hypercapnia Status: Acute Assessment and Plan: Supplemental oxygen Wean to maintain SPO2 > 90% SPO2 check patient will need 2 L nasal cannula at night (3) Arthritis: Code(s): M19.90 - Unspecified osteoarthritis, unspecified site Status: Acute Assessment and Plan: Continue home diclofenac sodium 50mg PO TID (4) Hypertension: Code(s): I10 - Essential (primary) hypertension Status: Acute Assessment and Plan: Current BP is 141/90 Continue home amlodipine 5mg PO daily Trend blood pressure Adjust medications as needed (5) Anxiety: Code(s): F41.9 - Anxiety disorder, unspecified Status: Acute Assessment and Plan: Patient has anxiety issues Need education about coping Talked to patient about getting medication from PCP DS: Summary Hospital Course Hospital Course: Patient is 75-year-old female with past medical history COPD, emphysema, chronic oxygen use who comes to the ED with worsening shortness of breath. upon admission patient was started on IV antibiotics and steroids. Pulmonology was consulted for her and recommendations were given. Patient will also need to follow-up with pulmonology in 4 weeks in the clinic. I did discuss with the patient about seeing if her PCP will give her anything for anxiety to help with that. I educated the patient about triggers and avoiding triggers that could flare of her COPD. Upon admission her white blood cell count was 7.5 hemoglobin hematocrit were 12.5/39.1 platelets were 243, sodium was 141 potassium was 135 BUN and creatinine have been stable at 21 and 0.6. All labs upon discharge have been stable as well. chest ray also showed chronic hyperinflation and basilar scarring. Patient currently denies chest pain, shortness of breath, nausea, vomiting, diarrhea, constipation, abdominal pain, headaches, weakness, abnormal swelling, or fatigue. Time spent discussing smoking cessation with patient: more than 10 minutes Status at Discharge Functional status at discharge: independent ambulation Overall status at discharge: patient is progressing back to baseline Time Spent with Patient Time attestation: Total time spent providing and/or coordinating discharge services: 42 minutes Time spent: Greater than 30 minutes Specific discharge activities: chart review, lab review, diagnostic testing, physical exam, ordering, documentation, education P Exam Const: General: cooperative, comfortable, no acute distress, well developed, alert, awake and ill appearing chronically Nutritional Appearance: thin Orientation/consciousness: oriented to pe
[2021-01-31 09:48] LABS: Hematocrit 41.6 % (37.0-47.0); Hemoglobin 13.6 g/dL (12.0-15.0); Mean Corpuscular HGB Conc 32.7 g/dl (32-36); Mean Corpuscular Volume 91.8 fl (80-100); Mean Platelet Volume 10.2 fl (7.4-10.4); Platelet Count Result 277 k/mm3 (150-375); Red Blood Count 4.53 M/mm3 (4.2-5.4); Red Cell Distribution Width 14.3 % (11.5-14.5)
--- NOTE | 2021-01-31 10:38 | PCRCNOTE ---
HOME O2 EVAL DONE, PT REQUIRES 1 L WITH ACTIVITY, 2L AT NIGHT, ROOM AIR AT REST. PT HAS A PORTABLE O2 CONCENTRATOR, ALL REQUIRED HOEM O2 EQUIPMENT AT HOME. PT WILL BRING O2 IN CARE AT D/C.
[2021-01-31 10:52] LABS: Alanine Aminotransferase 22 U/L (4-35); Alkaline Phosphatase 63 U/L (38-126); Anion Gap 7 mmol/L (8-16); Aspartate Amino Transferase 25 U/L (14-36); Bilirubin,Total 0.7 mg/dL (0.2-1.3); Blood Urea Nitrogen 24 mg/dL (7-17); Carbon Dioxide 34 mmol/L (22-30); Chloride 97 mmol/L (98-107); Estimated Glomerular Filt Rate > 60; Glucose 122 mg/dL (65-110); Potassium 3.7 mmol/L (3.4-5.0); Sodium 138 mmol/L (137-145)
--- NOTE | 2021-01-31 15:31 | PC.NURSE ---
1330 01/31/21 Patients home medications returned.
== END 2021-01-31 13:43 | disposition home or self-care (01) ==
LOC: ANHED 01-29 00:20 → ANH3MEDSUR 01-29 00:47
PROVIDERS: Family Medicine; Internal Medicine Pulmonary Disease; Nurse Practitioner; Admitting Provider Internal Medicine; Emergency Provider Emergency Medicine; PCP Family Medicine; Visit Provider Internal Medicine
DX: J44.1 Chronic obstructive pulmonary disease with (acute) exacerbation (principal); J44.0 Chronic obstructive pulmonary disease with (acute) lower respiratory infection; J96.20 Acute and chronic respiratory failure, unspecified whether with hypoxia or hypercapnia; J44.9 Chronic obstructive pulmonary disease, unspecified; I10 Essential (primary) hypertension; F41.9 Anxiety disorder, unspecified; M19.90 Unspecified osteoarthritis, unspecified site; Z99.81 Dependence on supplemental oxygen; Z87.891 Personal history of nicotine dependence
CPT/HCPCS: 36415; 36600; 71045; 80048; 80053; 82805; 83880; 84484; 85025; 85027; 93005; 94618; 94640; 94762; 96365; 96374; 96375; 96376; 99285; A9270; G0378; J1956; J2930; J7512

== ENCOUNTER 2021-05-21 12:14 | Outpatient (CLI) | payer MEDICARE, SELFPAY ==
[2021-05-21 13:30] VITALS: PULSE 99; O2SAT 90
[2021-05-21 13:35] VITALS: PULSE 107; O2SAT 86
[2021-05-21 13:40] VITALS: PULSE 112; O2SAT 90
[2021-05-21 13:45] VITALS: PULSE 98; O2SAT 90
--- NOTE | 2021-05-21 14:08 | HOMEO2EVAL ---
Evaluation was performed at [facility] Home Oxygen Evaluation RC: Home Oxygen (O2) Evaluation Start: 05/21/21 14:02 Freq: ONCE Status: Active Protocol: RPE Activity Type Activity Date Activity User E-Sign Co-Sign Detail Recorded Client Recorded Date Recorded By Document 05/21/21 13:30 KMV [email or web address] 05/21/21 14:06 KMV Document 05/21/21 13:35 KMV [email or web address] 05/21/21 14:06 KMV Document 05/21/21 13:40 KMV [email or web address] 05/21/21 14:07 KMV Document 05/21/21 13:45 KMV [email or web address] 05/21/21 14:07 KMV 05/21/21 05/21/21 05/21/21 13:30 13:35 13:40 Home O2 Evaluation Test Phase Resting Exercise Exercise Oxygen Delivery Room Air Room Air Nasal Cannula Oxygen Flow Rate (L/min) 2 Pulse Oximetry (90-100 %) 90 86 L 90 Pulse Rate (60-100 beats/min) 99 107 H 112 H Activity Tolerance Good Ambulation Distance (feet) 120 Treatment Charges O2 Evaluation - Outpatient 05/21/21 13:45 Home O2 Evaluation Test Phase Resting Oxygen Delivery Room Air Oxygen Flow Rate (L/min) Pulse Oximetry (90-100 %) 90 Pulse Rate (60-100 beats/min) 98 Activity Tolerance Ambulation Distance (feet) Treatment Charges
--- NOTE | 2021-05-22 14:03 | WPDPFTINT ---
PFT Procedure Performed PFT Procedure Performed Spirometry with Pre/Post Bronchodilator Plethysmography (Lung Vol) Diffusing Cap (DLCO) Flow Vol Loop PFT Interpretation Lung volumes were measured with the body plethysmography method. The elevated total lung capacity is indicative of lung hyperinflation, and the elevated FRC and RV are indicative of air trapping. Spirometry showed diminished expiratory flow rates and a diminished FEV1 to FVC ratio of 29% consistent with obstructive airway disease. Following administration of a bronchodilator there was no significant increase in expiratory flow rates. Lung diffusion capacity is severely reduced at 38% predicted. The flow volume loop is consistent with severe emphysema. Impression: Very severe obstructive airway disease with lung hyperinflation, air trapping and no response to bronchodilators on this testing. Severely reduced lung diffusion capacity.
== END 2021-05-21 12:15 | disposition home or self-care (01) ==
PROVIDERS: PCP Family Medicine; Visit Provider Nurse Practitioner
DX: J44.9 Chronic obstructive pulmonary disease, unspecified (principal); R94.2 Abnormal results of pulmonary function studies
CPT/HCPCS: 94060; 94618; 94726; 94729

== ENCOUNTER 2022-04-10 12:38 | Emergency (ER) | payer MEDICARE, SELFPAY ==
[2022-04-10] VITALS (23 sets, daily range): BP systolic 119–158; BP diastolic 73–121; PULSE 83–120; RESP 12–29; TEMP 36.5; O2SAT 92–97
--- NOTE | ~2022-04-10 | XR_ITS ---
XR chest 2V 04/10/2022 13:38 Indication: Shortness of breath. COPD. Procedure: AP portable chest Comparison: Comparison to multiple prior studies sequentially, with oldest reviewed study dated 07/28. Findings: The lungs are hyperinflated which is consistent with, but not diagnostic of chronic obstruc tive pulmonary disease. Chronic bibasilar linear infiltrates, most likely atelectasis/scarring. There is a right shoulder arthroplasty. There is osteolysis distal aspect of the left clavicle, possibly p osttraumatic. There are advanced degenerative changes of the left glenohumeral joint. Impression: 1: Chronic bibasilar infiltrates, most likely atelectasis/scarring. Reviewed, dictated and finalized at location B. Impression: 1: Chronic bibasilar infiltrates, most likely atelectasis/scarring.
--- NOTE | 2022-04-10 12:46 | ECG_ITS ---
Measurements Intervals [place] Rate: 91 P: 58 [place]: 114 QRS: 57 QRSD: 82 T: 0 QT: 197 QTc: 243 Interpretive Statements SINUS RHYTHM WITH SHORT [place] INTERVAL ATRIAL PREMATURE COMPLEXES BORDERLINE ST ABNORMALITY- INFERIOR LEADS BASELINE ARTIFACT- I, II, AVR, AVL, V3-V5 BORDERLINE ECG COMPARED TO ECG 01/28/2021 21:58:35 SINUS RHYTHM NOW PRESENT Electronically Signed On 04-10-2022 13:34:32 CDT by Keny Marcos D.O.
[2022-04-10 13:19] LABS: Basophils Percent Auto 0.4 % (0.2-1.2); Eosinophils Absolute Auto 0.2 K/mm3 (0-0.3); Eosinophils Percent Auto 4.1 % (0-4.4); Hematocrit 41.4 % (37.0-47.0); Hemoglobin 13.7 g/dL (12.0-15.0); Immature Granulocyte Absolute 0.01 K/mm3 (0.00-0.031); Immature Granulocyte Percent A 0.2 % (0-0.5); Lymphocytes Absolute Auto 0.88 K/mm3 (0.9-3.2); Lymphocytes Percent Auto 17.8 % (18.3-44.2); Mean Corpuscular HGB Conc 33.1 g/dl (32-36); Mean Corpuscular Hemoglobin 30.9 pg (26-34); Mean Corpuscular Volume 93.2 fl (80-100); Mean Platelet Volume 9.7 fl (7.4-10.4); Monocytes Absolute Auto 0.4 K/mm3 (0.1-0.6); Monocytes Percent Auto 7.9 % (2.6-8.5); Neutrophils Absolute Auto 3.4 K/mm3 (1.3-6.7); Neutrophils Percent Auto 69.6 % (45.5-73.1); Platelet Count Result 248 k/mm3 (150-375); Red Blood Count 4.44 M/mm3 (4.2-5.4); Red Cell Distribution Width 12.4 % (11.5-14.5); White Blood Count 4.9 K/mm3 (4.5-10.0)
[2022-04-10 13:31] LABS: Alanine Aminotransferase 20 U/L (6-35); Albumin Level 4.5 g/dL (3.5-5.1); Alkaline Phosphatase 83 U/L (38-126); Anion Gap 11 mmol/L (8-16); Aspartate Amino Transferase 25 U/L (14-36); Bilirubin,Total 0.3 mg/dL (0.2-1.3); Blood Urea Nitrogen 13 mg/dL (7-17); Calcium 9.2 mg/dL (8.4-10.2); Carbon Dioxide 29 mmol/L (22-30); Chloride 101 mmol/L (98-107); Estimated Glomerular Filt Rate > 60; Glucose 105 mg/dL (65-110); Potassium 3.7 mmol/L (3.4-5.0); Sodium 141 mmol/L (137-145)
--- NOTE | 2022-04-10 13:50 | ED.SOB ---
HPI - SOB/Dyspnea General Chief Complaint: Shortness of Breath/Dyspnea Stated Complaint: sob, copd Time Seen by Provider: 04/10/22 13:12 Source: patient and RN notes reviewed Mode of arrival: ambulatory Limitations: no limitations History of Present Illness HPI Narrative: This is a 76 year old female with history of COPD, chronic respiratory failure on home oxygen who presents for evaluation f shortness of breath. Patient states her COPD has continued to worsen. She was wearing oxygen only at night but over the past 1-2 months she is also wearing during the day. Approximately 2 months ago , her funeral greeter placed her on 5 days of prednisone. She has shortness of breath with minimal exertion for the past 1 month. She using albuterol inhaler at home. She does not using nebulizer machine. She denies fever, chill, nausea, vomiting or chest pain. she reports chronic cough with small amount of phlegm. Patient came to ER for steroids. Related Data Home Medications Medication Instructions Recorded Confirmed diclofenac sodium 50 mg 50 mg PO TID 07/25/19 01/14/22 tablet,delayed release albuterol 90 mcg/actuation aerosol 2 mcg inhalation QID 01/29/21 01/14/22 inhaler budesonide-formoterol HFA 160 2 puff inhalation Q12H 01/29/21 01/14/22 mcg-4.5 mcg/actuation aerosol inhaler (Symbicort) umeclidinium 62.5 mcg/actuation 1 inh inhalation DAILY 01/29/21 01/14/22 blister powder for inhalation (Incruse Ellipta) hydrocodone 10 mg-acetaminophen 2 tablet PO BID 12/09/21 01/14/22 325 mg tablet naloxegol 25 mg tablet (Movantik) 25 tablet PO DAILY 12/09/21 01/14/22 Allergies Allergy/AdvReac Type Severity Reaction Status Date / Time No Known Allergies Allergy Unknown Verified 01/14/22 13:57 Review of Systems Review of Systems: All systems reviewed & are unremarkable except as noted in HPI and below Constitutional: Constitutional: Denies chills, Denies fatigue and Denies fever(s) ENT: Denies nasal congestion and Denies sore throat Cardiovascular: Cardiovascular: Denies chest pain and Denies rapid heart rate Respiratory: Respiratory: Reports cough and Reports dyspnea Gastrointestinal: Gastrointestinal: Denies abdominal pain, Denies diarrhea, Denies nausea and Denies vomiting PMFSH Past Medical History Medical History Arthritis Asthma Bronchitis COPD (chronic obstructive pulmonary disease) COPD exacerbation 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 Emphysema of lung GERD (gastroesophageal reflux disease) Headache IBS (irritable bowel syndrome) Pneumonia Surgical History Surgical History History of hysterectomy History of spinal surgery History of thumb surgery right History of tubal ligation Hx of appendectomy Family History Family History Mother Arthritis Heart disease Father Cerebrovascular accident Father Hypertension Social History Social History (Updated 03/06/21 @ 15:04 by May Nickerson CMA) Smoking packs per day: 1 Smoking cigarettes per day: 20.0 Years smoked: 30 Smoking pack-years: 30.00 Smoking status: Former smoker Tobacco type: cigarettes Smoking end date: 07/12/00 Alcohol intake: never Substance use: never Substance use type: does not use Gender identity (if verbalized by the patient): Female Spiritual care concerns: No Agree to blood products: No Exam Const: General: no acute distress and alert Nutritional Appearance: thin Orientation/consciousness: patient oriented x3 Limitations: no limitations HENMT: Head: normal to inspection Eyes: EOM: EOMs intact bilaterally Resp: Effort & Inspection: normal respiratory effort Auscultation: clear to auscultation bilaterally Other: patient is talkative and able to speak in complete sentences Cardio: Rate
[2022-04-10 14:17] LABS: Base Excess ABG 3.6 mEq/l (+/-2.0); Carboxyhemoglobin 0.2 % THb (0-2.0); Fractional Inspired Oxygen 28 %; HCO3 ABG 28.1 mEq/l (22.0-26.0); Methemoglobin ABG 0.2 %THb (0-1.5); Oxygen Content ABG 18.3 %vol (16.0-22.0); Oxygen Saturation ABG 95.3 % (95.0-100.0); Oxyhemoglobin 94.2 % THb (90.0-100.0); PCO2 ABG 42.2 mmHg (35.0-45.0); PO2 ABG 73.8 mmHg (80.0-100.0); PO2 FiO2 Ratio Arterial Blood 2.64 %; Reduced Hemoglobin 5.4 %THb (0-5.0); Total Hemoglobin 13.8 g/dL (12.0-18.0); pH ABG 7.442 (7.350-7.450)
[2022-04-10 14:18] LABS: Device NASAL CANNULA; Liters per Minute 1.5 LPM; Modified Allen's Test Pass; Site Drawn LEFT BRACHIAL
[2022-04-10] MEDS: predniSONE 20 MG TABLET 40 MG PO (14:18)
[2022-04-10] MEDS: ALBUTEROL SULFATE (*SP) AEROSOL 1 PUFF 4 PUFF INHALATION (14:51)
== END 2022-04-10 15:33 | disposition home or self-care (01) ==
PROVIDERS: Emergency Medicine; Emergency Provider General Practice; PCP Family Medicine
DX: J44.1 Chronic obstructive pulmonary disease with (acute) exacerbation (principal); J96.10 Chronic respiratory failure, unspecified whether with hypoxia or hypercapnia; Z99.81 Dependence on supplemental oxygen; K21.9 Gastro-esophageal reflux disease without esophagitis; K58.9 Irritable bowel syndrome, unspecified; Z79.51 Long term (current) use of inhaled steroids; Z79.1 Long term (current) use of non-steroidal anti-inflammatories (NSAID); Z79.891 Long term (current) use of opiate analgesic; Z87.891 Personal history of nicotine dependence
CPT/HCPCS: 36415; 36600; 71046; 80053; 82375; 82805; 83050; 85025; 93005; 99284; A9270; J7512

== ENCOUNTER 2022-08-01 09:13 | Inpatient (IN) | payer MEDICARE, SELFPAY ==
[2022-08-01] VITALS (24 sets, daily range): BP systolic 106–142; BP diastolic 72–91; PULSE 91–142; RESP 15–33; TEMP 36.3–36.6; O2SAT 90–100; BMI 21.5
--- NOTE | 2022-08-01 | ECHO_ITS ---
Patient Info Name: Pamela Gallegos Age: 77 years : 1945 Gender: Female Ht: 59 in Wt: 100 lbs BSA: 1.38 m2 HR: 107 bpm BP: 122 / 88 mmHg Heart Rhythm: Sinus Rhythm, Tachycardia Technical Quality: Poor Exam Date: 08/01/2022 1:20 PM Exam Location: [facility] Patient Status: Inpatient Admit Date: 08/01/2022 Staff Ordering Physician: Felice Rivera MD Floor Tech: Tamra Severino RDCS Attending Provider: Felice Rivera MD Exam Type: CA echo dop color flow w con Study Info Indications I48.1 - Persistent atrial fibrillation Complete two-dimensional, color flow and Doppler transthoracic echocardiogram is performed with contrast to opacify the left ventricle and to improve the deliniation of the left ventricle endocardial borders. Contrast/Agitated Saline Contrast/Ag. Saline: Definity Amount: --- ml Administered By: Tamra Severino RDCS Reason for Poor Study: patient body habitus Summary 1. Technically difficult study with limited views. Definity contrast administered. 2. Left ventricular chamber dimension is normal. 3. Left ventricular systolic function is moderately reduced, estimated at 40-45% with hypokinesis of the apical septum. 4. There is no increased left ventricular wall thickness. 5. The left ventricular diastolic function is abnormal. 6. There is no aortic valve stenosis. 7. There is trace mitral valve regurgitation. 8. There is mild tricuspid valve regurgitation. 9. Mild pulmonary hypertension, estimated pulmonary arterial systolic pressure is 42 mmHg. Left Ventricle Left ventricular chamber dimension is normal. Left ventricular systolic function is moderately reduced, estimated at 40-45% with hypokinesis of the apical septum. There is no increased left ventricular wall thickness. The left ventricular diastolic function is abnormal. Technically difficult study with limited views. Definity contrast administered. Right Ventricle Right ventricular chamber dimension is normal. Right ventricular systolic function is normal. Left Atria Left atrial chamber dimension is normal. Right Atria Right atrial chamber dimension is normal. Aortic Valve The aortic valve is not well visualized. There is no aortic valve stenosis. There is no aortic valve regurgitation. Pulmonic Valve The pulmonic valve is not well visualized. Mitral Valve The mitral valve has thickened leaflets. There is trace mitral valve regurgitation. The mitral valve annulus is moderately calcified. Tricuspid Valve The tricuspid valve leaflets are normal. There is mild tricuspid valve regurgitation. Mild pulmonary hypertension, estimated pulmonary arterial systolic pressure is 42 mmHg. Pericardium/Pleural The pericardium appears normal. There is a small pericardial effusion with fibrinous material within the pericardial space. Inferior Vena Cava Normal inferior vena cava with >50% collapse upon inspiration consistent with normal right atrial pressure, 5 mmHg. Aorta The aortic root size at the sinus of Valsalva is normal. There is mild aortic atherosclerosis. Left Ventricular Outflow Tract Name Value Normal LVOT 2D LVOT Diameter
--- NOTE | ~2022-08-01 | XR_ITS ---
EXAMINATION: XR chest 1V portable DATE: 08/01/2022 10:22 INDICATION: Shortness of breath. TECHNIQUE: A single frontal view of the chest was obtained. COMPARISON: Chest 2 views 04/10/2022, chest CT 07/30/2019 FINDINGS: There are lucencies in the lungs, consistent with emphysema. There is mild atelectasis vers us scarring in the lower lung zones. No pleural effusion or pneumothorax. The heart size is normal. T here is a total right shoulder arthroplasty. IMPRESSION: 1. Severe emphysema. 2. Mild atelectasis versus scarring in the lower lung zones. Reviewed, dictated and finalized at location A. LITATOR
--- NOTE | 2022-08-01 09:16 | ECG_ITS ---
Measurements Intervals [place] Rate: 124 P: RI: 0 QRS: 49 QRSD: 76 T: 46 QT: 298 QTc: 428 Interpretive Statements ATRIAL FIBRILLATION WITH RAPID VENTRICULAR RESPONSE BASELINE ARTIFACT- I, II, III, AVR, AVL, AVF, V1-V6 ABNORMAL ECG COMPARED TO ECG 04/10/2022 12:56:20 ATRIAL FIBRILLATION NOW PRESENT Electronically Signed On 08-01-2022 10:10:12 [employer] by Keny Marcos D.O.
[2022-08-01 09:31] LABS: Alveolar/Arterial O2 Gradient 312.1 mmHg; Base Excess ABG 1.9 mEq/l (+/-2.0); Device NON-INVASIVE VENT; Fractional Inspired Oxygen 100 %; HCO3 ABG 28.3 mEq/l (22.0-26.0); Methemoglobin ABG 0.2 %THb (0-1.5); Modified Allen's Test Pass; Oxygen Content ABG 20.1 %vol (16.0-22.0); Oxygen Saturation ABG 99.7 % (95.0-100.0); Oxyhemoglobin 98.1 % THb (90.0-100.0); PCO2 ABG 51.4 mmHg (35.0-45.0); PO2 ABG 349.5 mmHg (80.0-100.0); PO2 FiO2 Ratio Arterial Blood 3.49 %; Reduced Hemoglobin 0.7 %THb (0-5.0); Site Drawn LEFT RADIAL; Total Hemoglobin 13.9 g/dL (12.0-18.0); pH ABG 7.359 (7.350-7.450)
[2022-08-01 09:32] LABS: Non-Invasive Expiratory Pressure 6 CMH2O; Non-Invasive Inspiratory Pressure 12 CMH2O; Non-Invasive Vent Rate 12 /MIN
[2022-08-01] MEDS: methylPREDNISolone SOD SUCC 125 MG VIAL IV PUSH (09:51)
[2022-08-01 09:54] LABS: Basophils Percent Auto 0.1 % (0.2-1.2); Eosinophils Absolute Auto 0.1 K/mm3 (0-0.3); Eosinophils Percent Auto 1.7 % (0-4.4); Hematocrit 39.9 % (37.0-47.0); Hemoglobin 12.9 g/dL (12.0-15.0); Immature Granulocyte Absolute 0.03 K/mm3 (0.00-0.031); Immature Granulocyte Percent A 0.4 % (0-0.5); Lymphocytes Absolute Auto 1.11 K/mm3 (0.9-3.2); Lymphocytes Percent Auto 14.6 % (18.3-44.2); Mean Corpuscular HGB Conc 32.3 g/dl (32-36); Mean Corpuscular Hemoglobin 29.9 pg (26-34); Mean Corpuscular Volume 92.6 fl (80-100); Mean Platelet Volume 10.1 fl (7.4-10.4); Monocytes Absolute Auto 0.5 K/mm3 (0.1-0.6); Neutrophils Absolute Auto 5.9 K/mm3 (1.3-6.7); Neutrophils Percent Auto 77.2 % (45.5-73.1); Platelet Count Result 233 k/mm3 (150-375); Red Blood Count 4.31 M/mm3 (4.2-5.4); Red Cell Distribution Width 12.8 % (11.5-14.5); White Blood Count 7.6 K/mm3 (4.5-10.0)
[2022-08-01 10:08] LABS: Lactic Acid Reflex 1.4 mmol/L (0.7-2.0)
[2022-08-01 10:09] LABS: Alanine Aminotransferase 21 U/L (6-35); Albumin Level 3.8 g/dL (3.5-5.1); Alkaline Phosphatase 82 U/L (38-126); Anion Gap 3 mmol/L (8-16); Aspartate Amino Transferase 28 U/L (14-36); Bilirubin,Total 0.5 mg/dL (0.2-1.3); Blood Urea Nitrogen 16 mg/dL (7-17); Calcium 8.2 mg/dL (8.4-10.2); Carbon Dioxide 33 mmol/L (22-30); Chloride 101 mmol/L (98-107); Estimated Glomerular Filt Rate > 60; Glucose 159 mg/dL (65-110); Potassium 4.1 mmol/L (3.4-5.0); Sodium 137 mmol/L (137-145)
[2022-08-01 10:30] LABS: Influenza A QL RT-PCR Negative (Negative); Influenza B QL RT-PCR Negative (Negative); SARS-CoV-2 RNA PCR Negative
--- NOTE | 2022-08-01 10:56 | PC.NURSE ---
Respiratory at bedside per patient request for different BiPAP Mask. Patient made comfortable and no questions or concerns at this time.
--- NOTE | 2022-08-01 11:13 | ED.SOB ---
HPI - SOB/Dyspnea General Chief Complaint: Shortness of Breath/Dyspnea Stated Complaint: SOB History of Present Illness HPI Narrative: Patient is a 77-year-old female who presents ER shortness of breath. Has had progressive shortness of breath with wheezing and cough for the last 3 days. No fevers chills or sweats. No chest pain or chest pressure. Was sleeping with her CPAP and when she took it off she became markedly distressed. Related Data Home Medications Medication Instructions Recorded Confirmed diclofenac sodium 50 mg 50 mg PO TID 07/25/19 08/01/22 tablet,delayed release umeclidinium 62.5 mcg/actuation 1 inh inhalation DAILY 01/29/21 08/01/22 blister powder for inhalation (Incruse Ellipta) albuterol sulfate 90 mcg/actuation 2 puff inhalation Q4H PRN 08/01/22 08/01/22 aerosol inhaler Shortness Of Breath alprazolam 0.25 mg tablet 0.25 mg PO TID PRN Anxiety 08/01/22 08/01/22 amlodipine 10 mg tablet 10 mg PO DAILY 08/01/22 08/01/22 arformoterol 15 mcg/2 mL solution 2 ml inhalation DAILY 08/01/22 08/01/22 for nebulization clonazepam 0.5 mg tablet 0.5 mg PO BID 08/01/22 08/01/22 Allergies Allergy/AdvReac Type Severity Reaction Status Date / Time No Known Allergies Allergy Unknown Verified 08/01/22 15:29 Review of Systems Review of Systems: All systems reviewed & are unremarkable except as noted in HPI and below Constitutional: Constitutional: Denies chills and Denies fever(s) ENT: Denies nasal congestion and Denies sore throat Cardiovascular: Cardiovascular: Denies chest pain, Denies rapid heart rate and Denies radiating jaw, neck or arm pain Respiratory: Respiratory: Reports cough, Reports dyspnea and Reports wheezing Gastrointestinal: Gastrointestinal: Denies abdominal pain, Denies nausea and Denies vomiting PMFSH Past Medical History Medical History Arthritis Asthma Bronchitis COPD (chronic obstructive pulmonary disease) COPD exacerbation 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 Emphysema of lung GERD (gastroesophageal reflux disease) Headache IBS (irritable bowel syndrome) Pneumonia Surgical History Surgical History History of hysterectomy History of spinal surgery History of thumb surgery right History of tubal ligation Hx of appendectomy Family History Family History Mother Arthritis Heart disease Father Cerebrovascular accident Father Hypertension Social History Social History (Updated 03/06/21 @ 15:04 by May Nickerson CMA) Smoking packs per day: 1 Smoking cigarettes per day: 20.0 Years smoked: 30 Smoking pack-years: 30.00 Smoking status: Former smoker Tobacco type: cigarettes Smoking end date: 07/12/00 Alcohol intake: never Substance use: never Substance use type: does not use Lack of Transportation: No Lack of Food: Never True Current Housing: I Have Housing Concerned About Future Housing: No Difficulty Paying Gas/Electric Bills: No Difficulty Paying for Meds: No Currently Unemployed: No Education: Decline to Answer Difficulty w/ Childcare or Family Care: No Living arrangements: with family Gender identity (if verbalized by the patient): Female Spiritual care concerns: No Agree to blood products: No Exam Narrative: GENERAL: Well-appearing, well-nourished, and in no acute distress. HEAD: Normocephalic, atraumatic. EYES: PERRL and EOMI. ENT: Mucous membranes moist. CHEST: Clear to auscultation. No respiratory distress. HEART: Tachycardic and regular. Normal peripheral pulses. ABDOMEN: Soft, nontender, nondistended. EXTREMITIES: Normal range of motion. No edema. SKIN: Warm, dry, no rash. NEURO: Alert and oriented x3. PSYCH: Normal mood and affect. Course Course Emergency Course: Patient markedly improved after BiPAP an
[2022-08-01 11:25] LABS: NT Pro B Type Natriuretic Pept 221 pg/mL (19.9-100)
--- NOTE | 2022-08-01 13:03 | PM.IMHP ---
H&P: HPI History of Present Illness Date/Time: 08/01/22 13:03 Chief Complaint: Short of breath Narrative: Patient states she has been still feeling short of breath for the last few days progressively getting worse currently on home O2 has history of COPD. Denies any history of any chest pain orthopnea palpitation. Never been diagnosed with atrial fibrillation in the past. Patient has extensive history of lung disease and history of chronic back pain for which she uses pain pump. Patient seen in the emergency room with the BiPAP most history obtained through the family member was bedside patient alert awake but very anxious using accessory muscles. Review of Systems Review of Systems: No fevers chills nausea vomiting. No double vision no blurry vision. No difficulty hearing or sinus complaints. has shortness of breath no fever palpitation dizziness ankle swelling. coughing wheezing no chills. No nausea constipation diarrhea abdominal pain reflux. No urgency frequency of urination. No hematuria. No skin rash eczema. has anxiety depression difficulty sleeping. No bleeding gums enlarged glands. No muscle ache back pain joint stiffness. No loss of strength numbness headache tremor or loss of memory. 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 Emphysema of lung GERD (gastroesophageal reflux disease) Headache IBS (irritable bowel syndrome) Pneumonia Surgical History Surgical History History of hysterectomy History of spinal surgery History of thumb surgery right History of tubal ligation Hx of appendectomy Family History Family History Mother Arthritis Heart disease Father Cerebrovascular accident Father Hypertension Social History Social History (Updated 03/06/21 @ 15:04 by May Nickerson CMA) Smoking packs per day: 1 Smoking cigarettes per day: 20.0 Years smoked: 30 Smoking pack-years: 30.00 Smoking status: Former smoker Tobacco type: cigarettes Smoking end date: 07/12/00 Alcohol intake: never Substance use: never Substance use type: does not use Living arrangements: with family Gender identity (if verbalized by the patient): Female Spiritual care concerns: No Agree to blood products: No Meds Home Medications and Allergies Home Medications Medication Instructions Recorded Confirmed Type diclofenac sodium 50 mg 50 mg PO TID 07/25/19 01/14/22 History tablet,delayed release amlodipine 5 mg tablet 5 mg PO DAILY #30 tabs 08/03/19 01/14/22 Rx albuterol 90 mcg/actuation aerosol 2 mcg inhalation QID 01/29/21 01/14/22 History inhaler budesonide-formoterol HFA 160 2 puff inhalation Q12H 01/29/21 01/14/22 History mcg-4.5 mcg/actuation aerosol inhaler (Symbicort) umeclidinium 62.5 mcg/actuation 1 inh inhalation DAILY 01/29/21 01/14/22 History blister powder for inhalation (Incruse Ellipta) hydrocodone 10 mg-acetaminophen 2 tablet PO BID 12/09/21 01/14/22 History 325 mg tablet naloxegol 25 mg tablet (Movantik) 25 tablet PO DAILY 12/09/21 01/14/22 History doxycycline monohydrate 100 mg 100 mg PO BID #14 tabs 04/10/22 Rx tablet prednisone 10 mg tablet See Taper PO DAILY 15 days #45 tabs 04/10/22 Rx Allergies Allergy/AdvReac Type Severity Reaction Status Date / Time No Known Allergies Allergy Unknown Verified 01/14/22 13:57 Vital Signs Vital Signs - 24 hr 08/01/22 09:14 08/01/22 09:25 08/01/22 09:25 Temperature 36.6 C Pulse Rate 133 H 121 H Respiratory Rate 33 H Blood Pressure 118/90 Pulse Oximetry 100 100 Oxygen Delivery EMS-CPAP BiPAP 08/01/22 09:46 08/01/22 09:15 08/01/22 10:37 Tem
[2022-08-01] MEDS: PERFLUTREN LIPID MICROSPHERES 1.5 ML VIAL DILUTED TO 10 ML TOTAL VOLUME IV PUSH (13:10)
[2022-08-01 13:37] LABS: Magnesium 2.9 mg/dL (1.6-2.3)
[2022-08-01 13:42] LABS: Basophils Percent Auto 0.1 % (0.2-1.2); Eosinophils Percent Auto 0.1 % (0-4.4); Hematocrit 40.3 % (37.0-47.0); Immature Granulocyte Absolute 0.02 K/mm3 (0.00-0.031); Immature Granulocyte Percent A 0.2 % (0-0.5); Lymphocytes Absolute Auto 0.23 K/mm3 (0.9-3.2); Lymphocytes Percent Auto 2.8 % (18.3-44.2); Mean Corpuscular HGB Conc 32.3 g/dl (32-36); Mean Corpuscular Hemoglobin 30.4 pg (26-34); Mean Corpuscular Volume 94.4 fl (80-100); Monocytes Absolute Auto 0.1 K/mm3 (0.1-0.6); Monocytes Percent Auto 0.7 % (2.6-8.5); Neutrophils Percent Auto 96.1 % (45.5-73.1); Platelet Count Result 246 k/mm3 (150-375); Red Blood Count 4.27 M/mm3 (4.2-5.4); Red Cell Distribution Width 12.7 % (11.5-14.5); White Blood Count 8.3 K/mm3 (4.5-10.0)
[2022-08-01 13:55] LABS: Anion Gap 5 mmol/L (8-16); Blood Urea Nitrogen 16 mg/dL (7-17); Calcium 8.4 mg/dL (8.4-10.2); Carbon Dioxide 30 mmol/L (22-30); Chloride 103 mmol/L (98-107); Estimated Glomerular Filt Rate > 60; Glucose 131 mg/dL (65-110); Potassium 4.1 mmol/L (3.4-5.0); Sodium 138 mmol/L (137-145)
--- NOTE | 2022-08-01 14:35 | ADMGEN ---
This patient, Pamela Gallegos, was admitted to IMU Room 201-01 at 1435. Patient/family oriented to hospital policies and general routines including ID bracelet, bed and alarms, visiting hours, pain management, procedures, bathroom and other care routines, personal items, smoking policy, room service/diet, and visiting hours. Information on how to activate the Rapid Response Team has been discussed. Patient/Family are encouraged to report perceived risks to care and to ask questions if they do not understand what they are told or what they should do.
--- NOTE | 2022-08-01 15:00 | ECG_ITS ---
Measurements Intervals [place] Rate: 130 P: 80 SC: 129 QRS: 47 QRSD: 74 T: 88 QT: 333 QTc: 491 Interpretive Statements SINUS OR ECTOPIC ATRIAL TAACHYCARDIA FREQUENT ATRIAL PREMATURE COMPLEXES NONSPECIFIC ST & T-WAVE ABNORMALITY- DIFFUSE LEADS BASELINE ARTIFACT- I, II, AVR, V1, V4 ABNORMAL ECG COMPARED TO ECG 08/01/2022 09:23:03 SINUS OR ECTOPIC ATRIAL TACHYCARDIA NOW PRESENT T-WAVE ABNORMALITY NOW PRESENT Electronically Signed On 08-01-2022 17:30:22 [employer] by Keny Marcos D.O.
[2022-08-01] MEDS: ALBUTEROL SULFATE NEB 2.5 MG/3 ML INH 5 MG INHALATION ×2 (15:44→20:05)
[2022-08-01] MEDS: IPRATROPIUM BR 0.02% INH SOLN 0.5 MG/2.5 ML VIAL INHALATION ×2 (15:44→20:05)
[2022-08-01] MEDS: ENOXAPARIN 40 MG/0.4 ML SYRINGE SUB-Q (15:59)
[2022-08-01] MEDS: levoFLOXacin 750 MG TABLET PO (15:59)
[2022-08-01] MEDS: METOPROLOL SUCCINATE EXT REL 25 MG TABCR PO (15:59)
[2022-08-01] MEDS: PANTOPRAZOLE 40 MG TABLET PO (15:59)
[2022-08-01] MEDS: DEXTROSE 5%/LACTATED RINGERS 1,000 ML 75 ML IV CONT (16:00)
[2022-08-01 20:05] LABS: Glucose Point of Care 115 mg/dl (65-105)
[2022-08-01] MEDS: methylPREDNISolone SOD SUCC 125 MG VIAL 60 MG IV PUSH (23:36)
[2022-08-02] VITALS (24 sets, daily range): BP systolic 112–150; BP diastolic 72–93; PULSE 69–125; RESP 14–23; TEMP 36.2–37.2; O2SAT 94–99
[2022-08-02] MEDS: IPRATROPIUM BR 0.02% INH SOLN 0.5 MG/2.5 ML VIAL INHALATION ×4 (02:28→19:22)
[2022-08-02] MEDS: ALBUTEROL SULFATE NEB 2.5 MG/3 ML INH 5 MG INHALATION (02:29)
[2022-08-02] MEDS: methylPREDNISolone SOD SUCC 125 MG VIAL 60 MG IV PUSH ×3 (06:16→17:40)
[2022-08-02] MEDS: DEXTROSE 5%/LACTATED RINGERS 1,000 ML 75 ML IV CONT (06:16)
[2022-08-02 08:27] LABS: Hematocrit 43.3 % (37.0-47.0); Hemoglobin 14.2 g/dL (12.0-15.0); Mean Corpuscular HGB Conc 32.8 g/dl (32-36); Mean Corpuscular Hemoglobin 30.5 pg (26-34); Mean Corpuscular Volume 92.9 fl (80-100); Mean Platelet Volume 11.1 fl (7.4-10.4); Platelet Count Result 267 k/mm3 (150-375); Red Blood Count 4.66 M/mm3 (4.2-5.4); Red Cell Distribution Width 12.9 % (11.5-14.5); White Blood Count 6.8 K/mm3 (4.5-10.0)
--- NOTE | 2022-08-02 09:12 | PM.IMPN ---
Progress Note: A&P Assessment and Plan (1) COPD with acute exacerbation: Code(s): J44.1 - Chronic obstructive pulmonary disease with (acute) exacerbation Status: Acute (2) New onset a-fib: Code(s): I48.91 - Unspecified atrial fibrillation Status: Acute (3) Hypertension: Code(s): I10 - Essential (primary) hypertension Status: Acute (4) PSVT (paroxysmal supraventricular tachycardia): Code(s): I47.1 - Supraventricular tachycardia Status: Acute (5) Anxiety: Code(s): F41.9 - Anxiety disorder, unspecified Status: Acute Plan Patient advice to quit smoking. Bronchodilators. Switch to Xopenex Steroids Oxygen sat 98% 2 L nasal cannula Spirometry and chest x-ray severe emphysema Pulmonary rehab if indicated. For disease management to follow GOLD guidelines. Screen for Vitamine D deficency. Repeat hospitilaztion risk evaluation per CAT. On home O2 Starting BiPAP Patient very anxious may benefit from a small dose of Ativan will be mindful about CO2 retention AFib with rapid ventricular rate on EKG.? Morning EKG shows sinus tach with PACs Cardiology consult.? Beta-rayne started.? Continue Lovenox.? 2D echo ordered X-rays clear of pneumonia but patient still has productive cough in view of that we will start patient on levofloxacin IV wait for blood cultures. Subjective Date/time seen: 08/02/22 09:12 Interval history: Very anxious also short of breath using some accessory muscles was on BiPAP this morning Exam Narrative: GENERAL: Well appearing, well-nourished, non-toxic, in no acute distress. HEAD: Normocephalic, atraumatic. NECK: Supple. No adenopathy, no masses. RESPIRATORY: Airway patent, respirations labored. Poor lung exchange bilateral wheezing and rhonchi CARDIOVASCULAR: Regular rate and rhythm without murmurs, rubs, or gallops. Peripheral pulses 2+ and equal bilaterally. ABDOMINAL: Soft, nontender, nondistended, no hepatosplenomegaly. Normoactive BS. MUSCULOSKELETAL: no Epigastric and no hypochondrial tenderness SKIN: Warm, dry, normal color. No rashes. NEURO: A&O X3. Moves all extremities PSYCHIATRIC: Appropriate mood and affect. Normal interaction. Objective Data Vital Signs Vital Signs: Vital Signs - 24 hr 08/01/22 09:14 08/01/22 09:25 08/01/22 09:25 Temperature 36.6 C Pulse Rate 133 H 121 H Respiratory Rate 33 H Blood Pressure 118/90 Pulse Oximetry 100 100 Oxygen Delivery EMS-CPAP BiPAP Oxygen Flow Rate 08/01/22 09:46 08/01/22 09:15 08/01/22 10:37 Temperature Pulse Rate 111 H 122 H 106 H Respiratory Rate 20 33 H 25 H Blood Pressure 106/81 Pulse Oximetry 100 99 Oxygen Delivery BiPAP Oxygen Flow Rate 08/01/22 10:38 08/01/22 10:55 08/01/22 10:55 Temperature Pulse Rate 110 H 110 H Respiratory Rate 18 18 Blood Pressure Pulse Oximetry 99 100 Oxygen Delivery BiPAP BiPAP Oxygen Flow Rate 08/01/22 11:47 08/01/22 12:46 08/01/22 12:40 Temperature Pulse Rate 110 H 108 H 112 H Respiratory Rate 28 H 15 24 H Blood Pressure 110/79 122/88 Pulse Oximetry 99 98 97 Oxygen Delivery BiPAP Oxygen Flow Rate 08/01/22 14:26 08/01/22 14:41 08/01/22 14:50 Temperature 36.3 C L Pulse Rate 109 H 137 H Respiratory Rate 26 H 22 H Blood Pressure 142/91 H Pulse Oximetry 96 96 94 Oxygen Delivery Nasal Cannula Oxygen Flow Rate 2 08/01/22 15:47 08/01/22 15:52 08/01/22 15:59 Temperature Pulse Rate 112 H 142 H Respiratory Rate 18 Blood Pressure Pulse Oximetry 95 Oxygen Delivery Nasal Cannula Oxygen Flow Rate 2 08/01/22 16:10 08/01/22 16:00 08/01/22 16:00 Temperature Pulse Rate 109 H 117 H Respiratory Rate 18 Blood Pressure Pulse Oximetry 90 Oxygen Delivery Nasal Cannula Oxygen Flow Rate 2 08/01/22 20:05 08/01/22 20:05 08/01/22 20:05 Temperature 36.6 C Pulse Rate 112 H 112 H 95 Respiratory Rate 20 20 Blood Pressure 114
[2022-08-02 09:33] LABS: Alanine Aminotransferase 40 U/L (6-35); Albumin Level 4.1 g/dL (3.5-5.1); Alkaline Phosphatase 83 U/L (38-126); Anion Gap 5 mmol/L (8-16); Aspartate Amino Transferase 33 U/L (14-36); Bilirubin,Total 0.7 mg/dL (0.2-1.3); Blood Urea Nitrogen 16 mg/dL (7-17); Calcium 8.8 mg/dL (8.4-10.2); Carbon Dioxide 33 mmol/L (22-30); Chloride 103 mmol/L (98-107); Estimated Glomerular Filt Rate > 60; Glucose 154 mg/dL (65-110); Sodium 141 mmol/L (137-145)
[2022-08-02] MEDS: levoFLOXacin 750 MG TABLET PO (10:29)
[2022-08-02] MEDS: ENOXAPARIN 40 MG/0.4 ML SYRINGE SUB-Q (10:30)
[2022-08-02] MEDS: METOPROLOL SUCCINATE EXT REL 25 MG TABCR PO (10:30)
--- NOTE | 2022-08-02 13:25 | PCOTNOTE ---
Attempted OT evaluation, patient currently with respiratory therapist for breathing treatment. Will follow
[2022-08-02] MEDS: ACETAMINOPHEN 325 MG TABLET 650 MG PO (22:19)
[2022-08-02] MEDS: LORazepam (*CRX) 0.5 MG TABLET PO (23:59)
[2022-08-03] VITALS (22 sets, daily range): BP systolic 133–148; BP diastolic 85–91; PULSE 75–126; RESP 18–24; TEMP 36.3–37.1; O2SAT 93–98
[2022-08-03] MEDS: methylPREDNISolone SOD SUCC 125 MG VIAL 60 MG IV PUSH ×4 (05:25→18:23)
[2022-08-03] MEDS: LORazepam (*CRX) 0.5 MG TABLET PO ×3 (07:09→22:18)
[2022-08-03 08:16] LABS: Hematocrit 42.3 % (37.0-47.0); Hemoglobin 13.8 g/dL (12.0-15.0); Mean Corpuscular HGB Conc 32.6 g/dl (32-36); Mean Corpuscular Hemoglobin 30.5 pg (26-34); Mean Corpuscular Volume 93.4 fl (80-100); Mean Platelet Volume 9.9 fl (7.4-10.4); Platelet Count Result 288 k/mm3 (150-375); Red Blood Count 4.53 M/mm3 (4.2-5.4); Red Cell Distribution Width 13.1 % (11.5-14.5); White Blood Count 6.8 K/mm3 (4.5-10.0)
[2022-08-03] MEDS: IPRATROPIUM BR 0.02% INH SOLN 0.5 MG/2.5 ML VIAL INHALATION ×3 (08:25→20:09)
[2022-08-03 08:28] LABS: Alanine Aminotransferase 26 U/L (6-35); Albumin Level 4.1 g/dL (3.5-5.1); Alkaline Phosphatase 69 U/L (38-126); Anion Gap 4 mmol/L (8-16); Aspartate Amino Transferase 27 U/L (14-36); Bilirubin,Total 0.6 mg/dL (0.2-1.3); Blood Urea Nitrogen 24 mg/dL (7-17); Calcium 8.6 mg/dL (8.4-10.2); Carbon Dioxide 34 mmol/L (22-30); Chloride 100 mmol/L (98-107); Estimated Glomerular Filt Rate > 60; Glucose 141 mg/dL (65-110); Potassium 3.7 mmol/L (3.4-5.0); Sodium 138 mmol/L (137-145)
[2022-08-03] MEDS: levoFLOXacin 750 MG TABLET PO (10:05)
[2022-08-03] MEDS: ENOXAPARIN 40 MG/0.4 ML SYRINGE SUB-Q (10:05)
[2022-08-03] MEDS: METOPROLOL SUCCINATE EXT REL 25 MG TABCR PO (10:05)
--- NOTE | 2022-08-03 10:23 | PM.CNCAR ---
Assessment and Plan Assessment and plan (1) New onset a-fib: Code(s): I48.91 - Unspecified atrial fibrillation Status: Acute Plan 77-year-old lady with severe chronic COPD admitted several days ago with shortness of breath/COPD exacerbation. Twelve lead electrocardiogram upon arrival shows sinus tachycardia with some atrial ectopic activity. The quality of the tracing was not very good but P waves are visible indicating in my opinion she is not in atrial fibrillation at that time. Subsequent telemetry on the floor does not show any evidence of atrial fibrillation. This is a diagnosis which in my opinion at this time should be discarded. Please call me if you have any further questions about this Tony Gómez MD [facility] History of Present Illness History of Present Illness Consult date/time: 08/03/22 10:23 Consult reason: atrial fibrillation Reason For Visit: copd exacerbation Narrative: This 77-year-old woman I am seeing today at the request of the hospitalist because of atrial fibrillation. The patient is unknown to me prior to this encounter she was seen in the IMU with her in the room in attendance as well. The patient is not known to have any cardiac problems before this that either of them can not recall. She is known to have very severe emphysema/COPD and follows with pulmonology here at this hospital as well as her PCP. She came into the hospital on Wednesday of this past weekend with advancing shortness of breath for several days. The patient apparently is on home oxygen in her baseline dyspnea became much more severe. Her chest x-ray demonstrates evidence of severe emphysema her electrocardiogram shows sinus tachycardia with atrial ectopic activity and a suboptimal quality baseline because of muscle artifact but in my opinion does not show evidence of atrial fibrillation(despite the official read). Subsequent EKGs and telemetry in the hospital clearly demonstrates sinus rhythm. The patient is reporting no other symptoms or complaints she denies any significant episodes of chest pain orthopnea PND or edema. Review of Systems Constitutional: Constitutional: Reports lethargy Eyes: Eyes: Reports no additional eye complaints ENT: Reports system reviewed and no additional complaints, except as documented Cardiovascular: Cardiovascular: Reports no additional cardiovascular complaints Respiratory: Respiratory: Reports dyspnea Gastrointestinal: Gastrointestinal: Reports no additional gastrointestinal complaints Musculoskeletal: Musculoskeletal: Reports back pain and Reports arthralgias Comments: Patient has a chronic pain pump Neurologic: Reports system reviewed and no additional complaints, except as documented Endocrine: Endocrine: Reports no additional endocrine complaints Hematologic/Lymphatic: Hematologic/Lymphatic: Reports no additional hematologic/lymphatic complaints Allergic/Immunologic: Allergic/Immunologic: Reports no additional allergic/immunologic complaints [facility], [facility] Past Medical History Medical History Arthritis Asthma Bronchitis COPD (chronic obstructive pulmonary disease) COPD exacerbation 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 Emphysema of lung GERD (gastroesophageal reflux disease) Headache IBS (irritable bowel syndrome) Pneumonia Surgical History Surgical History History of hysterectomy History of spinal surgery History of thumb surgery right History of tubal ligation Hx of appendectomy Family History Family History Mother Arthritis Heart disease Father Cerebrovascular accident Father Hypertension Social History Social History (Updated 03/06/21 @ 15:04 by May Nickerson CMA) Smoking packs per day: 1 Smoking cigarettes per day: 20.0 Years smoked: 30 Smoking pack-yea
--- NOTE | 2022-08-03 16:03 | PM.IMPN ---
Progress Note: A&P Assessment and Plan (1) COPD with acute exacerbation: Code(s): J44.1 - Chronic obstructive pulmonary disease with (acute) exacerbation Status: Acute (2) New onset a-fib: Code(s): I48.91 - Unspecified atrial fibrillation Status: Acute (3) Hypertension: Code(s): I10 - Essential (primary) hypertension Status: Acute (4) PSVT (paroxysmal supraventricular tachycardia): Code(s): I47.1 - Supraventricular tachycardia Status: Acute (5) Anxiety: Code(s): F41.9 - Anxiety disorder, unspecified Status: Acute Plan Patient advice to quit smoking. Bronchodilators. Switch to Xopenex Oxygen sat 98% 2 L nasal cannula chest x-ray severe emphysema Pulmonary rehab if indicated. Starting BiPAP continue iv steroids, oral levaquin add ns nebulisers add mucinex sinus tachycardia not AF Morning EKG shows sinus tach with PACs Cardiology consult.? Beta-rayne started.? Continue Lovenox.? 2D echo ordered Subjective Date/time seen: 08/03/22 16:03 Interval history: Pt admitted with acute respiratory failure Pt has history of end stage and is on NIVM at home Pt has chronic pain issues and is on a morphine pain pump Pt feels SOB on minimally movements Review of Systems Review of Systems: SOB, fatigue, tiredness Exam Narrative: GENERAL: Well appearing, well-nourished frail thin chronically ill emphysemic RESPIRATORY: Airway patent, respirations labored. Poor lung exchange bilateral wheezing and rhonchi CARDIOVASCULAR: Regular rate and rhythm without murmurs, rubs, or gallops. ABDOMINAL: Soft, nontender, nondistended, no hepatosplenomegaly. Normoactive BS. MUSCULOSKELETAL: no Epigastric and no hypochondrial tenderness SKIN: Warm, dry, normal color. No rashes. NEURO: A&O X3. Moves all extremities PSYCHIATRIC: Appropriate mood and affect. Normal interaction. Objective Data Vital Signs Vital Signs: Vital Signs - 24 hr 08/02/22 18:00 08/02/22 20:35 08/02/22 19:21 Temperature 36.2 C L Pulse Rate 104 H 100 113 H Respiratory Rate 21 H 14 Blood Pressure 150/93 H Pulse Oximetry 96 Oxygen Delivery Oxygen Flow Rate 08/02/22 20:00 08/02/22 20:00 08/02/22 22:00 Temperature Pulse Rate 123 H 123 H 115 H Respiratory Rate 21 H Blood Pressure Pulse Oximetry 96 Oxygen Delivery Nasal Cannula Oxygen Flow Rate 2 08/02/22 23:47 08/03/22 00:00 08/03/22 00:00 Temperature 36.3 C L Pulse Rate 103 H 106 H 106 H Respiratory Rate 18 18 Blood Pressure 147/89 H Pulse Oximetry 97 97 Oxygen Delivery Nasal Cannula Oxygen Flow Rate 2 08/02/22 23:55 08/03/22 02:00 08/03/22 04:41 Temperature 36.3 C L Pulse Rate 115 H 75 89 Respiratory Rate 23 H 20 Blood Pressure 148/90 H Pulse Oximetry 95 96 Oxygen Delivery BiPAP Oxygen Flow Rate 08/03/22 04:00 08/03/22 04:00 08/03/22 06:00 Temperature Pulse Rate 75 89 89 Respiratory Rate 20 Blood Pressure Pulse Oximetry 96 Oxygen Delivery Nasal Cannula Oxygen Flow Rate 2 08/03/22 08:26 08/03/22 08:26 08/03/22 08:00 Temperature 36.6 C Pulse Rate 114 H 114 H 105 H Respiratory Rate 22 H 22 H 24 H Blood Pressure 137/91 H Pulse Oximetry 94 96 Oxygen Delivery Nasal Cannula Oxygen Flow Rate 2 08/03/22 09:30 08/03/22 10:05 08/03/22 00:41 Temperature Pulse Rate 95 111 H Respiratory Rate 22 H Blood Pressure Pulse Oximetry Oxygen Delivery Nasal Cannula Oxygen Flow Rate 2 08/03/22 12:00 08/03/22 08:00 08/03/22 08:00 Temperature 37.1 C Pulse Rate 86 101 H Respiratory Rate 20 Blood Pressure 133/85 Pulse Oximetry 98 98 Oxygen Delivery Nasal Cannula Oxygen Flow Rate 2 08/03/22 10:00 08/03/22 12:00 08/03/22 12:00 Temperature Pulse Rate 95 111 H Respiratory Rate Blood Pressure Pulse Oximetry 98 Oxygen Delivery Nasal Cannula Oxygen Flow Rate 2 08/03/22 14:
[2022-08-03] MEDS: clonazePAM (*CRX) 0.5 MG TABLET PO (18:23)
[2022-08-03] MEDS: guaiFENesin 12 HR 600 MG TABCR PO (21:08)
[2022-08-03] MEDS: DICLOFENAC SOD 25 MG TABLET.EC 50 MG PO (21:09)
--- NOTE | 2022-08-03 22:23 | PHAR ---
Arformoterol 15 mcg/2 mL solution for nebulization -VERIFIED (#10) IN PHARMACY AND SENT BACK TO IMU INHALE 2ML TWICE DAILY BY INHALATION ROUTE DIRECTED FOR 30 DAYS
[2022-08-04] VITALS (30 sets, daily range): BP systolic 78–149; BP diastolic 61–93; PULSE 80–173; RESP 13–24; TEMP 36.3–36.8; O2SAT 92–97
[2022-08-04] MEDS: methylPREDNISolone SOD SUCC 125 MG VIAL 60 MG IV PUSH ×4 (00:31→16:07)
[2022-08-04] MEDS: IPRATROPIUM BR 0.02% INH SOLN 0.5 MG/2.5 ML VIAL INHALATION ×4 (02:28→21:16)
[2022-08-04] MEDS: LORazepam (*CRX) 0.5 MG TABLET PO ×2 (05:45→20:58)
[2022-08-04] MEDS: DICLOFENAC SOD 25 MG TABLET.EC 50 MG PO ×3 (05:45→20:59)
--- NOTE | 2022-08-04 07:41 | ECG_ITS ---
Measurements Intervals [place] Rate: 164 P: [place]: 0 QRS: 55 QRSD: 80 T: 266 QT: 243 QTc: 402 Interpretive Statements ATRIAL FIBRILLATION WITH RAPID VENTRICULAR RESPONSE ST-T WAVE ABNORMALITY IN ANTEROLAT/INF LEADS- CONSIDER ISCHEMIA BASELINE ARTIFACT- I, II, V1, V3-V6 ABNORMAL ECG COMPARED TO ECG 08/01/2022 15:00:19 ATRIAL FIBRILLATION NOW PRESENT Electronically Signed On 08-04-2022 7:54:23 QUANTITATIVE CONSULTANT by Keny Marcos D.O.
[2022-08-04] MEDS: amLODIPine BESYLATE 5 MG TABLET 10 MG PO (08:25)
[2022-08-04] MEDS: guaiFENesin 12 HR 600 MG TABCR PO ×2 (08:26→20:59)
[2022-08-04] MEDS: METOPROLOL SUCCINATE EXT REL 25 MG TABCR PO (08:26)
[2022-08-04] MEDS: ENOXAPARIN 40 MG/0.4 ML SYRINGE SUB-Q (08:26)
[2022-08-04] MEDS: levoFLOXacin 750 MG TABLET PO (08:26)
[2022-08-04] MEDS: clonazePAM (*CRX) 0.5 MG TABLET PO ×2 (08:29→16:05)
[2022-08-04] MEDS: METOPROLOL TARTRATE INJ 5 MG/5 ML VIAL IV PUSH (08:52)
--- NOTE | 2022-08-04 10:01 | PM.PNCARD ---
Progress Note: A&P Assessment and Plan (1) New onset a-fib: Code(s): I48.91 - Unspecified atrial fibrillation Status: Acute Assessment and Plan: 77-year-old lady with severe chronic COPD admitted several days ago with shortness of breath/COPD exacerbation. She developed atrial fibrillation with rapid ventricular response this morning with a heart rate up to the 180's. She is asymptomatic with this surprisingly. She has been given p.o. metoprolol as well as one dose of IV lopressor with no improvement in her heart rate and she is now hypotensive. I discussed the option of amiodarone and explained the potential adverse effects associated with this medication particularly with residential use and the intention with this patient would not be to place her on supervisor long goods amiodarone therapy given her severe chronic lung disease. She and her verbalize understanding therefore we will proceed with IV amiodarone. Hopefully she will convert to sinus rhythm and can be maintained on metoprolol again with the intention not to maintain this patient on residential oral amiodarone. She has a [id number] score of 3, anticoagulation is indicated. Will discontinue her lovenox and shift her to a DOAC in the form of Xarelto 20mg nightly for stroke prophylaxis. Subjective Date/time seen: 08/04/22 10:01 Cardiology follow up for atrial fibrillation She went into atrial fibrillation with RVR this morning with a rate up to the 180's. She is denying any palpitations, increased shortness of breath, or chest pain. Review of Systems Constitutional: Constitutional: Reports lethargy Eyes: Eyes: Reports no additional eye complaints ENT: Reports system reviewed and no additional complaints, except as documented Cardiovascular: Cardiovascular: Reports no additional cardiovascular complaints and Reports dyspnea Respiratory: Respiratory: Reports dyspnea Gastrointestinal: Gastrointestinal: Reports no additional gastrointestinal complaints Musculoskeletal: Musculoskeletal: Reports back pain and Reports arthralgias Neurologic: Reports system reviewed and no additional complaints, except as documented Endocrine: Endocrine: Reports no additional endocrine complaints Hematologic/Lymphatic: Hematologic/Lymphatic: Reports no additional hematologic/lymphatic complaints Allergic/Immunologic: Allergic/Immunologic: Reports no additional allergic/immunologic complaints Exam HENMT: Mouth: Yes dry mucous membranes Eyes: Sclera: sclerae normal Neck: Neck: supple and no JVD Other: Carotid upstrokes are normal bilaterally Resp: Auscultation: wheezes expiratory wheezes and diminished lung sounds Other: Prolonged expiratory phase Cardio: Rate: tachycardic Rhythm: abnormal rhythm irregularly irregular GI: Auscultation: normal bowel sounds Skin: General skin exam: normal color Neuro: Other: Alert and oriented normal cognition Extrem: Other: No edema Objective Data Vital Signs Vital Signs: Vital Signs - 24 hr 08/03/22 10:05 08/03/22 12:00 08/03/22 12:00 Temperature 37.1 C Pulse Rate 95 86 111 H Respiratory Rate 20 Blood Pressure 133/85 Pulse Oximetry 98 Oxygen Delivery Oxygen Flow Rate 08/03/22 12:00 08/03/22 14:00 08/03/22 14:23 Temperature Pulse Rate 99 99 Respiratory Rate 20 Blood Pressure Pulse Oximetry 98 Oxygen Delivery Nasal Cannula Oxygen Flow Rate 2 08/03/22 14:49 08/03/22 16:00 08/03/22 16:00 Temperature Pulse Rate 92 110 H Respiratory Rate 18 Blood Pressure Pulse Oximetry 98 Oxygen Delivery Nasal Cannula Oxygen Flow Rate 2 08/03/22 16:00 08/03/22 18:00 08/03/22 20:00 Temperature 36.5 C Pulse Rate 119 H 120 H 96 Respiratory Rate 20 18 Blood Pressure 145/90 H Pulse Oximetry 93 Oxygen Delivery Oxygen Flow Rate 08/03/22 20:22 08/03/22 20:00 08/03/22 20:00 Temperature 36.6 C Pulse Rate 102 H 113 H 126 H Respiratory R
[2022-08-04] MEDS: AMIODARONE 150 MG/D5W 100 ML 150 MG/100 ML BAG 600 MG IV CONT (10:14)
[2022-08-04] MEDS: AMIODARONE 360 MG/D5W 200 ML 360 MG/200 ML BAG 33.33 MG IV CONT (10:14)
[2022-08-04 10:20] LABS: Hematocrit 37.8 % (37.0-47.0); Hemoglobin 12.1 g/dL (12.0-15.0); Mean Corpuscular Hemoglobin 29.4 pg (26-34); Mean Corpuscular Volume 91.7 fl (80-100); Mean Platelet Volume 10.3 fl (7.4-10.4); Platelet Count Result 245 k/mm3 (150-375); Red Blood Count 4.12 M/mm3 (4.2-5.4); Red Cell Distribution Width 13.2 % (11.5-14.5); White Blood Count 4.5 K/mm3 (4.5-10.0)
[2022-08-04 10:29] LABS: Alanine Aminotransferase 24 U/L (6-35); Albumin Level 3.2 g/dL (3.5-5.1); Alkaline Phosphatase 56 U/L (38-126); Anion Gap 3 mmol/L (8-16); Aspartate Amino Transferase 25 U/L (14-36); Bilirubin,Total 0.5 mg/dL (0.2-1.3); Blood Urea Nitrogen 26 mg/dL (7-17); Calcium 7.8 mg/dL (8.4-10.2); Carbon Dioxide 33 mmol/L (22-30); Chloride 99 mmol/L (98-107); Estimated Glomerular Filt Rate > 60; Glucose 176 mg/dL (65-110); Potassium 3.4 mmol/L (3.4-5.0); Sodium 135 mmol/L (137-145)
[2022-08-04] MEDS: ALPRAZolam (*CRX) 0.25 MG TABLET PO ×2 (14:08→18:34)
--- NOTE | 2022-08-04 14:44 | PM.IMPN ---
Progress Note: A&P Assessment and Plan (1) COPD with acute exacerbation: Code(s): J44.1 - Chronic obstructive pulmonary disease with (acute) exacerbation Status: Acute Assessment and Plan: Pt has End stage copd Pt uses nebulizers and non invasive ventilator at home Pt is on Xopenex nebulisers here Oxygen sat 98% 2 L nasal cannula with BIPAP PRN in the room chest x-ray severe emphysema continue iv steroids, oral levaquin add ns nebulisers add mucinex pulmonology consulted (2) New onset a-fib: Code(s): I48.91 - Unspecified atrial fibrillation Status: Acute Assessment and Plan: pt looks like she is in af today @150s amiodarone iv given digoxin oral Cardiology consult.? calcium channel started.?beta blockers stopped Continue Lovenox.? 2D echo ordered (3) Hypertension: Code(s): I10 - Essential (primary) hypertension Status: Acute Assessment and Plan: chronic and stable (4) PSVT (paroxysmal supraventricular tachycardia): Code(s): I47.1 - Supraventricular tachycardia Status: Acute Assessment and Plan: pt is on tele monitor (5) Anxiety: Code(s): F41.9 - Anxiety disorder, unspecified Status: Acute Assessment and Plan: low dose xanax tid Subjective Date/time seen: 08/04/22 14:44 Interval history: Pt admitted with acute respiratory failure Pt has history of end stage and is on Non invasive ventilator at home Pt has chronic pain issues and is on a morphine pain pump Pt feels SOB on minimally movements Resting in bed Her heart rate is going up to 150s today and she desaturates on moderate exertion Pulmonology consulted cardiology consulted Long discussion wit her by the bedside Decline in function Review of Systems Review of Systems: Ongoing sob and palpitations Exam Narrative: GENERAL: Well appearing, well-nourished frail thin chronically ill emphysemic RESPIRATORY: respirations labored on speaking. Poor lung exchange bilateral wheezing and rhonchi CARDIOVASCULAR: Regular rate and rhythm without murmurs, rubs, or gallops. ABDOMINAL: Soft, nontender, nondistended, no hepatosplenomegaly. Normoactive BS. MUSCULOSKELETAL: no Epigastric and no hypochondrial tenderness SKIN: Warm, dry, normal color. No rashes. NEURO: A&O X3. Moves all extremities PSYCHIATRIC: Appropriate mood and affect. Normal interaction. Objective Data Vital Signs Vital Signs: Vital Signs - 24 hr 08/03/22 14:49 08/03/22 16:00 08/03/22 16:00 Temperature Pulse Rate 92 110 H Respiratory Rate 18 Blood Pressure Pulse Oximetry 98 Oxygen Delivery Nasal Cannula Oxygen Flow Rate 2 08/03/22 16:00 08/03/22 18:00 08/03/22 20:00 Temperature 36.5 C Pulse Rate 119 H 120 H 96 Respiratory Rate 20 18 Blood Pressure 145/90 H Pulse Oximetry 93 Oxygen Delivery Oxygen Flow Rate 08/03/22 20:22 08/03/22 20:00 08/03/22 20:00 Temperature 36.6 C Pulse Rate 102 H 113 H 126 H Respiratory Rate 20 Blood Pressure 140/89 Pulse Oximetry 94 95 Oxygen Delivery Oxygen Flow Rate 2 08/03/22 20:00 08/03/22 22:00 08/03/22 23:57 Temperature 36.6 C Pulse Rate 102 H 85 86 Respiratory Rate 20 18 Blood Pressure 137/90 Pulse Oximetry 94 97 Oxygen Delivery Nasal Cannula Oxygen Flow Rate 2 08/03/22 23:20 08/04/22 00:00 08/04/22 00:00 Temperature Pulse Rate 85 108 H 86 Respiratory Rate 20 18 Blood Pressure Pulse Oximetry 96 97 Oxygen Delivery BiPAP BiPAP Oxygen Flow Rate 08/04/22 02:29 08/04/22 02:30 08/04/22 02:00 Temperature Pulse Rate 89 89 89 Respiratory Rate 14 13 Blood Pressure Pulse Oximetry 96 Oxygen Delivery BiPAP Oxygen Flow Rate 08/04/22 04:00 08/04/22 04:00 08/04/22 04:00 Temperature 36.6 C Pulse Rate 124 H 89 90 Respiratory Rate 13 20 Blood Pressure 149/93 H Pulse Oximetry 96 95 Oxygen Delivery BiPAP
[2022-08-04] MEDS: DIGOXIN INJ 250 MCG/ML 2 ML AMP (*BKC) IV PUSH (15:13)
--- NOTE | 2022-08-04 15:40 | PM.CNPUL ---
Assessment and Plan Assessment and plan (1) COPD with acute exacerbation: Code(s): J44.1 - Chronic obstructive pulmonary disease with (acute) exacerbation Status: Acute Assessment and Plan: this 77-year-old female has had severe centrilobular emphysema with chronic hypoxemic hypercapnic respiratory failure, with 2 hospitalizations for COPD exacerbation over the last 2 years, Chronically on supplemental oxygen and home ventilatory support at home presented with shortness of breath related to COPD exacerbation. The patient is also on treatment for atrial fibrillation. Patient is on treatment with BiPAP support at night, antibiotics nebulized short-acting bronchodilators and IV steroids. She continues to have shortness of breath. She is currently on anticoagulation for atrial fibrillation. She has a remote history of DVT but clinical presentation not compatible with pulmonary embolism. Plan: Agree with current regimen, continue with BiPAP support at night and p.r.n. during the day, have decreased IV steroids. (2) New onset a-fib: Code(s): I48.91 - Unspecified atrial fibrillation Status: Acute (3) History of DVT (deep vein thrombosis): Code(s): Z86.718 - Personal history of other venous thrombosis and embolism Status: Acute History of Present Illness History of Present Illness Consult date: 08/04/22 Chief complaint: copd exacerbation Narrative: This is a consultation for COPD exacerbation. The patient presented with progressively increasing shortness of breath cough wheezing of 3-4 days duration. The patient has very severe COPD, with FEV1 in the range of 0.43 L or 26% predicted on a PFT done 3 years ago. She has been on home ventilatory support via a ventilator and supplemental oxygen at 2 liters/minute. She has at least 2 hospitalizations for severe exacerbation over the last 2 years. She was in her usual state of health until approximately 4 days prior to this admission when she started to have some cough chest congestion wheezing and and increasing shortness of breath. Initial evaluation showed hypercapnic respiratory failure but well compensated. The patient has been found to have atrial fibrillation and has been on treatment as well. she has been placed on BiPAP support at night at 12/6 at 40% FiO2. She continues to have shortness of breath. At home she is on nebulized maintenance bronchodilators including Pulmicort, Brovana, and nebulized Lama. chest CT done 2 years ago showed severe centrilobular emphysema. she has history of chronic back pain and had been on opiates via pain pump. Past medical history is also significant hypertension Review of Systems Review of Systems: patient has lost few lb over the last months. She has orthopnea in supine position. She has no history of acid reflux disease. She has history of constipation. She has no urinary complaints. she has history of anxiety. The remainder of the 12 point systems review is negative [facility] Past Medical History Medical History Arthritis Asthma Bronchitis COPD (chronic obstructive pulmonary disease) COPD exacerbation 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 Emphysema of lung GERD (gastroesophageal reflux disease) Headache IBS (irritable bowel syndrome) Pneumonia Surgical History Surgical History History of hysterectomy History of spinal surgery History of thumb surgery right History of tubal ligation Hx of appendectomy Family History Family History Mother Arthritis Heart disease Father Cerebrovascular accident Father Hypertension Social History Social History (Updated 03/06/21 @ 15:04 by May Nickerson CMA) Smoking packs per day: 1 Smoking cigarettes per day: 20.0 Years smoked: 30 Smoking pack-years: 30.00 Sm
[2022-08-04] MEDS: AMIODARONE 360 MG/D5W 200 ML 360 MG/200 ML BAG 16.67 MG IV CONT (16:04)
[2022-08-04] MEDS: RIVAROXABAN 20 MG TABLET PO (16:07)
--- NOTE | 2022-08-04 23:00 | ECG_ITS ---
Measurements Intervals [place] Rate: 84 P: 71 [place]: 119 QRS: 27 QRSD: 82 T: -64 QT: 346 QTc: 410 Interpretive Statements SINUS RHYTHM WITH SHORT [place] INTERVAL ATRIAL PREMATURE COMPLEXES BORDERLINE ST-T WAVE ABNORMALITY- ANT/INF LEADS BASELINE ARTIFACT- I, II, AVR BORDERLINE ECG COMPARED TO ECG 08/04/2022 07:46:51 SINUS [address]M NOW PRESENT ST-T WAVE ABNORMALITY IMPROVED Electronically Signed On 08-05-2022 6:23:39 HEALTH AND WELLNESS COORDINATOR by Keny Marcos D.O.
[2022-08-05] VITALS (23 sets, daily range): BP systolic 102–144; BP diastolic 61–80; PULSE 61–119; RESP 13–26; TEMP 36–36.7; O2SAT 93–100
[2022-08-05] MEDS: IPRATROPIUM BR 0.02% INH SOLN 0.5 MG/2.5 ML VIAL INHALATION ×3 (02:27→20:24)
[2022-08-05] MEDS: AMIODARONE 360 MG/D5W 200 ML 360 MG/200 ML BAG 16.67 MG IV CONT ×2 (03:45→15:33)
[2022-08-05] MEDS: DICLOFENAC SOD 25 MG TABLET.EC 50 MG PO ×3 (05:20→21:51)
[2022-08-05] MEDS: LORazepam (*CRX) 0.5 MG TABLET PO (07:16)
[2022-08-05 08:02] LABS: Anion Gap 5 mmol/L (8-16); Blood Urea Nitrogen 26 mg/dL (7-17); Calcium 7.8 mg/dL (8.4-10.2); Carbon Dioxide 28 mmol/L (22-30); Chloride 97 mmol/L (98-107); Estimated Glomerular Filt Rate > 60; Glucose 127 mg/dL (65-110); Hematocrit 40.4 % (37.0-47.0); Hemoglobin 12.5 g/dL (12.0-15.0); Mean Corpuscular HGB Conc 30.9 g/dl (32-36); Mean Corpuscular Hemoglobin 30.6 pg (26-34); Mean Platelet Volume 10.1 fl (7.4-10.4); Platelet Count Result 217 k/mm3 (150-375); Potassium 3.2 mmol/L (3.4-5.0); Red Blood Count 4.08 M/mm3 (4.2-5.4); Sodium 130 mmol/L (137-145); White Blood Count 5.2 K/mm3 (4.5-10.0)
--- NOTE | 2022-08-05 09:21 | PM.PNCARD ---
Progress Note: A&P Assessment and Plan (1) New onset a-fib: Code(s): I48.91 - Unspecified atrial fibrillation Status: Acute Assessment and Plan: 77-year-old lady with severe chronic COPD admitted several days ago with shortness of breath/COPD exacerbation. She developed atrial fibrillation with rapid ventricular response yesterday morning with a heart rate up to the 180's. She is rate controlled at times but does have RVR intermittently. Continue IV amiodarone for now, shift to p.o. tomorrow. She is being discharged home on hospice probably tomorrow. p.r.n. IV metoprolol for prolonged tachycardia Continue Xarelto 20mg nightly for stroke prophylaxis. Subjective Date/time seen: 08/05/22 09:21 Cardiology follow up for atrial fibrillation She did convert to sinus rhythm last night on amiodarone but returned to atrial fibrillation this morning, tachycardic at times but also intermittently rate controlled. She is considering hospice referral. Review of Systems Constitutional: Constitutional: Reports lethargy Eyes: Eyes: Reports no additional eye complaints ENT: Reports system reviewed and no additional complaints, except as documented Cardiovascular: Cardiovascular: Reports no additional cardiovascular complaints and Reports dyspnea Respiratory: Respiratory: Reports dyspnea Gastrointestinal: Gastrointestinal: Reports no additional gastrointestinal complaints Musculoskeletal: Musculoskeletal: Reports back pain and Reports arthralgias Neurologic: Reports system reviewed and no additional complaints, except as documented Endocrine: Endocrine: Reports no additional endocrine complaints Hematologic/Lymphatic: Hematologic/Lymphatic: Reports no additional hematologic/lymphatic complaints Allergic/Immunologic: Allergic/Immunologic: Reports no additional allergic/immunologic complaints Exam HENMT: Mouth: Yes dry mucous membranes Eyes: Sclera: sclerae normal Neck: Neck: supple and no JVD Other: Carotid upstrokes are normal bilaterally Resp: Auscultation: wheezes expiratory wheezes and diminished lung sounds Other: Prolonged expiratory phase Cardio: Rate: regular rate and tachycardic Rhythm: abnormal rhythm irregularly irregular GI: Auscultation: normal bowel sounds Skin: General skin exam: normal color Neuro: Other: Alert and oriented normal cognition Extrem: Other: No edema Objective Data Vital Signs Vital Signs: Vital Signs - 24 hr 08/04/22 09:36 08/04/22 10:00 08/04/22 11:49 Temperature 36.8 C Pulse Rate 101 H 118 H Respiratory Rate 20 Blood Pressure 90/73 L 78/64 L Pulse Oximetry 95 Oxygen Delivery Oxygen Flow Rate Fraction of Inspired Oxygen 08/04/22 12:00 08/04/22 12:00 08/04/22 13:42 Temperature Pulse Rate 127 H 96 Respiratory Rate 20 Blood Pressure Pulse Oximetry 95 Oxygen Delivery Nasal Cannula Oxygen Flow Rate 2 Fraction of Inspired Oxygen 08/04/22 13:54 08/04/22 14:10 08/04/22 16:42 Temperature 36.3 C L Pulse Rate 103 H 127 H Respiratory Rate 20 20 Blood Pressure 113/77 87/73 L Pulse Oximetry 92 Oxygen Delivery Oxygen Flow Rate Fraction of Inspired Oxygen 08/04/22 14:00 08/04/22 16:00 08/04/22 16:00 Temperature Pulse Rate 136 H 142 H Respiratory Rate Blood Pressure Pulse Oximetry 95 Oxygen Delivery Nasal Cannula Oxygen Flow Rate 2 Fraction of Inspired Oxygen 08/04/22 18:00 08/04/22 20:00 08/04/22 20:00 Temperature 36.7 C Pulse Rate 124 H 130 H 130 H Respiratory Rate 20 20 Blood Pressure 144/78 H Pulse Oximetry 93 93 Oxygen Delivery Nasal Cannula Oxygen Flow Rate 2 Fraction of Inspired Oxygen 08/04/22 21:07 08/04/22 21:22 08/04/22 21:22 Temperature Pulse Rate 156 H Respiratory Rate 24 H Blood Pressure Pulse Oximetry 93 94 Oxygen Delivery Nasal Cannula Nasal Cannula Oxygen Flow Rate 4 4 Fraction of Inspired Oxygen
[2022-08-05] MEDS: methylPREDNISolone SOD SUCC 125 MG VIAL 60 MG IV PUSH (10:09)
[2022-08-05] MEDS: ALPRAZolam (*CRX) 0.25 MG TABLET PO (10:09)
[2022-08-05] MEDS: guaiFENesin 12 HR 600 MG TABCR PO ×2 (10:10→21:51)
[2022-08-05] MEDS: levoFLOXacin 750 MG TABLET PO (10:10)
[2022-08-05] MEDS: amLODIPine BESYLATE 5 MG TABLET 10 MG PO (10:10)
[2022-08-05] MEDS: clonazePAM (*CRX) 0.5 MG TABLET PO ×2 (10:10→17:01)
--- NOTE | 2022-08-05 10:18 | PM.IMPN ---
Progress Note: A&P Assessment and Plan (1) COPD with acute exacerbation: Code(s): J44.1 - Chronic obstructive pulmonary disease with (acute) exacerbation Status: Acute Assessment and Plan: Pt has End stage copd Pt uses nebulizers and non invasive ventilator at home Pt is on Xopenex nebulisers here Oxygen sat 98% 2 L nasal cannula with BIPAP PRN in the room chest x-ray severe emphysema continue iv steroids, oral levaquin add ns nebulisers add mucinex pulmonology consulted (2) New onset a-fib: Code(s): I48.91 - Unspecified atrial fibrillation Status: Acute Assessment and Plan: pt went into afib 08/04 amiodarone iv given digoxin oral Cardiology consult.? calcium channel started.?beta blockers stopped Continue Lovenox.? 2D echo : EF 40-45% mild pulmonary hypertension mild TR trace MR (3) Hypertension: Code(s): I10 - Essential (primary) hypertension Status: Acute Assessment and Plan: chronic and stable (4) PSVT (paroxysmal supraventricular tachycardia): Code(s): I47.1 - Supraventricular tachycardia Status: Acute Assessment and Plan: pt is on tele monitor (5) Anxiety: Code(s): F41.9 - Anxiety disorder, unspecified Status: Acute Assessment and Plan: low dose clonazepam 0.5 b.i.d. Plan Patient interested in hospice referral. Discussed code status wants to be do not resuscitate. Will have referral to hospice sent today Subjective Date/time seen: 08/05/22 10:18 Interval history: Pt admitted with acute respiratory failure Pt has history of end stage and is on Non invasive ventilator at home Pt has chronic pain issues and is on a morphine pain pump Pt feels SOB on minimally movements See went into atrial with RVR yesterday much better today She wants to be do not resuscitate discussed with her code status Review of Systems Review of Systems: All systems reviewed & are unremarkable except as noted in HPI and below Exam Narrative: GENERAL:well-nourished frail thin chronically ill emphysemic RESPIRATORY: respirations labored on speaking. Poor lung exchange bilateral end expiratory wheezing i CARDIOVASCULAR: Regular rate and rhythm without murmurs, rubs, or gallops. ABDOMINAL: Soft, nontender, nondistended, no hepatosplenomegaly. Normoactive BS. MUSCULOSKELETAL: no Epigastric and no hypochondrial tenderness SKIN: Warm, dry, normal color. No rashes. NEURO: A&O X3. Moves all extremities PSYCHIATRIC: Appropriate mood and affect. Normal interaction. Objective Data Vital Signs Vital Signs: Vital Signs - 24 hr 08/04/22 11:49 08/04/22 12:00 08/04/22 12:00 Temperature 98.3 F Pulse Rate 118 H 127 H Respiratory Rate 20 Blood Pressure 78/64 L Pulse Oximetry 95 95 Oxygen Delivery Nasal Cannula Oxygen Flow Rate 2 Fraction of Inspired Oxygen 08/04/22 13:42 08/04/22 13:54 08/04/22 14:10 Temperature Pulse Rate 96 103 H Respiratory Rate 20 20 Blood Pressure 113/77 Pulse Oximetry Oxygen Delivery Oxygen Flow Rate Fraction of Inspired Oxygen 08/04/22 16:42 08/04/22 14:00 08/04/22 16:00 Temperature 97.3 F L Pulse Rate 127 H 136 H 142 H Respiratory Rate 20 Blood Pressure 87/73 L Pulse Oximetry 92 Oxygen Delivery Oxygen Flow Rate Fraction of Inspired Oxygen 08/04/22 16:00 08/04/22 18:00 08/04/22 20:00 Temperature 98.0 F Pulse Rate 124 H 130 H Respiratory Rate 20 Blood Pressure 144/78 H Pulse Oximetry 95 93 Oxygen Delivery Nasal Cannula Oxygen Flow Rate 2 Fraction of Inspired Oxygen 08/04/22 20:00 08/04/22 21:07 08/04/22 21:22 Temperature Pulse Rate 130 H 156 H Respiratory Rate 20 24 H Blood Pressure Pulse Oximetry 93 93 Oxygen Delivery Nasal Cannula Nasal Cannula Oxygen Flow Rate 2 4 Fraction of Inspired Oxygen 08/04/22 21:22 08/04/22 21:43 08/04/22 20:00 Temperature Pulse Rate 15
--- NOTE | 2022-08-05 11:53 | PM.PNPUL ---
Progress Note: A&P Assessment and Plan (1) COPD with acute exacerbation: Code(s): J44.1 - Chronic obstructive pulmonary disease with (acute) exacerbation Status: Acute Assessment and Plan: this 77-year-old female with end-stage COPD/ emphysema chronic hypoxemic hypercapnic respiratory failure on home ventilatory support, also on nebulized maintenance bronchodilators for COPD was hospitalized with shortness of breath. The patient has been treated for atrial fibrillation and also for COPD exacerbation. Her respiratory status over the last 24 hours has been stable. Patient has incapacitating dyspnea with any activities but what is more troubling her is uncontrolled anxiety especially in a.m.. The patient has been using Xanax p.r.n.. It appears as though this hospitalization was precipitated by atrial fibrillation. The patient is also receiving treatment for COPD exacerbation. Chest x-ray showed new infiltrates. Plan:; Continue with current management for possible COPD exacerbation. I have switched patient to oral steroids. I would suggest to continue with Ativan 1 mg tid prn to control anxiety. Patient will probably need to remain on anti anxiety medication at home as she has end-stage COPD probably not responding to any treatment she is on. anxiety seems to be the major problem which is greatly compromising quality of life. This Ativan does may help her more than Xanax. after lengthy discussion about end-stage disease the patient may consider hospice care. (2) New onset a-fib: Code(s): I48.91 - Unspecified atrial fibrillation Status: Acute (3) History of DVT (deep vein thrombosis): Code(s): Z86.718 - Personal history of other venous thrombosis and embolism Status: Acute (4) Anxiety: Code(s): F41.9 - Anxiety disorder, unspecified Status: Acute Subjective Date/time seen: 08/05/22 11:53 Interval history: patient stated she is feeling about the same. She had increased anxiety this a.m.. She has been on both Xanax and Ativan for anxiety she is also on IV steroids, nebulized short-acting bronchodilators and antibiotics for COPD exacerbation. Also on treatment for atrial fibrillation. She has no new respiratory symptoms other than increased anxiety this a.m.. She appears to be a very intelligent patient with his knowledge about her disease. She asked ways control her anxiety which makes her incapacitating dyspnea even worse. She was recently prescribed Xanax p.r.n. home. Patient had less anxiety/ shortness of breath when she was on opiate for pain control. Review of Systems Review of Systems: All systems reviewed & are unremarkable except as noted in HPI and below ( HPI and below) Objective Data Vital Signs Vital Signs: Vital Signs - 24 hr 08/04/22 12:00 08/04/22 12:00 08/04/22 13:42 Temperature Pulse Rate 127 H 96 Respiratory Rate 20 Blood Pressure Pulse Oximetry 95 Oxygen Delivery Nasal Cannula Oxygen Flow Rate 2 Fraction of Inspired Oxygen 08/04/22 13:54 08/04/22 14:10 08/04/22 16:42 Temperature 36.3 C L Pulse Rate 103 H 127 H Respiratory Rate 20 20 Blood Pressure 113/77 87/73 L Pulse Oximetry 92 Oxygen Delivery Oxygen Flow Rate Fraction of Inspired Oxygen 08/04/22 14:00 08/04/22 16:00 08/04/22 16:00 Temperature Pulse Rate 136 H 142 H Respiratory Rate Blood Pressure Pulse Oximetry 95 Oxygen Delivery Nasal Cannula Oxygen Flow Rate 2 Fraction of Inspired Oxygen 08/04/22 18:00 08/04/22 20:00 08/04/22 20:00 Temperature 36.7 C Pulse Rate 124 H 130 H 130 H Respiratory Rate 20 20 Blood Pressure 144/78 H Pulse Oximetry 93 93 Oxygen Delivery Nasal Cannula Oxygen Flow Rate 2 Fraction of Inspired Oxygen 08/04/22 21:07 08/04/22 21:22 08/04/22 21:22 Temperature Pulse Rate 156 H Respiratory Rate 24 H Blood Pressure Pulse Oximetry 93 94 Oxygen Deliv
--- NOTE | 2022-08-05 13:24 | PCOTNOTE ---
Attempted occupational therapy treatment. Patient and family refused due to wanting patient to rest and her high heart rate. HR 95 bpm. Educated patient and family on importance of keeping endurance and strength in order to ambulate around the house and get on and off the toilet or chair. Patient and family verbalize understanding and continue to request no therapy at this time.
[2022-08-05] MEDS: LORazepam (*CRX) 1 MG TABLET PO ×2 (13:33→21:52)
[2022-08-05] MEDS: POTASSIUM CHLORIDE 20 MEQ TABLET 40 MEQ PO (13:34)
[2022-08-05] MEDS: RIVAROXABAN 20 MG TABLET PO (17:01)
[2022-08-06] VITALS (17 sets, daily range): BP systolic 122–137; BP diastolic 61–84; PULSE 65–101; RESP 13–26; TEMP 36.4–36.6; O2SAT 91–99
[2022-08-06] MEDS: IPRATROPIUM BR 0.02% INH SOLN 0.5 MG/2.5 ML VIAL INHALATION ×3 (01:55→13:26)
[2022-08-06] MEDS: AMIODARONE 360 MG/D5W 200 ML 360 MG/200 ML BAG 16.67 MG IV CONT (02:07)
[2022-08-06 04:46] LABS: Eosinophils Percent Auto 0.3 % (0-4.4); Hemoglobin 12.4 g/dL (12.0-15.0); Immature Granulocyte Absolute 0.02 K/mm3 (0.00-0.031); Immature Granulocyte Percent A 0.3 % (0-0.5); Lymphocytes Absolute Auto 0.81 K/mm3 (0.9-3.2); Lymphocytes Percent Auto 12.7 % (18.3-44.2); Mean Corpuscular HGB Conc 31.8 g/dl (32-36); Mean Corpuscular Hemoglobin 29.7 pg (26-34); Mean Corpuscular Volume 93.5 fl (80-100); Mean Platelet Volume 10.1 fl (7.4-10.4); Monocytes Absolute Auto 0.6 K/mm3 (0.1-0.6); Monocytes Percent Auto 9.1 % (2.6-8.5); Neutrophils Absolute Auto 4.9 K/mm3 (1.3-6.7); Neutrophils Percent Auto 77.6 % (45.5-73.1); Platelet Count Result 239 k/mm3 (150-375); Red Blood Count 4.17 M/mm3 (4.2-5.4); Red Cell Distribution Width 13.2 % (11.5-14.5); White Blood Count 6.4 K/mm3 (4.5-10.0)
[2022-08-06 04:59] LABS: Alanine Aminotransferase 23 U/L (6-35); Albumin Level 3.5 g/dL (3.5-5.1); Alkaline Phosphatase 45 U/L (38-126); Anion Gap 5 mmol/L (8-16); Aspartate Amino Transferase 20 U/L (14-36); Bilirubin,Total 0.4 mg/dL (0.2-1.3); Blood Urea Nitrogen 30 mg/dL (7-17); Calcium 7.8 mg/dL (8.4-10.2); Carbon Dioxide 31 mmol/L (22-30); Chloride 96 mmol/L (98-107); Estimated Glomerular Filt Rate > 60; Glucose 132 mg/dL (65-110); Magnesium 2.5 mg/dL (1.6-2.3); Potassium 3.4 mmol/L (3.4-5.0); Sodium 132 mmol/L (137-145)
[2022-08-06] MEDS: LORazepam (*CRX) 1 MG TABLET PO ×2 (06:11→18:19)
[2022-08-06] MEDS: DICLOFENAC SOD 25 MG TABLET.EC 50 MG PO ×2 (06:11→14:20)
[2022-08-06] MEDS: predniSONE 20 MG, predniSONE 10 MG 30 MG PO (08:16)
[2022-08-06] MEDS: guaiFENesin 12 HR 600 MG TABCR PO (08:16)
[2022-08-06] MEDS: amLODIPine BESYLATE 5 MG TABLET 10 MG PO (08:16)
[2022-08-06] MEDS: levoFLOXacin 750 MG TABLET PO (08:16)
[2022-08-06] MEDS: clonazePAM (*CRX) 0.5 MG TABLET PO ×2 (08:19→18:19)
--- NOTE | 2022-08-06 08:30 | PM.PNCARD ---
Progress Note: A&P Assessment and Plan (1) New onset a-fib: Code(s): I48.91 - Unspecified atrial fibrillation Status: Acute Assessment and Plan: 77-year-old lady with severe chronic COPD admitted several days ago with shortness of breath/COPD exacerbation. She developed atrial fibrillation with rapid ventricular response with a heart rate up to the 180's. She is generally rate controlled at times but does have RVR intermittently. shift to p.o. amiodarone 200mg daily today. She is being discharged home on hospice possibly today. If she develops tachycardia off the IV amiodarone, can add low dose digoxin for rate control. Continue Xarelto 20mg nightly for stroke prophylaxis. Subjective Date/time seen: 08/06/22 08:30 Cardiology follow up for atrial fibrillation Remains rate controlled today. She is feeling about the same. Plan is for her to discharge home on hospice later today. Review of Systems Constitutional: Constitutional: Reports lethargy Eyes: Eyes: Reports no additional eye complaints ENT: Reports system reviewed and no additional complaints, except as documented Cardiovascular: Cardiovascular: Reports no additional cardiovascular complaints and Reports dyspnea Respiratory: Respiratory: Reports dyspnea Gastrointestinal: Gastrointestinal: Reports no additional gastrointestinal complaints Musculoskeletal: Musculoskeletal: Reports back pain and Reports arthralgias Neurologic: Reports system reviewed and no additional complaints, except as documented Endocrine: Endocrine: Reports no additional endocrine complaints Hematologic/Lymphatic: Hematologic/Lymphatic: Reports no additional hematologic/lymphatic complaints Allergic/Immunologic: Allergic/Immunologic: Reports no additional allergic/immunologic complaints Exam Const: Other: Pleasant very small short-statured frail woman who appears considerably older than her stated age HENMT: Mouth: Yes dry mucous membranes Eyes: Sclera: sclerae normal Neck: Neck: supple and no JVD Other: Carotid upstrokes are normal bilaterally Resp: Auscultation: wheezes expiratory wheezes and diminished lung sounds Other: Prolonged expiratory phase Cardio: Rate: regular rate Rhythm: abnormal rhythm irregularly irregular GI: Auscultation: normal bowel sounds Skin: General skin exam: normal color Neuro: Other: Alert and oriented normal cognition Extrem: Other: No edema Objective Data Vital Signs Vital Signs: Vital Signs - 24 hr 08/05/22 10:00 08/05/22 12:00 08/05/22 13:55 Temperature 36.2 C L Pulse Rate 88 70 82 Respiratory Rate 26 H 18 Blood Pressure 103/62 Pulse Oximetry 96 Oxygen Delivery Oxygen Flow Rate Fraction of Inspired Oxygen 08/05/22 14:06 08/05/22 12:00 08/05/22 12:00 Temperature Pulse Rate 81 98 Respiratory Rate 18 Blood Pressure Pulse Oximetry 96 Oxygen Delivery Nasal Cannula Oxygen Flow Rate 4 Fraction of Inspired Oxygen 08/05/22 14:00 08/05/22 15:33 08/05/22 16:00 Temperature Pulse Rate 89 92 88 Respiratory Rate Blood Pressure Pulse Oximetry Oxygen Delivery Oxygen Flow Rate Fraction of Inspired Oxygen 08/05/22 16:00 08/05/22 16:00 08/05/22 11:52 Temperature 36.0 C L Pulse Rate 75 Respiratory Rate 24 H Blood Pressure 127/67 Pulse Oximetry 96 95 94 Oxygen Delivery Nasal Cannula Nasal Cannula Oxygen Flow Rate 4 4 Fraction of Inspired Oxygen 08/05/22 18:00 08/05/22 19:55 08/05/22 20:28 Temperature 36.7 C Pulse Rate 88 87 91 Respiratory Rate 20 22 H Blood Pressure 144/67 H Pulse Oximetry 94 Oxygen Delivery Oxygen Flow Rate Fraction of Inspired Oxygen 08/05/22 20:28 08/05/22 20:56 08/05/22 20:00 Temperature Pulse Rate 105 H 81 Respiratory Rate 22 H Blood Pressure Pulse Oximetry 93 Oxygen Delivery Nasal Cannula Oxygen Flow Rate 4 Fraction of Inspired Oxygen
--- NOTE | 2022-08-06 09:13 | ECG_ITS ---
Measurements Intervals [place] Rate: 87 P: 84 AR: 122 QRS: 60 QRSD: 80 T: -39 QT: 342 QTc: 414 Interpretive Statements SINUS RHYTHM ATRIAL COUPLETS AND ATRIAL PREMATURE COMPLEX BORDERLINE ST-T WAVE ABNORMALITY- ANTEROLAT/INF LEADS BASELINE WANDER- I, II, III, V3-V6 BORDERLINE ECG COMPARED TO ECG 08/04/2022 23:16:28 NO SIGNIFICANT CHANGES Electronically Signed On 08-06-2022 10:32:55 DOCUMENTATION SPEC by Keny Marcos D.O.
[2022-08-06] MEDS: AMIODARONE HCL 200 MG TABLET PO (09:59)
--- NOTE | 2022-08-06 11:01 | PM.PNPUL ---
Progress Note: A&P Assessment and Plan (1) COPD with acute exacerbation: Code(s): J44.1 - Chronic obstructive pulmonary disease with (acute) exacerbation Status: Acute Assessment and Plan: this 77-year-old female with end-stage COPD/ emphysema chronic hypoxemic hypercapnic respiratory failure on home ventilatory support, also on nebulized maintenance bronchodilators for COPD was hospitalized with shortness of breath. The patient has been treated for atrial fibrillation and also for COPD exacerbation. Her respiratory status over the last 24 hours has been stable. Patient has incapacitating dyspnea with any activities but what is more troubling her is uncontrolled anxiety especially in a.m.. The patient has been using Xanax p.r.n.. It appears as though this hospitalization was precipitated by atrial fibrillation. The patient is also receiving treatment for COPD exacerbation. Chest x-ray showed new infiltrates. respiratory status improved today. She is receiving treatment for atrial fibrillation she is back in normal sinus rhythm while on amiodarone. Plan:; Continue with current management for COPD exacerbation. Have decreased oral steroids. Patient chose hospice care but will continue treatment for COPD/respiratory failure. Patient will continue with prednisone 20 mg for another 5 days, will continue with home O2, home ventilatory support as ordered by her adjunct psychology faculty member. She will continue with Ativan 1 mg q.8 hours p.r.n. for anxiety. Had a lengthy discussion with the patient how to use Ativan for anxiety. Told the patient to limit use of nebulized albuterol and nebulized Brovana as she has no response to bronchodilators on previous pulmonary function testing; these beta agonist may increase shortness of breath through increase in anxiety. the patient will continue to follow with her adjunct psychology faculty member at [facility]. will sign off please call with any questions. (2) New onset a-fib: Code(s): I48.91 - Unspecified atrial fibrillation Status: Acute (3) History of DVT (deep vein thrombosis): Code(s): Z86.718 - Personal history of other venous thrombosis and embolism Status: Acute (4) Anxiety: Code(s): F41.9 - Anxiety disorder, unspecified Status: Acute Subjective Date/time seen: 08/06/22 11:01 Interval history: patient doing better this a.m.. Anxiety better control this a.m., she was placed on Ativan yesterday. Patient evaluated by palliative services. Overall less shortness of breath. Exam Narrative: GENERAL APPEARANCE: Well developed, well nourished, alert and cooperative, and appears to be in Moderate distress while on supplemental oxygen via nasal cannula SKIN: Inspection of the skin reveals no rashes, ulcerations or petechiae. HEENT: Sclerae anicteric and conjunctivae pink and moist. Extraocular movements were intact and pupils were equal, round. The oral mucosa, hard and soft palate, tongue and posterior pharynx were normal. NECK: Supple. There was no thyroid enlargement, and no tenderness, or masses were felt. LUNGS: hyperinflated lungs, distant breath sounds bilaterally with few crackles at bases posteriorly, no wheezing CARDIAC: There was an irregular rate and rhythm without any murmurs, gallops, rubs. ABDOMEN: Soft and nontender with normal bowel sounds. There was no organomegaly. LYMPH NODES: No lymphadenopathy was appreciated in the neck, axillae or groin. EXTREMITIES: No cyanosis, clubbing or edema. NEUROLOGIC: Alert and oriented x 3. Normal affect. Objective Data Vital Signs Vital Signs: Vital Signs - 24 hr 08/05/22 12:00 08/05/22 13:55 08/05/22 14:06 Temperature 36.2 C L Pulse Rate 70 82 81 Respiratory Rate 26 H 18 18 Blood Pressure 103/62 Pulse Oximetry 96 Oxygen Delivery Oxygen Flow Rate Fraction of Inspired Oxygen 08/05/22 12:00 08/05/22 12:00 08/05/22 14:00 Temperature Pulse Rate 98 89 Respiratory Rate Blood Pressure
--- NOTE | 2022-08-06 14:48 | PM.DS ---
DS: Admitting Diagnosis Discharge Date 08/06/2022 Admitting Diagnosis Shortness of breath DS: Discharge Diagnosis Discharge Diagnosis (1) COPD with acute exacerbation: Code(s): J44.1 - Chronic obstructive pulmonary disease with (acute) exacerbation Status: Acute (2) New onset a-fib: Code(s): I48.91 - Unspecified atrial fibrillation Status: Acute (3) Hypertension: Code(s): I10 - Essential (primary) hypertension Status: Acute (4) PSVT (paroxysmal supraventricular tachycardia): Code(s): I47.1 - Supraventricular tachycardia Status: Acute (5) Anxiety: Code(s): F41.9 - Anxiety disorder, unspecified Status: Acute DS: Summary Hospital Course Hospital Course: # COPD with acute exacerbation: Pt has End stage copd Pt uses nebulizers and non invasive ventilator at home Pt is on?Xopenex nebulisers here Oxygen sat 98% 2 L nasal cannula with BIPAP PRN in the room chest x-ray severe emphysema started on iv steorid which was switched to prednisone and will be continued. add ns nebulisers add mucinex pulmonology consulted. patient opted for hospice and was arranged at the time of discharge. # New onset a-fib: pt went into afib 08/04 amiodarone IV was started by Cardiology and is switched to oral digoxin oral Cardiology consult.? calcium channel started.?beta blockers stopped Continue Lovenox.? This was switched to Xarelto at discharge for stroke prophylaxis 2D echo : EF 40-45% mild pulmonary hypertension mild TR trace MR # hypertension: chronic and stable # PSVT: pt is on tele monitor # anxiety disorder: low dose clonazepam 0.5 b.i.d. on Ativan p.r.n. # disposition: It that Patient interested in hospice referral.? Discussed code status wants to be do not resuscitate.? Hospice referral was sent and arrangement for hospice care at home being done. Time Spent with Patient Time attestation: Total time spent providing and/or coordinating discharge services: 45 minutes Exam Narrative: GENERAL:well-nourished frail thin chronically ill emphysemic RESPIRATORY: respirations labored on speaking. Poor lung exchange bilateral end expiratory wheezing i CARDIOVASCULAR: Regular rate and rhythm without murmurs, rubs, or gallops. ABDOMINAL: Soft, nontender, nondistended, no hepatosplenomegaly. Normoactive BS. MUSCULOSKELETAL: no Epigastric and no hypochondrial tenderness SKIN: Warm, dry, normal color. No rashes. NEURO: A&O X3. Moves all extremities PSYCHIATRIC: Appropriate mood and affect. Normal interaction. DS: Data Data Completed and Pending Completed studies during hospitalization: Exam Type: ? ? CA echo dop color flow w con Study Info Indications ? ? I48.1 - Persistent atrial fibrillation Complete two-dimensional, color flow and Doppler transthoracic echocardiogram is performed with contrast to opacify the left ventricle and to improve the deliniation of the left ventricle endocardial borders. Account #: ? ? [id number] Contrast/Agitated Saline Contrast/Ag. Saline: ? ? Definity Amount: ? ? --- ml Administered By: ? ? Mere,? Tamra [facility] [place] Reason for Poor Study: ? ? patient body habitus Summary ? 1. Technically difficult study with limited views.? Definity contrast administered. ? 2. Left ventricular chamber dimension is normal. ? 3. Left ventricular systolic function is moderately reduced, estimated at 40-45% with hypokinesis of the apical septum. ? 4. There is no increased left ventricular wall thickness. ? 5. The left ventricular diastolic function is abnormal. ? 6. There is no aortic valve stenosis. ? 7. There is trace mitral valve regurgitation. ? 8. There is mild tricuspid valve regurgitation. ? 9. Mild pulmonary hypertension, estimated pulmonary arterial systolic pressure is 42 mmHg. Left Ventricle ? Left ventricular chamber dimension is normal. ? Left ventricular systolic function is moderately reduc
[2022-08-06] MEDS: RIVAROXABAN 20 MG TABLET PO (18:19)
== END 2022-08-06 18:57 | disposition hospice, home (50) | DRG 190 ==
LOC: ANHED 10:15 → ANHIMU 13:20
PROVIDERS: Family Medicine; Admitting Provider Internal Medicine; Emergency Provider Emergency Medicine; PCP Family Medicine; Visit Provider Internal Medicine
DX: J43.9 Emphysema, unspecified (principal); J96.21 Acute and chronic respiratory failure with hypoxia; I47.1 Supraventricular tachycardia; I48.91 Unspecified atrial fibrillation; I10 Essential (primary) hypertension; I95.9 Hypotension, unspecified; F41.9 Anxiety disorder, unspecified; M19.90 Unspecified osteoarthritis, unspecified site; M51.36 Other intervertebral disc degeneration, lumbar region; K21.9 Gastro-esophageal reflux disease without esophagitis; K58.9 Irritable bowel syndrome, unspecified; Z20.822 Contact with and (suspected) exposure to COVID-19; G89.29 Other chronic pain; M54.9 Dorsalgia, unspecified; Z90.49 Acquired absence of other specified parts of digestive tract; Z90.710 Acquired absence of both cervix and uterus; Z87.891 Personal history of nicotine dependence; Z99.81 Dependence on supplemental oxygen; Z86.718 Personal history of other venous thrombosis and embolism
CPT/HCPCS: 36415; 36600; 71045; 80048; 80053; 82375; 82805; 82948; 83050; 83605; 83735; 83880; 85025; 85027; 87040; 87636; 93005; 94002; 94003; 94640; 97161; 97165; A9270; C8929; J0282; J1160; J1650; J2930; J7121; J7512; Q9957